=== PATIENT | female | born 1990 | race Caucasian/White ===

== ENCOUNTER 2019-05-21 15:52 | Emergency (ER) | payer OTHER, SELFPAY ==
--- NOTE | ~2019-05-21 | CT_ITS ---
EXAMINATION: CT abdomen pelvis w con DATE: 05/21/2019 17:57 INDICATION: Right upper quadrant abdominal pain. Nausea. TECHNIQUE: Computed tomography (CT) of the abdomen and pelvis was performed with 100 mL Omnipaque-350 intravenous contrast. Automated exposure control and iterative reconstruction technique were employe d. The dose-length product was 847.20 mGy-cm. COMPARISON: None FINDINGS: Minimal dependent atelectasis in the right lower lobe. Heart size is normal. No pericardial or pleura l effusion. Liver, gallbladder, spleen, pancreas, bilateral adrenal glands and kidneys are normal. No abnormal bowel wall thickening or obstruction. Appendix is normal. Bladder is normal. Tampon within the vaginal vault. Anteverted uterus and bilateral adnexa are unremarkable. No free intraperitoneal g as or fluid. No pathologically enlarged abdominal or pelvic lymphadenopathy. IMPRESSION: 1. No acute intra-abdominal/pelvic process. Specifically the gallbladder and appendix are normal. Reviewed, dictated and finalized at location A. NCT PSYCHOLOGY INSTRUCTOR IMPRESSION: 1. No acute intra-abdominal/pelvic process. Specifically the gallbladder and ap pendix are normal.
[2019-05-21 15:57] VITALS: BP 151/102; PULSE 82; RESP 18; TEMP 36.2; O2SAT 98
--- NOTE | 2019-05-21 16:05 | ED.ABDPAIN ---
HPI - Abdominal Pain General Chief Complaint: Abdominal Pain Stated Complaint: abd pain Time Seen by Provider: 05/21/19 15:55 Source: patient Mode of arrival: ambulatory Limitations: no limitations History of Present Illness HPI narrative: A 28 y/o female pt presents to the ED, with c/o constant burning accompanied with intermittent sharp RUQ ABD pain. Pt states that she had an episode similar to this x 1 year ago and was seen at an urgent care who suspected that it may be her gallbladder, and suggested that she follow up with a PCP. She adds that she saw a PCP and had an US, but there were no findings. She notes feeling nauseous and denies any aggravating or alleviating factors. Pt states she feels discomfort with food and liquid intake, but notes this is chronic. She denies any vomiting, diarrhea, constipation, fevers, chills, sweats, dysuria, or frequent/infrequent urination. Pt denies having any significant PMHx and notes being a former smoker, but states that she has quit. She rates her pain as a 7/10 and denies taking any medications prior to arrival to the ED. MD elicited complaint: abdominal pain Onset (ago): hour(s) Pain Consistency: constant and intermittent Location: RUQ Pain scale (0-10): 7 Quality: sharp (intermittent) and burning (constant) Exacerbating factors: nothing Relieving factors: nothing Context: confirms history of similar episodes (x 1 year ago) Associated symptoms: nausea Related Data Home Medications Medication Instructions Recorded Confirmed escitalopram oxalate 20 mg PO HS 05/21/19 Allergies Allergy/AdvReac Type Severity Reaction Status Date / Time No Known Allergies Allergy Verified 05/21/19 16:01 Review of Systems Review of Systems: All systems reviewed & are unremarkable except as noted in HPI and below Constitutional: Constitutional: Denies chills, Denies excessive sweating and Denies fever(s) Gastrointestinal: Gastrointestinal: Reports abdominal pain (burning, sharp RUQ), Denies constipation, Denies diarrhea, Reports nausea, Denies vomiting and Reports other (discomfort with food intake, chronic) Genitourinary: Genitourinary: Denies nocturia, Denies dysuria and Denies other (infrequent urination) [facility] Past Medical History Medical History (Updated 05/21/19 @ 19:27 by Paolo Webb MD) No significant past medical history Surgical History Surgical History (Updated 05/21/19 @ 17:50 by Jessica Daley [employer]) No significant past surgical history Social History Social History (Updated 05/21/19 @ 17:50 by Jessica Daley [employer]) Smoking status: Former smoker Gender identity (if verbalized by the patient): Female Exam Narrative: Exam Narrative: GENERAL: Well-appearing, well-nourished, and in no acute distress. HEAD: Normocephalic, atraumatic. ENT: Mucous membranes moist. CHEST: Clear to auscultation. No respiratory distress. HEART: Regular rate and rhythm. Normal peripheral pulses. ABDOMEN: Soft, mild RUQ tenderness, nondistended. EXTREMITIES: Normal range of motion. No edema. SKIN: Warm, dry, no rash. NEURO: Alert and oriented x3. Course Course Emergency Course: Informed of results. Unremarkable evaluation. Follow-up with PCP. Vital Signs Vital signs: Vital Signs Temperature 97.2 F L 05/21/19 15:57 Pulse Rate 82 05/21/19 15:57 Respiratory Rate 18 05/21/19 15:57 Blood Pressure 151/102 H 05/21/19 15:57 Pulse Oximetry 98 05/21/19 15:57 Temperature 97.2 F L 05/21/19 15:57 Pulse Rate 81 05/21/19 18:41 Respiratory Rate 20 05/21/19 18:41 Blood Pressure 146/104 H 05/21/19 18:41 Pulse Oximetry 99 05/21/19 18:41 MDM - Abdominal Pain Lab Data Result diagrams: 05/21/19 16:04 05/21/19 16:04 Labs: Lab Results 05/21/19 05/21/19 05/21/19 Range/Units 16:04 16:04 16:45 WBC 9.3 (4.5-10.0) K/mm3 RBC 4.49 (4.2-5.4) M/mm3 Hgb 13.5 (12.0-15.0) g/dL Hct 40.6 (37.0-47.0) % M
[2019-05-21 16:19] LABS: Basophils Percent Auto 0.4 % (0.2-1.2); Eosinophils Percent Auto 0.2 % (0-4.4); Hematocrit 40.6 % (37.0-47.0); Hemoglobin 13.5 g/dL (12.0-15.0); Immature Granulocyte Absolute 0.02 K/mm3 (0.00-0.031); Immature Granulocyte Percent A 0.2 % (0-0.5); Lymphocytes Percent Auto 24.8 % (18.3-44.2); Mean Corpuscular HGB Conc 33.3 g/dl (32-36); Mean Corpuscular Hemoglobin 30.1 pg (26-34); Mean Corpuscular Volume 90.4 fl (80-100); Mean Platelet Volume 10.6 fl (7.4-10.4); Monocytes Absolute Auto 0.6 K/mm3 (0.1-0.6); Neutrophils Absolute Auto 6.3 K/mm3 (1.3-6.7); Neutrophils Percent Auto 68.4 % (45.5-73.1); Platelet Count Result 287 k/mm3 (150-375); Red Blood Count 4.49 M/mm3 (4.2-5.4); Red Cell Distribution Width 12.5 % (11.5-14.5); White Blood Count 9.3 K/mm3 (4.5-10.0)
[2019-05-21 16:27] LABS: Alanine Aminotransferase 16 U/L (4-35); Albumin Level 4.6 g/dL (3.5-5.1); Alkaline Phosphatase 68 U/L (38-126); Aspartate Amino Transferase 26 U/L (14-36); Bilirubin,Total 0.4 mg/dL (0.2-1.3); Blood Urea Nitrogen 12 mg/dL (7-17); Calcium 9.1 mg/dL (8.4-10.2); Carbon Dioxide 25 mmol/L (22-30); Chloride 105 mmol/L (98-107); Estimated CRCL calculation 113 ml/min; Estimated Glomerular Filt Rate > 60; Glucose 93 mg/dL (65-105); Lipase 117 U/L (23-300); Potassium 3.7 mmol/L (3.4-5.0); Sodium 139 mmol/L (137-145)
[2019-05-21] MEDS: ONDANSETRON INJ 4 MG/2 ML VIAL IV PUSH (16:38)
[2019-05-21] MEDS: MORPHINE SULFATE 4 MG/ML INJ IV PUSH (16:38)
[2019-05-21] MEDS: SODIUM CHLORIDE 0.9% IV 1,000 ML 999 ML IV CONT (16:43)
[2019-05-21 17:00] LABS: Add Urine Microscopic? YES; Appearance Urine Clear (Clear); Bacteria Urine Trace /hpf; Bilirubin Urine Negative (Negative); Blood Urine 3+ (Negative); Color Urine Yellow (Yellow); Glucose Urine UA Negative (Negative); Ketones Urine Trace mg/dL (Negative); Leukocyte Esterase Ur Negative LEU/UL (Negative); Mucus Urine Rare /lpf; Nitrate Urine Negative (Negative); Protein Urine 1+ mg/dL (Negative); RBC Urine 21-50 /hpf (0-2); Squamous Epithelial Cell Urine Moderate /hpf (Few); WBC Urine 0-3 /hpf
[2019-05-21 17:02] LABS: Specific Grav Ur 1.031 (1.001-1.035)
[2019-05-21] MEDS: BELLADONNA ALK/PHENOB ELIX 10 ML, MAG HYDROX/ALUMINUM HYD/SIMETH 30 ML, LIDOCAINE HCL 2... PO (18:37)
[2019-05-21 18:41] VITALS: BP 146/104; PULSE 81; RESP 20; O2SAT 99
[2019-05-21 19:36] VITALS: BP 138/91; PULSE 72; RESP 20; O2SAT 100
== END 2019-05-21 19:39 | disposition home or self-care (01) ==
PROVIDERS: Emergency Provider Emergency Medicine; PCP Student in an Organized Health Care Education/Training Program
DX: R10.11 Right upper quadrant pain (principal); Z87.891 Personal history of nicotine dependence
CPT/HCPCS: 36415; 74177; 80053; 81001; 81025; 83690; 85025; 96361; 96374; 96375; 99284; A9270; J2270; J2405; J7030; Q9967

== ENCOUNTER 2020-01-23 05:24 | Emergency (ER) | payer OTHER, SELFPAY ==
--- NOTE | ~2020-01-23 | CT_ITS ---
EXAMINATION: CT abdomen pelvis w con INDICATION: Epigastric pain TECHNIQUE: Computed tomographic images of the abdomen and pelvis were obtained after the administrati on of 100 cc of Omnipaque 350 intravenous contrast. The dose-length product (DLP) was 1037.78 mGy-cm. Automated exposure control and iterative reconstruction technique were employed. COMPARISON: 05/21/2019 FINDINGS: Minimal dependent atelectasis is present in the lung bases. The heart size is normal. The l iver, spleen, pancreas, gallbladder, and adrenal glands are normal. The kidneys are unremarkable. No pathologically enlarged abdominal or pelvic lymph nodes are identified. There is no free intraperiton eal gas or evidence of bowel obstruction. There is a greater than expected amount of liquid stool in the colon. The appendix is normal. IMPRESSION: 1. Greater than expected amount of liquid stool in the colon which could reflect enteritis. Reviewed, dictated and finalized at location A. R INSPECTOR IMPRESSION: 1. Greater than expected amount of liquid stool in the colon which could reflec t enteritis.
--- NOTE | 2020-01-23 05:29 | ED.ABDPAIN ---
HPI - Abdominal Pain General Chief Complaint: Abdominal Pain <Abad Bingham MD - Last Filed: 01/23/20 05:43> Stated Complaint: stomach pain <Abad Bingham MD - Last Filed: 01/23/20 05:43> Time Seen by Provider: 01/23/20 05:29 <Abad Bingham MD - Last Filed: 01/23/20 05:43> History of Present Illness HPI narrative: Severe sharp epigastric pain since last night. Radiates to the back. Associated with nausea, no vomiting. She tried tylenol without improvement. SHe has a h/o chronic abdominal pain, but says that this is worse and different. She had a negative CT and gall bladder US in May. <Abad Bingham MD - Last Filed: 01/23/20 05:43> Related Data Home Medications: Home Medications Medication Instructions Recorded Confirmed escitalopram oxalate 20 mg PO HS 05/21/19 escitalopram oxalate 20 mg tablet 20 mg PO DAILY 06/05/19 <Abad Bingham MD - Last Filed: 01/23/20 05:43> Allergies/Adverse Reactions: Allergies Allergy/AdvReac Type Severity Reaction Status Date / Time No Known Allergies Allergy Verified 06/05/19 10:04 <Abad Bingham MD - Last Filed: 01/23/20 05:43> Review of Systems Review of Systems: All systems reviewed & are unremarkable except as noted in HPI and below <Abad Bingham MD - Last Filed: 01/23/20 05:43> Cardiovascular: Cardiovascular: Denies chest pain <Abad Bingham MD - Last Filed: 01/23/20 05:43> Respiratory: Respiratory: Denies dyspnea <Abad Bingham MD - Last Filed: 01/23/20 05:43> Gastrointestinal: Gastrointestinal: Reports abdominal pain, Denies constipation, Denies diarrhea, Reports nausea and Denies vomiting <Abad Bingham MD - Last Filed: 01/23/20 05:43> Genitourinary: Genitourinary: Denies hematuria, Denies nocturia and Denies dysuria <Abad Bingham MD - Last Filed: 01/23/20 05:43> Neurologic: Denies numbness and Denies weakness <Abad Bingham MD - Last Filed: 01/23/20 05:43> [facility] Past Medical History Medical History: Medical History (Updated 01/23/20 @ 07:45 by Patrizia Cardenas MD) No significant past medical history RUQ pain <Abad Bingham MD - Last Filed: 01/23/20 05:43> Surgical History Surgical History: Surgical History No significant past surgical history <Abad Bingham MD - Last Filed: 01/23/20 05:43> Social History Social History: Social History Smoking status: Former smoker Gender identity (if verbalized by the patient): Female <Abad Bingham MD - Last Filed: 01/23/20 05:43> Exam Const: General: no acute distress and alert <Patrizia Cardenas MD - Last Filed: 01/23/20 16:20> Orientation/consciousness: patient oriented x3 <Patrizia Cardenas MD - Last Filed: 01/23/20 16:20> Resp: Effort & Inspection: normal respiratory effort and no retractions <Patrizia Cardenas MD - Last Filed: 01/23/20 16:20> Auscultation: clear to auscultation bilaterally <Patrizia Cardenas MD - Last Filed: 01/23/20 16:20> Cardio: Rate: regular rate <Patrizia Cardenas MD - Last Filed: 01/23/20 16:20> Rhythm: regular rhythm <Patrizia Cardneas MD - Last Filed: 01/23/20 16:20> Heart sounds: no murmurs <Patrizia Cardenas MD - Last Filed: 01/23/20 16:20> GI: GI Palp: Yes Soft to palpation, Yes Tenderness to palpation present (GI) (epigastric, RUQ, LUQ), No Guarding due to palpation present (GI), No Rigid due to palpation and No Hernia present <Patrizia Cardenas MD - Last Filed: 01/23/20 16:20> Skin: General skin exam: normal color <Patrizia Cardenas MD - Last Filed: 01/23/20 16:20> Rashes: no rashes <Patrizia Cardenas MD - Last Filed: 01/23/20 16:20> Neuro: General: patient oriented x3 <Patrizia Cardenas MD - Last Filed: 01/23/20 16:20> Psych: Mental Status: mental status grossly normal <Patrizia Cardenas MD - Last Filed:
[2020-01-23 05:38] VITALS: BP 140/98; PULSE 103; RESP 22; TEMP 36.4; O2SAT 94
[2020-01-23] MEDS: ONDANSETRON INJ 4 MG/2 ML VIAL IV PUSH (05:49)
[2020-01-23] MEDS: SODIUM CHLORIDE 0.9% IV 1,000 ML 999 ML IV CONT (05:49)
[2020-01-23] MEDS: PANTOPRAZOLE SODIUM IV 40 MG VIAL IV PUSH (05:49)
[2020-01-23] MEDS: fentaNYL CITRATE INJ (*CRX) 100 MCG/2 ML VIAL 50 MCG IV PUSH (05:49)
[2020-01-23 06:02] LABS: Basophils Percent Auto 0.3 % (0.2-1.2); Hematocrit 42.2 % (37.0-47.0); Hemoglobin 14.5 g/dL (12.0-15.0); Immature Granulocyte Absolute 0.04 K/mm3 (0.00-0.031); Immature Granulocyte Percent A 0.4 % (0-0.5); Lymphocytes Absolute Auto 0.64 K/mm3 (0.9-3.2); Lymphocytes Percent Auto 6.3 % (18.3-44.2); Mean Corpuscular HGB Conc 34.4 g/dl (32-36); Mean Corpuscular Hemoglobin 30.7 pg (26-34); Mean Corpuscular Volume 89.4 fl (80-100); Mean Platelet Volume 10.5 fl (7.4-10.4); Monocytes Absolute Auto 0.8 K/mm3 (0.1-0.6); Monocytes Percent Auto 7.5 % (2.6-8.5); Neutrophils Absolute Auto 8.7 K/mm3 (1.3-6.7); Neutrophils Percent Auto 85.5 % (45.5-73.1); Platelet Count Result 265 k/mm3 (150-375); Red Blood Count 4.72 M/mm3 (4.2-5.4); White Blood Count 10.2 K/mm3 (4.5-10.0)
[2020-01-23 06:23] LABS: Alanine Aminotransferase 19 U/L (4-35); Albumin Level 4.5 g/dL (3.5-5.1); Alkaline Phosphatase 66 U/L (38-126); Anion Gap 13 mmol/L (8-16); Aspartate Amino Transferase 33 U/L (14-36); Bilirubin,Total 0.9 mg/dL (0.2-1.3); Blood Urea Nitrogen 11 mg/dL (7-17); Calcium 9.2 mg/dL (8.4-10.2); Carbon Dioxide 21 mmol/L (22-30); Chloride 105 mmol/L (98-107); Estimated CRCL calculation 110 ml/min; Estimated Glomerular Filt Rate > 60; Glucose 129 mg/dL (65-105); Lipase 164 U/L (23-300); Potassium 3.8 mmol/L (3.4-5.0); Sodium 139 mmol/L (137-145)
[2020-01-23 06:58] LABS: Add Urine Microscopic? YES; Appearance Urine Clear (Clear); Bacteria Urine Trace /hpf; Bilirubin Urine Negative (Negative); Blood Urine 2+ (Negative); Color Urine Yellow (Yellow); Glucose Urine UA Negative (Negative); Ketones Urine Trace mg/dL (Negative); Leukocyte Esterase Ur Negative LEU/UL (Negative); Mucus Urine Rare /lpf; Nitrate Urine Negative (Negative); Protein Urine 1+ mg/dL (Negative); Squamous Epithelial Cell Urine Few /hpf (Few); Urobilinogen Urine Negative mg/dL (<2.0); WBC Urine 0-3 /hpf
== END 2020-01-23 08:20 | disposition home or self-care (01) ==
PROVIDERS: Emergency Provider Emergency Medicine; PCP Student in an Organized Health Care Education/Training Program
DX: K52.9 Noninfective gastroenteritis and colitis, unspecified (principal)
CPT/HCPCS: 36415; 74177; 80053; 81001; 81025; 83690; 85025; 96361; 96374; 96375; 99284; C9113; J2405; J3010; J7030; Q9967

== ENCOUNTER 2024-04-07 07:15 | Observation (INO) | payer OTHER, SELFPAY ==
--- NOTE | ~2024-04-07 | CT_ITS ---
EXAMINATION: CT abdomen pelvis w con DATE: 04/07/2024 08:58 INDICATION: Abdominal pain TECHNIQUE: Computed tomography (CT) of the abdomen and pelvis was performed with 100 mL Omnipaque-350 intravenous contrast. Automated exposure control and iterative reconstruction technique were employe d. The dose-length product was 704.51 mGy-cm. COMPARISON: 09/22/2019 FINDINGS: Dependent atelectasis in bilateral lower lobes. Heart size is normal. No pericardial or pleural effus ion. Subcentimeter low-attenuation cyst versus hemangioma in the left hepatic lobe. Mild focal hepati c steatosis along the ligamentum teres and the gallbladder fossa spleen, pancreas, bilateral adrenal glands and kidneys are normal. Bladder and anteverted uterus are normal. 2.6 m cystic lesion at the r ight adnexa. Normal appendix. No bowel obstruction. Complex ascites with surrounding stranding in the cul-de-sac and along the bilateral adnexa with mild stranding along the adjacent distal sigmoid colo n. No organized abscess or free intraperitoneal gas. No pathologically enlarged abdominal or pelvic l ymphadenopathy. Bones are unremarkable. IMPRESSION: 1. Complex ascites and surrounding stranding in the deep pelvis. Differential would include hemoperit oneum potentially related to ovarian cyst rupture 2.5 cm cystic lesion at the right adnexa or periton itis which could relate either diverticulitis or pelvic inflammatory disease. Reviewed, dictated and finalized at location [facility] IMPRESSION: 1. Complex ascites and surrounding stranding in the deep pelvis. Differential w ould include hemoperitoneum potentially related to ovarian cyst rupture 2.5 cm cystic lesion at the right adnexa or peritonitis which could relate either dive rticulitis or pelvic inflammatory disease.
[2024-04-07 07:17] VITALS: BP 153/98; PULSE 122; RESP 17; TEMP 37.1; O2SAT 98
[2024-04-07 07:35] LABS: BEDSIDEPREGUCG Negative (Negative)
[2024-04-07 07:41] LABS: Basophils Absolute Auto 0.1 K/mm3 (0.0-0.1); Basophils Percent Auto 0.4 % (0.2-1.2); Eosinophils Absolute Auto 0.1 K/mm3 (0-0.3); Eosinophils Percent Auto 0.4 % (0-4.4); Hematocrit 37.6 % (37.0-47.0); Hemoglobin 12.8 g/dL (12.0-15.0); Immature Granulocyte Absolute 0.06 K/mm3 (0.00-0.031); Immature Granulocyte Percent A 0.4 % (0-0.5); Lymphocytes Absolute Auto 1.98 K/mm3 (0.9-3.2); Lymphocytes Percent Auto 14.1 % (18.3-44.2); Mean Corpuscular Hemoglobin 31.2 pg (26-34); Mean Corpuscular Volume 91.7 fl (80-100); Mean Platelet Volume 9.9 fl (7.4-10.4); Monocytes Absolute Auto 1.2 K/mm3 (0.1-0.6); Monocytes Percent Auto 8.4 % (2.6-8.5); Neutrophils Absolute Auto 10.7 K/mm3 (1.3-6.7); Neutrophils Percent Auto 76.3 % (45.5-73.1); Platelet Count Result 345 k/mm3 (150-375)
[2024-04-07 08:02] LABS: Add Urine Microscopic? YES; Appearance Urine Cloudy (Clear); Bilirubin Urine 1+ (Negative); Blood Urine 1+ (Negative); Color Urine Dark Yellow (Yellow); Glucose Urine UA Negative (Negative); Ketones Urine 2+ mg/dL (Negative); Leukocyte Esterase Ur 2+ LEU/UL (Negative); Nitrate Urine Negative (Negative); Protein Urine 1+ mg/dL (Negative); Specific Grav Ur 1.036 (1.001-1.035); pH Urine 5.5 (5.0-9.0)
[2024-04-07] MEDS: SODIUM CHLORIDE 0.9% IV 1,000 ML 999 ML IV CONT (08:05)
[2024-04-07] MEDS: MORPHINE SULFATE (*CRX) 4 MG/ML INJ IV PUSH (08:05)
[2024-04-07] MEDS: ONDANSETRON INJ 4 MG/2 ML VIAL IV PUSH ×2 (08:06→15:04)
[2024-04-07 08:12] LABS: Bacteria Urine 3+ /hpf; Squamous Epithelial Cell Urine Moderate /hpf (Few); WBC Urine 21-50 /hpf (0-3)
[2024-04-07 08:26] LABS: Need Manual Microscopic Reviewed
[2024-04-07 08:57] LABS: Estimated CRCL calculation 93 ml/min; Estimated Glomerular Filt Rate > 60
[2024-04-07 09:07] LABS: Alanine Aminotransferase 16 U/L (6-35); Anion Gap 12 mmol/L (4-12); Aspartate Amino Transferase 22 U/L (14-36); Bilirubin,Total 1.2 mg/dL (0.2-1.3); Blood Urea Nitrogen 12 mg/dL (7-17); Calcium 9.3 mg/dL (8.4-10.2); Carbon Dioxide 19 mmol/L (22-30); Chloride 107 mmol/L (98-107); Estimated CRCL calculation 92 ml/min; Estimated Glomerular Filt Rate > 60; Glucose 117 mg/dL (65-110); Potassium 3.8 mmol/L (3.4-5.0); Sodium 138 mmol/L (137-145); Total Protein 7.9 g/dL (6.3-8.2)
[2024-04-07 09:08] LABS: Albumin Level 4.6 g/dL (3.5-5.1); Alkaline Phosphatase 69 U/L (38-126); Lipase 190 U/L (23-300)
--- NOTE | 2024-04-07 09:58 | ED_ITS ---
HPI - General Adult General Chief complaint: Abdominal Pain Stated complaint: abd pain Time Seen by Provider: 04/07/24 07:39 History of Present Illness HPI narrative: Year old female who presents emergency department with chief complaint of abdominal pain. Patient reports he has been having some diarrhea and nausea the patient states the pain started on the 15th reports that started in the lower portions of her abdomen and has moved up to her abdomen the patient reports she has had sweats and has had chills the patient reports no vaginal discharge reports no blood in her diarrhea denies actual vomiting. Related Data Home Medications ?Medication ?Instructions ?Recorded ?Confirmed ?Last Taken ?Type escitalopram oxalate 20 mg tablet 20 mg PO HS 05/21/19 Unknown History escitalopram oxalate 20 mg tablet 20 mg PO DAILY 06/05/19 Unknown History (Lexapro) Allergies Allergy/AdvReac Type Severity Reaction Status Date / Time No Known Allergies Allergy Verified 04/07/24 07:19 Review of Systems 2 Review of Systems: A 10 system review of systems was completed on the patient and is negative except for what is stated in the HPI. Nursing and ancillary documentation was reviewed. [facility] Past Medical History Medical History RUQ pain No significant past medical history Surgical History Surgical History No significant past surgical history Social History Social History Smoking status: Former smoker Gender identity (if verbalized by the patient): Female Exam 2 Narrative: GENERAL: Well-appearing, well-nourished, and in no acute distress. HEAD: Normocephalic, atraumatic. EYES: PERRLA and EOMI. ENT: Nares clear, no rhinorrhea or epistaxis. Mucous membranes moist. NECK: Supple. CHEST: Clear to auscultation. No respiratory distress. HEART: Regular rate and rhythm. No murmur heard. Normal peripheral pulses. ABDOMEN: Soft, diffuse tenderness to palpation throughout the abdomen no guarding or rebound noted, nondistended, normal active bowel sounds. : Pelvic exam showed whitish discharge EXTREMITIES: Normal range of motion. No edema. SKIN: Warm, dry, no rash. NEURO: No focal deficits. Alert and oriented x3. PSYCH: Normal mood and affect. Course Vital Signs Vital signs: Vital Signs Temperature 37.1 C 04/07/24 07:17 Pulse Rate 122 H 04/07/24 07:17 Respiratory Rate 17 04/07/24 07:17 Blood Pressure 153/98 H 04/07/24 07:17 Pulse Oximetry 98 04/07/24 07:17 Oxygen Delivery Room Air 04/07/24 07:17 Temperature 36.4 C L 04/07/24 11:11 Pulse Rate 85 04/07/24 12:25 Respiratory Rate 16 04/07/24 12:25 Blood Pressure 118/89 04/07/24 12:25 Pulse Oximetry 98 04/07/24 12:25 Oxygen Delivery Room Air 04/07/24 07:17 Medical Decision Making MDM Narrative Medical decision making narrative: Differential diagnosis includes PID, TOA, diverticulitis, colitis, appendicitis, Laboratory studies were obtained on the patient showed a white count 14 electrolytes were within normal limits urinalysis showed 21-50 white blood cells in the urine 2+ leukocyte esterase and 3+ bacteria CT scan of the abdomen pelvis showed Dependent atelectasis in bilateral lower lobes. Heart size is normal. No pericardial or pleural effusion. Subcentimeter low-attenuation cyst versus hemangioma in the left hepatic lobe. Mild focal hepatic steatosis along the ligamentum teres and the gallbladder fossa spleen, pancreas, bilateral adrenal glands and kidneys are normal. Bladder and anteverted uterus are normal. 2.6 m cystic lesion at the right adnexa. Normal appendix. No bowel obstruction. Complex ascites with surrounding stranding in the cul-de-sac and along the bilateral adnexa with mild stranding along the adjacent distal sigmoid colon. No organized abscess or free intraperitoneal gas. No pathologically enlarged abdominal or pelvic lymphadenopathy. Bones are unremarkable. IMPRESSION: 1. Complex ascites and surrounding stranding in the deep pelvis. Differential would include hemoperitoneum potentially related to ovarian cyst rupture 2.5 cm cystic lesion at the right adnexa or peritonitis which could relate either diverticulitis or pelvic inflammatory disease. Given the patient's pain and the findings on the CT scan and the pelvic exam case was discussed with Dr. Fulton of the OBGYN service. The patient was started on Rocephin Flagyl and doxycycline the case will also be discussed with hospitalist and the general surgeon on-call Vital Signs Vital Signs: Vital Signs Temperature 37.1 C 04/07/24 07:17 Pulse Rate 122 H 04/07/24 07:17 Respiratory Rate 17 04/07/24 07:17 Blood Pressure 153/98 H 04/07/24 07:17 Pulse Oximetry 98 04/07/24 07:17 Oxygen Delivery Room Air 04/07/24 07:17 Temperature 36.4 C L 04/07/24 11:11 Pulse Rate 85 04/07/24 12:25 Respiratory Rate 16 04/07/24 12:25 Blood Pressure 118/89 04/07/24 12:25 Pulse Oximetry 98 04/07/24 12:25 Oxygen Delivery Room Air 04/07/24 07:17 Lab Data 04/07/24 07:31 04/07/24 08:52 Labs: Lab Results 04/07/24 04/07/24 04/07/24 Range/Units 07:31 07:33 08:52 WBC 14.0 H (4.5-10.0) K/mm3 RBC 4.10 L (4.2-5.4) M/mm3 Hgb 12.8 (12.0-15.0) g/dL Hct 37.6 (37.0-47.0) % MCV 91.7 (80-100) fl MCH 31.2 (26-34) pg MCHC 34.0 (32-36) g/dl RDW 12.0 (11.5-14.5) % Plt Count 345 (150-375) k/mm3 MPV 9.9 (7.4-10.4) fl Immature Gran % (Auto) 0.4 (0-0.5) % Neut % (Auto) 76.3 H (45.5-73.1) % Lymph % (Auto) 14.1 L (18.3-44.2) % [place] % (Auto) 8.4 (2.6-8.5) % Eos % (Auto) 0.4 (0-4.4) % Baso % (Auto) 0.4 (0.2-1.2) % Lymph # (Auto) 1.98 (0.9-3.2) K/mm3 [place] # (Auto) 1.2 H (0.1-0.6) K/mm3 Eos # (Auto) 0.1 (0-0.3) K/mm3 Baso # (Auto) 0.1 (0.0-0.1) K/mm3 Abs Immat Gran (auto) 0.06 H (0.00-0.031) K/mm3 Absolute Neuts (auto) 10.7 H (1.3-6.7) K/mm3 Absolute Nucleated RBC 0.000 (0.0-0.012) K/mm3 Nucleated RBC % 0.0 (0.0-0.2) % Sodium 138 (137-145) mmol/L Potassium 3.8 (3.4-5.0) mmol/L Chloride 107 (98-107) mmol/L Carbon Dioxide 19 L (22-30) mmol/L Anion Gap 12 (4-12) mmol/L BUN 12 (7-17) mg/dL Creatinine 0.81 0.80 (0.7-1.0) mg/dL Estim Creat Clear Calc 92 93 ml/min Estimated GFR > 60 > 60 (59 - ) Glucose 117 H (65-110) mg/dL Calcium 9.3 (8.4-10.2) mg/dL Total Bilirubin 1.2 (0.2-1.3) mg/dL AST 22 (14-36) U/L ALT 16 (6-35) U/L Alkaline Phosphatase 69 (38-126) U/L Total Protein 7.9 (6.3-8.2) g/dL Albumin 4.6 (3.5-5.1) g/dL Lipase 190 (23-300) U/L Urine Color Dark yellow (Yellow) Urine Appearance Cloudy H (Clear) Urine pH 5.5 (5.0-9.0) Ur Specific [place] 1.036 H (1.001-1.035) Urine Protein 1+ H (Negative) mg/dL Urine Glucose (UA) Negative (Negative) mg/dL Urine Ketones 2+ H (Negative) mg/dL Ur Blood (Man) 1+ H (Negative) Urine Nitrate Negative (Negative) Urine Bilirubin 1+ H (Negative) Urine Urobilinogen 1.0 (<2.0) mg/dL Add Ur Microanalysis Reviewed Leukocyte Esterase Rfl 2+ H (Negative) PAOLA/UL Urine RBC 6-10 H (0-2) /hpf Urine WBC 21-50 H (0-3) /hpf Ur Squamous Epith Cells Moderate (Few) /hpf Urine Bacteria 3+ H /hpf Urine Casts ---- POC Urine HCG, Qual Negative (Negative) C. trachomatis (PCR) (NOT DETECTE) N. gonorrhoeae (PCR) (NOT DETECTE) T. vaginalis (PCR) (NOT DETECTE) 04/07/24 Range/Units 10:21 WBC (4.5-10.0) K/mm3 RBC (4.2-5.4) M/mm3 Hgb (12.0-15.0) g/dL Hct (37.0-47.0) % MCV (80-100) fl MCH (26-34) pg MCHC (32-36) g/dl RDW (11.5-14.5) % Plt Count (150-375) k/mm3 MPV (7.4-10.4) fl Immature Gran % (Auto) (0-0.5) % Neut % (Auto) (45.5-73.1) % Lymph % (Auto) (18.3-44.2) % [place] % (Auto) (2.6-8.5) % Eos % (Auto) (0-4.4) % Baso % (Auto) (0.2-1.2) % Lymph # (Auto) (0.9-3.2) K/mm3 [place] # (Auto) (0.1-0.6) K/mm3 Eos # (Auto) (0-0.3) K/mm3 Baso # (Auto) (0.0-0.1) K/mm3 Abs Immat Gran (auto) (0.00-0.031) K/mm3 Absolute Neuts (auto) (1.3-6.7) K/mm3 Absolute Nucleated RBC (0.0-0.012) K/mm3 Nucleated RBC % (0.0-0.2) % Sodium (137-145) mmol/L Potassium (3.4-5.0) mmol/L Chloride (98-107) mmol/L Carbon Dioxide (22-30) mmol/L Anion Gap (4-12) mmol/L BUN (7-17) mg/dL Creatinine (0.7-1.0) mg/dL Estim Creat Clear Calc ml/min Estimated GFR (59 - ) Glucose (65-110) mg/dL Calcium (8.4-10.2) mg/dL Total Bilirubin (0.2-1.3) mg/dL AST (14-36) U/L ALT (6-35) U/L Alkaline Phosphatase (38-126) U/L Total Protein (6.3-8.2) g/dL Albumin (3.5-5.1) g/dL Lipase (23-300) U/L Urine Color (Yellow) Urine Appearance (Clear) Urine pH (5.0-9.0) Ur Specific [place] (1.001-1.035) Urine Protein (Negative) mg/dL Urine Glucose (UA) (Negative) mg/dL Urine Ketones (Negative) mg/dL Ur Blood (Man) (Negative) Urine Nitrate (Negative) Urine Bilirubin (Negative) Urine Urobilinogen (<2.0) mg/dL Add Ur Microanalysis Leukocyte Esterase Rfl (Negative) PAOLA/UL Urine RBC (0-2) /hpf Urine WBC (0-3) /hpf Ur Squamous Epith Cells (Few) /hpf Urine Bacteria /hpf Urine Casts POC Urine HCG, Qual (Negative) C. trachomatis (PCR) Not detected (NOT DETECTE) N. gonorrhoeae (PCR) Not detected (NOT DETECTE) T. vaginalis (PCR) Not detected (NOT DETECTE) Discharge Plan Discharge Clinical Impression: Abdominal pain, UTI (urinary tract infection) Patient Disposition: Still a Patient Condition: Stable Instructions: Antibiotic Form Patient Language: Romanian Prescriptions: No Action escitalopram oxalate [Lexapro] 20 mg tablet 20 mg PO DAILY hyoscyamine sulfate [Levsin] 0.125 mg tablet 0.125 mg PO QID Qty: 20 0RF promethazine 12.5 mg tablet 12.5 mg PO TID PRN (Reason: nausea and vomiting) Qty: 14 0RF Rx Instructions: 3 doses during day; last dose no later than 4 hr before bedtime pantoprazole [Protonix] 40 mg tablet,delayed release (DR/EC) 40 mg PO QAM 28 Days Qty: 28 0RF escitalopram oxalate 20 mg tablet 20 mg PO HS simethicone 125 mg capsule 125 mg PO QID Qty: 20 0RF Rx Instructions: administer after meals and at bedtime dicyclomine 20 mg tablet 20 mg PO QID Qty: 20 0RF Follow-up/Referrals: Luchteld,DO Onur [Primary Care Provider] - Time of Disposition: 10:02
[2024-04-07] MEDS: DOXYCYCLINE 100 MG/NS 100 ML 100 MG/100 ML BAG IVPB ×2 (10:50→21:07)
[2024-04-07 11:11] VITALS: BP 137/96; PULSE 98; RESP 18; TEMP 36.4; O2SAT 97
[2024-04-07 11:43] LABS: Trichomonas Vag PCR NOT DETECTED (NOT DETECTE)
[2024-04-07 12:08] LABS: Chlamydia trachomatis NOT DETECTED (NOT DETECTE); Neisseria gonorrhoeae PCR NOT DETECTED (NOT DETECTE)
[2024-04-07] MEDS: metroNIDAZOLE 500 MG/ISO 100ML 500 MG/100 ML BAG 100 MG IVPB ×2 (12:23→17:05)
[2024-04-07 12:25] VITALS: BP 118/89; PULSE 85; RESP 16; O2SAT 98
--- NOTE | 2024-04-07 13:12 | PM.IMHP ---
H&P: HPI History of Present Illness Date/Time: 04/07/24 13:12 Chief Complaint: Abdominal Pain Narrative: 33 y/o F presents here with abdominal pain with no significant past medical history. The patient presents here from home with abdominal pain. She reports the abdominal pain initially began 2 days ago on 04/05. She describes the abdominal pain as lower abdominal but is now diffuse, radiating into her right shoulder, intermittent, episode lengths very, aggravated by bending/coughing/laughing, and no alleviating factors. Patient was taking 1G of Tylenol 3 times per day without relief. Pain is accompanied by diarrhea, nausea without vomiting, chills, and cold sweats. Denies accompanying fever or shortness of breath. Patient denies any recent blunt abdominal trauma, or recent . LBM was yesterday. Patient reports she has had 2 episodes of diarrhea in the last 24 hours. Patient also attempted bowel rest without relief. Initial VS at presentation: 98.7? F, HR 122, RR 17, 153/98, and 98% on RA. ED workup showed: WBC 14.0, no anemia, creatinine 0.8 and GFR >60, glucose 117, and UA equivocal for infection (may be contaminant), test negative, chlamydia/gonorrhea/Trichomonas negative. CT of the abdomen/pelvis showed complex ascites and surrounding stranding in the deep pelvis. Review of Systems Review of Systems: All systems reviewed & are unremarkable except as noted in HPI and below PMFSH Past Medical History Medical History No significant past medical history Surgical History Surgical History No significant past surgical history Social History Social History Smoking status: Former smoker Tobacco type: cigarettes Alcohol intake: never Substance use: never Substance use type: does not use Do You Feel Safe in your Home?: Yes Lack of Transportation: No Lack of Food: Never True Current Housing: I Have Housing Concerned About Future Housing: No Difficulty Paying Gas/Electric Bills: No Difficulty Paying for Meds: No Currently Unemployed: No Education: Bachelor's Degree Difficulty w/ Childcare or Family Care: No Gender identity (if verbalized by the patient): Female Spiritual care concerns: No Meds Home Medications and Allergies Home Medications ?Medication ?Instructions ?Recorded ?Confirmed ?Type cariprazine 3 mg capsule (Vraylar) 3 mg PO HS 04/07/24 04/07/24 History lamotrigine 100 mg tablet 100 mg PO Q12H 04/07/24 04/07/24 History sertraline 100 mg tablet 100 mg PO HS 04/07/24 04/07/24 History Allergies Allergy/AdvReac Type Severity Reaction Status Date / Time No Known Allergies Allergy Verified 04/07/24 07:19 Vital Signs Vital Signs - 24 hr 04/07/24 07:17 04/07/24 11:11 04/07/24 12:25 Temperature 98.7 F 97.5 F L Pulse Rate 122 H 98 85 Respiratory Rate 17 18 16 Blood Pressure 153/98 H 137/96 H 118/89 Pulse Oximetry 98 97 98 Oxygen Delivery Room Air Exam Const: General: comfortable and no acute distress Other: , female common nontoxic appearance HENMT: Face/Nose/Sinus: Normal nares present Mouth: Yes moist mucous membranes Eyes: General: appearance normal, both eyes and all related structures Sclera: sclerae normal Pupils: Equal, round and reactive pupils present EOM: EOMs intact bilaterally Resp: Effort & Inspection: normal respiratory effort Auscultation: clear to auscultation bilaterally Cardio: Rate: regular rate Rhythm: regular rhythm Other: S1-S2 present without murmur, rub, ectopy GI: Other: Abdomen soft, nondistended. Generalized tenderness, more severe in the umbilical region and suprapubic/lower abdomen. Skin: General skin exam: normal color and no rashes or lesions noted Wounds: no wounds Neuro: General: gait normal Speech: normal speech Motor exam (neuro): 5/5 motor strength present throughout Sensory Exam: normal sensation Other: A&O x4 Extrem: General: normal to inspection Psych: Mental Status: mental status grossly normal Affect: normal affect Other: Good insight judgment, pleasant H&P: Results Labs Labs: Short CBC 04/07/24 Range/Units 07:31 WBC 14.0 H (4.5-10.0) K/mm3 Hgb 12.8 (12.0-15.0) g/dL Hct 37.6 (37.0-47.0) % Plt Count 345 (150-375) k/mm3 BMP 04/07/24 04/07/24 07:31 08:52 Sodium 138 Potassium 3.8 Chloride 107 Carbon Dioxide 19 L BUN 12 Creatinine 0.81 0.80 Glucose 117 H Calcium 9.3 Liver Function 04/07/24 Range/Units 07:31 Total Bilirubin 1.2 (0.2-1.3) mg/dL AST 22 (14-36) U/L ALT 16 (6-35) U/L Alkaline Phosphatase 69 (38-126) U/L Albumin 4.6 (3.5-5.1) g/dL Urine 04/07/24 Range/Units 07:31 Urine Color Dark yellow (Yellow) Urine Appearance Cloudy H (Clear) Urine pH 5.5 (5.0-9.0) Ur Specific [place] 1.036 H (1.001-1.035) Urine Protein 1+ H (Negative) mg/dL Urine Glucose (UA) Negative (Negative) mg/dL Assessment and Plan Assessment and plan (1) Sepsis: Qualifiers: Sepsis acute organ dysfunction status: without acute organ dysfunction Sepsis type: sepsis due to unspecified organism Qualified Code(s): A41.9 - Sepsis, unspecified organism Code(s): A41.9 - Sepsis, unspecified organism Status: Acute Assessment and Plan: - meets SIRS criteria: HR, WBC - lactic acid and procalcitonin ordered - 30 mL/kg bolus ordered - suspected source: pelvic process, possible UTI - started on ceftriaxone, doxycycline, metronidazole - blood cultures drawn on 04/07 (2) Abdominal pain: Qualifiers: Abdominal location: generalized Qualified Code(s): R10.84 - Generalized abdominal pain Code(s): R10.9 - Unspecified abdominal pain Status: Acute Assessment and Plan: - CT abd/pelvis: Complex ascites and surrounding stranding in the deep pelvis. Differential would include hemoperitoneum potentially related to ovarian cyst rupture 2.5 cm cystic lesion at the right adnexa or peritonitis which could relate either diverticulitis or pelvic inflammatory disease. - started on ceftriaxone, doxycycline, and Flagyl on 04/07 - analgesics and antipyretics p.r.n. - general surgery consulted, awaiting formal recs - Civil Service Worker consulted, awaiting formal recs - add PT/PTT/INR Differential includes ruptured ovarian cyst, diverticulitis, and PID. Patient's UA suspicious for UTI, see below. STD testing including chlamydia, gonorrhea, and Trichomonas negative. test negative. (3) UTI (urinary tract infection): Qualifiers: Hematuria presence: without hematuria Urinary tract infection type: acute cystitis Qualified Code(s): N30.00 - Acute cystitis without hematuria Code(s): N39.0 - Urinary tract infection, site not specified Status: Suspected Assessment and Plan: - UA: cloudy, sp gravity 1.036, 4+ protein, 2+ ketones, 1+ blood, 1+ bilirubin, 2+ leuks, 6-10 RBC, 21-50 WBC, moderate epithelial cells, 3+ bacteria - UC pending, update on 04/07 - no previous micro available for review - started on Ceftriaxone on 04/07 Plan Diet: NPO GI Prophylaxis: Not currently indicated DVT Prophylaxis: Not currently indicated Lines: Peripheral Code Status: Full code Quality If No VTE Prophylaxis Answer both mechanical and pharmacologic: Reason no mechanical VTE proph: low risk/not indicated Reason no pharmacologic proph: low risk/not indicated Hospitalist MIPS Advance Care Plan I have confirmed that the patient's Advanced Care Plan is present, code status is documented, or surrogate decision maker is listed in patient medical record.: Yes Medication Reconciliation I have utilized all available resources to obtain, update and review the patients current medications (includes all prescriptions, OTC, herbals, cannabis, and nutritional supplements).: Yes
[2024-04-07 14:14] VITALS: BP 118/75; PULSE 97; RESP 16; O2SAT 98
[2024-04-07] MEDS: LACTATED RINGERS 1,000 ML 999 ML IV CONT (14:21)
--- NOTE | 2024-04-07 14:23 | PC.NURSE ---
Dr Joe at bedside
[2024-04-07 14:53] VITALS: BMI 32.5
--- NOTE | 2024-04-07 14:56 | WPDCN ---
Assessment and Plan Assessment and plan (1) Abdominal pain: Code(s): R10.9 - Unspecified abdominal pain Status: Acute Assessment and Plan: Patient admitted to the hospital with lower abdominal pain and CT findings of complex fluid collection in the pelvis surrounding a 2.5cm right ovarian cyst. This could certainly represent hemoperitoneum ruptured ovarian cyst. She has not had any prior history of diverticulitis. Sigmoid colon is not appear to be very inflamed on CT scan. I would expect her to be much more ill if she had a perforation were sigmoid colon from diverticulitis causing this amount of fluid [place] [address] which can certainly be due to irritation the pelvis from hemoperitoneum. At this point I have a very low suspicion that she has a acute surgical issue which would need emergent surgical management. I think she can go ahead and have a diet. If she has hemoperitoneum irritation causing her to have abdominal pain then the use of nonsteroidal anti-inflammatory medications would probably be best treatment at the present time. Will follow. HPI Data of Consult Date/Time: 04/07/24 14:56 Requesting Physician: Mervin Serna MD Primary Care Provider: Onur Ingram, DO Consult Narrative Reason for consult: Lower abdominal pain, abnormal CT abdomen pelvis Narrative: Georgette Reina is a 33 year old female who presents to the emergency room today complaining of I almost 2 day history of worsening lower abdominal pain which seems to be moving towards the upper portions of the abdomen. Had some diarrhea which was nonbloody. Low bit of nausea [place] [address]. She has not had a prior history of any diverticulitis or ovarian cysts in the past. There is a family history of inflammatory bowel disease but patient has not had any chronic abdominal issues. CT scan abdomen pelvis was performed showing some of complex fluid in the pelvis and a 2.5cm right ovarian cyst. There is no obvious evidence of inflammation of the sigmoid colon itself. Fluid on CT scan could be hemoperitoneum for ruptured ovarian cyst but diverticulitis could not be ruled out. Presently the patient's pain is very mild. She has a able to get up and get out of bed and get to wheelchair very easily without any significant pain. Her from ambulating. Review of Systems Review of Systems: The remainder of the review of systems to include constitutional, HEENT, cardiovascular, respiratory, GI, , integumentary, musculoskeletal, endocrine, immunologic, hematologic, psychiatric, and neurologic are all negative except for which is mentioned above in the HPI. [facility] Past Medical History Medical History No significant past medical history Surgical History Surgical History No significant past surgical history Social History Social History Smoking status: Former smoker Gender identity (if verbalized by the patient): Female Meds Home Medications and Allergies Home Medications ?Medication ?Instructions ?Recorded ?Confirmed ?Type dicyclomine 20 mg tablet 20 mg PO QID #20 tabs 05/21/19 Rx escitalopram oxalate 20 mg tablet 20 mg PO HS 05/21/19 History simethicone 125 mg capsule 125 mg PO QID abdominal distention 05/21/19 Rx #20 caps escitalopram oxalate 20 mg tablet 20 mg PO DAILY 06/05/19 History (Lexapro) hyoscyamine sulfate 0.125 mg 0.125 mg PO QID #20 tabs 01/23/20 Rx tablet (Levsin) pantoprazole 40 mg tablet,delayed 40 mg PO QAM 4 weeks #28 tabs 01/23/20 Rx release (Protonix) promethazine 12.5 mg tablet 12.5 mg PO TID PRN nausea and 01/23/20 Rx vomiting #14 tabs cariprazine 3 mg capsule (Vraylar) 3 mg PO HS 04/07/24 04/07/24 History lamotrigine 100 mg tablet 100 mg PO Q12H 04/07/24 04/07/24 History sertraline 100 mg tablet 100 mg PO HS 04/07/24 04/07/24 History Allergies Allergy/AdvReac Type Severity Reaction Status Date / Time No Known Allergies Allergy Verified 04/07/24 07:19 Vital Signs Vital Signs - 24 hr 04/07/24 07:17 04/07/24 11:11 04/07/24 12:25 Temperature 37.1 C 36.4 C L Pulse Rate 122 H 98 85 Respiratory Rate 17 18 16 Blood Pressure 153/98 H 137/96 H 118/89 Pulse Oximetry 98 97 98 Oxygen Delivery Room Air 04/07/24 14:14 Temperature Pulse Rate 97 Respiratory Rate 16 Blood Pressure 118/75 Pulse Oximetry 98 Oxygen Delivery Exam Const: General: comfortable and no acute distress HENMT: Ears: TM's normal bilaterally Face/Nose/Sinus: Normal nares present Mouth: Yes moist mucous membranes Eyes: General: appearance normal, both eyes and all related structures Sclera: sclerae normal Pupils: Equal, round and reactive pupils present EOM: EOMs intact bilaterally Neck: Neck: supple and no JVD Resp: Effort & Inspection: normal respiratory effort Auscultation: clear to auscultation bilaterally Cardio: Rate: regular rate Rhythm: regular rhythm GI: Other: Abdomen is soft and nondistended. Mildly obese. She has mild tenderness palpation in suprapubic region and right lower quadrant of the abdomen. No masses appreciated no ventral hernias are noted. No guarding or generalized peritoneal signs. No acute surgical abdomen. Skin: General skin exam: normal color and no rashes or lesions noted Neuro: General: gait normal Speech: normal speech Motor exam (neuro): 5/5 motor strength present throughout Sensory Exam: normal sensation Extrem: General: normal to inspection Psych: Mental Status: mental status grossly normal Affect: normal affect Results Labs 04/07/24 07:31 04/07/24 08:52 Labs: Short CBC 04/07/24 Range/Units 07:31 WBC 14.0 H (4.5-10.0) K/mm3 Hgb 12.8 (12.0-15.0) g/dL Hct 37.6 (37.0-47.0) % Plt Count 345 (150-375) k/mm3 [facility] 04/07/24 04/07/24 07:31 08:52 Sodium 138 Potassium 3.8 Chloride 107 Carbon Dioxide 19 L BUN 12 Creatinine 0.81 0.80 Glucose 117 H Calcium 9.3 Liver Function 04/07/24 Range/Units 07:31 Total Bilirubin 1.2 (0.2-1.3) mg/dL AST 22 (14-36) U/L ALT 16 (6-35) U/L Alkaline Phosphatase 69 (38-126) U/L Albumin 4.6 (3.5-5.1) g/dL Urine 04/07/24 Range/Units 07:31 Urine Color Dark yellow (Yellow) Urine Appearance Cloudy H (Clear) Urine pH 5.5 (5.0-9.0) Ur Specific [place] 1.036 H (1.001-1.035) Urine Protein 1+ H (Negative) mg/dL Urine Glucose (UA) Negative (Negative) mg/dL Imaging Radiologist's impression: CT Scan Report Signed Patient: Georgette Reina : 1990 MR#: [id number] Age: 33 Acct:[id number] Loc: [facility] ADM Date: 04/07/24Attending Dr: Ordering Physician: Kimani Serra MD Date of Service: 04/07/24 Procedure(s): CT abdomen pelvis w con Accession Number(s): [id number] cc: Kimani Serra MD; Juan Jose, Onur DO~ EXAMINATION: CT abdomen pelvis w con DATE: 04/07/2024 08:58 INDICATION: Abdominal pain TECHNIQUE: Computed tomography (CT) of the abdomen and pelvis was performed with 100 mL Omnipaque-350 intravenous contrast. Automated exposure control and iterative reconstruction technique were employed. The dose-length product was 704.51 mGy-cm. COMPARISON: 09/22/2019 FINDINGS: Dependent atelectasis in bilateral lower lobes. Heart size is normal. No pericardial or pleural effusion. Subcentimeter low-attenuation cyst versus hemangioma in the left hepatic lobe. Mild focal hepatic steatosis along the ligamentum teres and the gallbladder fossa spleen, pancreas, bilateral adrenal glands and kidneys are normal. Bladder and anteverted uterus are normal. 2.6 m cystic lesion at the right adnexa. Normal appendix. No bowel obstruction. Complex ascites with surrounding stranding in the cul-de-sac and along the bilateral adnexa with mild stranding along the adjacent distal sigmoid colon. No organized abscess or free intraperitoneal gas. No pathologically enlarged abdominal or pelvic lymphadenopathy. Bones are unremarkable. IMPRESSION: 1. Complex ascites and surrounding stranding in the deep pelvis. Differential would include hemoperitoneum potentially related to ovarian cyst rupture 2.5 cm cystic lesion at the right adnexa or peritonitis which could relate either diverticulitis or pelvic inflammatory disease. Reviewed, dictated and finalized at location B. [place] [employer] TECHNICIAN Please be advised this is a medical document. It is intended for [id number] communication. It is written in medical language and may contain unfamiliar abbreviations or verbiage. Medical documents are intended to carry relevant information, facts as evident, and the clinical opinion of the practitioner at the time of the encounter. This report may have been done utilizing a voice recognition system. Attempts have been made to correct errors. However, there may be uncorrected grammatical, spelling, and recognition errors present. The file time of this note does not necessarily represent the time the patient was seen. Dictated By: Bernabe Glover MD 04/07/24 0900 Signed By: <Electronically signed by Bernabe Glover MD in [place]>
--- NOTE | 2024-04-07 14:56 | PC.NURSE ---
This patient, Georgette Reina, was admitted to [facility] Surg Room 303-01. Patient/family oriented to hospital policies and general routines including ID bracelet, bed and alarms, visiting hours, pain management, procedures, bathroom and other care routines, personal items, smoking policy, room service/diet, and visiting hours. Information on how to activate the Rapid Response Team has been discussed. Patient/Family are encouraged to report perceived risks to care and to ask questions if they do not understand what they are told or what they should do.
[2024-04-07] MEDS: MORPHINE SULFATE (*CRX) 2 MG/ML INJ IV PUSH (15:05)
[2024-04-07 15:14] LABS: INR 1.1; Prothrombin Time 15.1 Seconds (11.1-14.7)
[2024-04-07 15:16] LABS: Partial Thromboplastin Time 37.4 Seconds (22.3-36.8)
[2024-04-07 15:21] VITALS: BP 146/99; PULSE 106; RESP 16; TEMP 36.7; O2SAT 97
--- NOTE | 2024-04-07 15:23 | P.HP_ITS ---
H&P: HPI History of Present Illness Date/Time: 04/07/24 15:23 Chief Complaint: Pelvic pain Narrative: this patient is a 33-year-old female who presented to the emergency department with severe abdominal and pelvic pain. She was evaluated there. CT of the abdomen pelvis revealed a moderate-size Complex fluid collection in pelvis. patient is stable, afebrile. She does have some leukocytosis. A 2.5 cm ovarian cysts present on the CT scan. She has diffuse tenderness throughout the abdomen and pelvis exam. There is possibility a hemoperitoneum, ruptured ovarian cyst pelvic inflammatory disease, or appendicitis. Hemoperitoneum was favored with ruptured cyst. She is stable. We will continue other 12 hours of observation consider discharge in the morning. Repeat CBC in the a.m.. Review of Systems Review of Systems: All systems reviewed & are unremarkable except as noted in HPI and below Constitutional: Constitutional: Denies chills, Denies fatigue, Denies fever(s) and Denies weakness Eyes: Eyes: Denies blurry vision, Denies change in vision, Denies loss of peripheral vision, Denies loss of vision, Denies other visual disturbances and Denies eye pain ENT: Denies vertigo, Denies dizziness, Denies hearing loss, Denies mouth pain, Denies nasal obstruction, Denies neck mass and Denies neck pain Cardiovascular: Cardiovascular: Denies chest pain, Denies diaphoresis, Denies syncope, Denies leg edema and Denies dyspnea Respiratory: Respiratory: Denies chest congestion, Denies cough, Denies hemoptysis, Denies dyspnea and Denies wheezing Gastrointestinal: Gastrointestinal: Denies abdominal pain, Denies constipati on, Denies diarrhea, Denies nausea and Denies vomiting Genitourinary: Genitourinary: Denies hematuria, Denies change in libido, Denies nocturia, Denies genital lesions, Denies flank pain and Denies urinary urgency Musculoskeletal: Musculoskeletal: Denies abnormal gait, Denies back pain, Brendon es myalgias, Denies arthralgias, Denies joint swelling, Denies muscle weakness and Denies neck pain Integumentary/Breasts: Skin/Breast: Denies swelling, Denies breast pain, Denies breast mass, Denies dry skin, Denies nipple discharge, Denies unusual bruising and Denies jaundice Neurologic: Denies Neuro-related abnormal movements, Denies Abnormal speech present, Denies abnormal gait, Denies behavioral changes, Denies confusion, Denies vertigo, Denies dizziness, Denies syncope, Denies loss of vision, Denies memory loss, Denies convulsions and Denies weakness Psychiatric: Psychiatric: Denies abnormal sleep pattern, Denies behavioral changes, Denies change in libido, Denies confusion, Denies depression, Denies anhedonia and Denies memory loss Endocrine: Endocrine: Reports no additional endocrine complaints, Denies change in libido and Denies fatigue Hematologic/Lymphatic: Hematologic/Lymphatic: Reports no additional hematologic/lymphatic complaints Allergic/Immunologic: Allergic/Immunologic: Reports no additional allergic/immunologic complaints and Denies wheezing PMFSH Past Medical History Medical History No significant past medical history Surgical History Surgical History No significant past surgical history Social History Social History Smoking status: Former smoker Tobacco type: cigarettes Alcohol intake: never Substance use: never Substance use type: does not use Do You Feel Safe in your Home?: Yes Lack of Transportation: No Lack of Food: Never True Current Housing: I Have Housing Concerned About Future Housing: No Difficulty Paying Gas/Electric Bills: No Difficulty Paying for Meds: No Currently Unemployed: No Education: Bachelor's Degree Difficulty w/ Childcare or Family Care: No Gender identity (if verbalized by the patient): Female Spiritual care concerns: No Meds Home Medications and Allergies Home Medications ?Medication ?Instructions ?Recorded ?Confirmed ?Type cariprazine 3 mg capsule (Vraylar) 3 mg PO HS 04/07/24 04/07/24 History lamotrigine 100 mg tablet 100 mg PO Q12H 04/07/24 04/07/24 History sertraline 100 mg tablet 100 mg PO HS 04/07/24 04/07/24 History Allergies Allergy/AdvReac Type Severity Reaction Status Date / Time No Known Allergies Allergy Verified 04/07/24 07:19 Vital Signs Vital Signs - 24 hr 04/07/24 07:17 04/07/24 11:11 04/07/24 12:25 Temperature 98.7 F 97.5 F L Pulse Rate 122 H 98 85 Respiratory Rate 17 18 16 Blood Pressure 153/98 H 137/96 H 118/89 Pulse Oximetry 98 97 98 Oxygen Delivery Room Air 04/07/24 14:14 04/07/24 15:21 Temperature 98.1 F Pulse Rate 97 106 H Respiratory Rate 16 16 Blood Pressure 118/75 146/99 H Pulse Oximetry 98 97 Oxygen Delivery Exam Const: General: cooperative, healthy appearing, comfortable and no acute distress Orientation/consciousness: oriented to person, oriented to place and oriented to time HENMT: Head: normal to inspection Ears: external ears normal Face/Nose/Sinus: Normal external nose present and normal facial exam Face and sinus: normal facial exam Eyes: General: appearance normal, both eyes and all related structures Neck: Neck: normal visual inspection, trachea midline and supple Resp: Auscultation: clear to auscultation bilaterally, no crackles, no rales, no rhonchi and no wheezes Cardio: Rate: regular rate Rhythm: regular rhythm Heart sounds: no click, no murmurs and no rubs GI: GI Palp: Yes abdominal tenderness, No Soft to palpation, Yes Tenderness to palpation present (GI) and No Palpable mass present Auscultation: normal bowel sounds Skin: General skin exam: normal color and no rashes or lesions noted Neuro: General: oriented to person, oriented to place and oriented to time Extrem: General: normal to inspection, no joint enlargement, no clubbing, cyanosis or edema, no pedal edema and no calf tenderness Psych: Appearance: grossly normal Mental Status: mental status grossly normal Speech and movement: Normal speech and movement present H&P: Results Labs Labs: Short CBC 04/07/24 Range/Units 07:31 WBC 14.0 H (4.5-10.0) K/mm3 Hgb 12.8 (12.0-15.0) g/dL Hct 37.6 (37.0-47.0) % Plt Count 345 (150-375) k/mm3 BMP 04/07/24 04/07/24 07:31 08:52 Sodium 138 Potassium 3.8 Chloride 107 Carbon Dioxide 19 L BUN 12 Creatinine 0.81 0.80 Glucose 117 H Calcium 9.3 Liver Function 04/07/24 Range/Units 07:31 Total Bilirubin 1.2 (0.2-1.3) mg/dL AST 22 (14-36) U/L ALT 16 (6-35) U/L Alkaline Phosphatase 69 (38-126) U/L Albumin 4.6 (3.5-5.1) g/dL Urine 04/07/24 Range/Units 07:31 Urine Color Dark yellow (Yellow) Urine Appearance Cloudy H (Clear) Urine pH 5.5 (5.0-9.0) Ur Specific [place] 1.036 H (1.001-1.035) Urine Protein 1+ H (Negative) mg/dL Urine Glucose (UA) Negative (Negative) mg/dL Assessment and Plan Assessment and plan (1) Pelvic pain: Code(s): R10.2 - Pelvic and perineal pain Status: Acute (2) Hemoperitoneum: Code(s): K66.1 - Hemoperitoneum Status: Acute Assessment and Plan: this patient is a 33-year-old female who presented to the emergency department with severe abdominal and pelvic pain. She was evaluated there. CT of the abd omen pelvis revealed a moderate-size Complex fluid collection in pelvis. patient is stable, afebrile. She does have some leukocytosis. A 2.5 cm ovarian cysts present on the CT scan. She has diffuse tenderness throughout the abdomen and pelvis exam. There is possibility a hemoperitoneum, ruptured ovarian cyst pelvic inflammatory disease, or appendicitis. Hemoperitoneum was favored with ruptured cyst. She is stable. We will continue other 12 hours of observation consider discharge in the morning. Repeat CBC in the a.m.. (3) Ovarian cyst: Code(s): N83.209 - Unspecified ovarian cyst, unspecified side Status: Acute
[2024-04-07 15:24] LABS: Lactic Acid Reflex 0.8 mmol/L (0.7-2.0)
[2024-04-07 15:39] LABS: Procalcitonin 0.1 ng/mL
[2024-04-07] MEDS: IBUPROFEN IV 800 MG/200 ML 800 MG/200 ML BAG 400 MG IVPB (17:03)
[2024-04-07] MEDS: LACTATED RINGERS 1,000 ML 100 ML IV CONT (17:07)
[2024-04-07 21:13] VITALS: BP 128/86; PULSE 84; RESP 16; TEMP 36.6; O2SAT 100
[2024-04-07] MEDS: SERTRALINE HCL 50 MG TABLET 100 MG PO (22:55)
[2024-04-07] MEDS: ALPRAZolam (*CRX) 0.5 MG TABLET PO (22:55)
[2024-04-07] MEDS: lamoTRIgine 100 MG TABLET PO (22:55)
--- NOTE | 2024-04-07 23:25 | PHAR ---
HOME MED VERIFIED VRAYLAR 3MG ONE DAILY
[2024-04-07] MEDS: CARIPRAZINE 3 MG 3 EACH PO (23:44)
[2024-04-07] MEDS: CARIPRAZINE 3 MG 1 EACH XX (23:48)
[2024-04-08] MEDS: IBUPROFEN IV 800 MG/200 ML 800 MG/200 ML BAG 200 MG IVPB ×2 (00:18→08:31)
[2024-04-08] MEDS: metroNIDAZOLE 500 MG/ISO 100ML 500 MG/100 ML BAG 100 MG IVPB ×2 (02:45→11:23)
[2024-04-08] MEDS: ONDANSETRON INJ 4 MG/2 ML VIAL IV PUSH ×2 (05:20→10:10)
[2024-04-08] MEDS: HYDROcodone/acetaminophen (*CRX) 5-325 MG TABLET 1 TAB PO (05:21)
[2024-04-08 05:45] VITALS: BP 137/91; PULSE 92; RESP 16; TEMP 36.1; O2SAT 100
[2024-04-08 07:46] LABS: Basophils Percent Auto 0.3 % (0.2-1.2); Eosinophils Absolute Auto 0.1 K/mm3 (0-0.3); Eosinophils Percent Auto 1.1 % (0-4.4); Hematocrit 32.3 % (37.0-47.0); Hemoglobin 10.7 g/dL (12.0-15.0); Immature Granulocyte Absolute 0.01 K/mm3 (0.00-0.031); Immature Granulocyte Percent A 0.1 % (0-0.5); Lymphocytes Absolute Auto 1.57 K/mm3 (0.9-3.2); Lymphocytes Percent Auto 19.7 % (18.3-44.2); Mean Corpuscular HGB Conc 33.1 g/dl (32-36); Mean Corpuscular Hemoglobin 31.2 pg (26-34); Mean Corpuscular Volume 94.2 fl (80-100); Mean Platelet Volume 10.5 fl (7.4-10.4); Monocytes Absolute Auto 0.8 K/mm3 (0.1-0.6); Monocytes Percent Auto 10.3 % (2.6-8.5); Neutrophils Absolute Auto 5.5 K/mm3 (1.3-6.7); Neutrophils Percent Auto 68.5 % (45.5-73.1); Platelet Count Result 232 k/mm3 (150-375); Red Blood Count 3.43 M/mm3 (4.2-5.4)
[2024-04-08 08:02] LABS: Anion Gap 5 mmol/L (4-12); Blood Urea Nitrogen 8 mg/dL (7-17); Calcium 8.3 mg/dL (8.4-10.2); Carbon Dioxide 26 mmol/L (22-30); Chloride 106 mmol/L (98-107); Estimated CRCL calculation 114 ml/min; Estimated Glomerular Filt Rate > 60; Glucose 76 mg/dL (65-110); Potassium 3.6 mmol/L (3.4-5.0); Sodium 137 mmol/L (137-145)
[2024-04-08] MEDS: ACETAMINOPHEN 325 MG TABLET 650 MG PO (08:28)
[2024-04-08] MEDS: lamoTRIgine 100 MG TABLET PO (08:36)
--- NOTE | 2024-04-08 09:31 | WPDPN ---
Progress Note: A&P Assessment and Plan (1) Abdominal pain: Qualifiers: Abdominal location: generalized Qualified Code(s): R10.84 - Generalized abdominal pain Code(s): R10.9 - Unspecified abdominal pain Status: Acute Assessment and Plan: Patient's abdominal pain is improved today. No fever. White blood count is normal. Abdominal exam is pretty benign. I think her complex fluid collection or pelvis is most likely due to hemoperitoneum from ruptured ovarian cyst. I do not think she has sigmoid diverticulitis or other inflammatory process in the pelvis that requires further general surgery evaluation. She has tolerated regular diet and is doing okay from that standpoint. I think she be discharged home with follow-up with OBGYN as per their instructions. No need to follow general surgery after discharge. Subjective Date/time seen: 04/08/24 09:31 Interval history: Patient seems to be doing pretty well this morning. States her lower abdominal pain seems to wax and wane but is well controlled. She has been getting some IV ibuprofen overnight. She is tolerating regular diet. No fever tachycardia. White blood cell count this morning is 8000 and normal. Exam GI: Other: Abdomen is soft and nondistended. Minimal tenderness to palpation in lower quadrants. No guarding or rebound tenderness. Objective Data Vital Signs Vital Signs: Vital Signs - 24 hr 04/07/24 11:11 04/07/24 12:25 04/07/24 14:14 Temperature 36.4 C L Pulse Rate 98 85 97 Respiratory Rate 18 16 16 Blood Pressure 137/96 H 118/89 118/75 Pulse Oximetry 97 98 98 04/07/24 15:21 04/07/24 21:13 04/08/24 05:45 Temperature 36.7 C 36.6 C 36.1 C L Pulse Rate 106 H 84 92 Respiratory Rate 16 16 16 Blood Pressure 146/99 H 128/86 137/91 H Pulse Oximetry 97 100 100 Intake/Output Intake/Output: Intake & Output 04/05/24 04/06/24 04/07/24 04/08/24 23:59 23:59 23:59 23:59 Intake Total 2790 750 Balance 2790 750 Meds/Results Medications: Active Medications Generic Name Dose Route Start Last Admin Trade Name Freq PRN Reason Stop Dose Admin Acetaminophen 650 mg 04/07/24 12:49 04/08/24 08:28 Acetaminophen 325 Mg Tablet PO 650 mg Q4H PRN Administration Mild Pain (1-3) or Fever Hydrocodone Bitart/Acetaminophen 1 tab 04/07/24 13:52 04/08/24 05:21 Hydrocodone/Acetaminophen (*Crx) 5-325 Mg Tablet PO 1 tab Q6H PRN Administration Pain Rated 4-6 Ceftriaxone Sodium 1 gm in 50 mls @ 100 mls/hr 04/08/24 09:00 Rocephin 1 Gm/Ns 50 Ml IVPB Q24H NICOLA Doxycycline Hyclate 100 mg in 100 mls @ 100 mls/hr 04/07/24 21:00 04/07/24 21:07 Vibramycin 100 Mg/Ns 100 Ml IVPB 100 mls/hr Q12H NICOLA Administration Metronidazole 500 mg in 100 mls @ 100 mls/hr 04/07/24 18:00 04/08/24 02:45 Flagyl 500 Mg/Iso Soln 100 Ml IVPB 100 mls/hr Q8H NICOLA Administration Ibuprofen 800 mg in 200 mls @ 400 mls/hr 04/07/24 16:00 04/08/24 08:31 Caldolor 800 Mg/200 Ml IVPB 200 mls/hr Q8H NICOLA Administration Lamotrigine 100 mg 04/07/24 22:00 04/08/24 08:36 Lamotrigine 100 Mg Tablet PO 100 mg Q12HR NICOLA Administration Miscellaneous Information 1 each 04/07/24 00:01 04/07/24 23:48 Nonformulary Drug (Cariprazine [Vraylar] 3 Mg Capsule) Can Patient Use From Home? XX 05/07/24 00:00 1 each CLARIFY NICOLA Administration Morphine Sulfate 2 mg 04/07/24 13:52 04/07/24 15:05 Morphine Sulfate (*Crx) 2 Mg/Ml Inj IV PUSH 2 mg Q4H PRN Administration Pain Rated 7-10 Home Med ( 3 mg 04/07/24 23:30 04/07/24 23:44 Cariprazine [Vraylar PO 05/07/24 23:29 3 mg ] 3 Mg Capsule) HS NICOLA Administration Ondansetron HCl 4 mg 04/07/24 12:49 04/08/24 05:20 Ondansetron Inj 4 Mg/2 Ml Vial IV PUSH 4 mg Q4H PRN Administration Nausea Sertraline HCl 100 mg 04/07/24 22:00 04/07/24 22:55 Sertraline Hcl 50 Mg Tablet PO 100 mg HS NICOLA Administration Radiology Results: ITS Impressions Abdomen/Pelvis CT 04/07/24 09:00 IMPRESSION: 1. Complex ascites and surrounding stranding in the deep pelvis. Differential would include hemoperitoneum potentially related to ovarian cyst rupture 2.5 cm cystic lesion at the right adnexa or peritonitis which could relate either diverticulitis or pelvic inflammatory disease. Labs Labs: Laboratory Results - last 24 hr 04/07/24 04/07/24 04/08/24 10:21 14:53 06:34 WBC 8.0 RBC 3.43 L Hgb 10.7 L Hct 32.3 L MCV 94.2 MCH 31.2 MCHC 33.1 RDW 12.0 Plt Count 232 MPV 10.5 H Immature Gran % (Auto) 0.1 Neut % (Auto) 68.5 Lymph % (Auto) 19.7 [place] % (Auto) 10.3 H Eos % (Auto) 1.1 Baso % (Auto) 0.3 Lymph # (Auto) 1.57 [place] # (Auto) 0.8 H Eos # (Auto) 0.1 Baso # (Auto) 0.0 Abs Immat Gran (auto) 0.01 Absolute Neuts (auto) 5.5 Absolute Nucleated RBC 0.000 Nucleated RBC % 0.0 PT 15.1 H INR 1.1 APTT 37.4 H Sodium 137 Potassium 3.6 Chloride 106 Carbon Dioxide 26 Anion Gap 5 BUN 8 Creatinine 0.64 L Estim Creat Clear Calc 114 Estimated GFR > 60 Glucose 76 Lactic Acid 0.8 Calcium 8.3 L Procalcitonin 0.1 C. trachomatis (PCR) Not detected N. gonorrhoeae (PCR) Not detected T. vaginalis (PCR) Not detected
--- NOTE | 2024-04-08 09:40 | PM.DS ---
DS: Admitting Diagnosis Discharge Date 04/08 Admitting Diagnosis pelvic pain DS: Discharge Diagnosis Discharge Diagnosis (1) Sepsis: Qualifiers: Sepsis acute organ dysfunction status: without acute organ dysfunction Sepsis type: sepsis due to unspecified organism Qualified Code(s): A41.9 - Sepsis, unspecified organism Code(s): A41.9 - Sepsis, unspecified organism Status: Acute Assessment and Plan: - meets SIRS criteria: HR, WBC - lactic acid and procalcitonin ordered - 30 mL/kg bolus ordered - suspected source: pelvic process, possible UTI - started on ceftriaxone, doxycycline, metronidazole - blood cultures drawn on 04/07 (2) Abdominal pain: Qualifiers: Abdominal location: generalized Qualified Code(s): R10.84 - Generalized abdominal pain Code(s): R10.9 - Unspecified abdominal pain Status: Acute Assessment and Plan: - CT abd/pelvis: Complex ascites and surrounding stranding in the deep pelvis. Differential would include hemoperitoneum potentially related to ovarian cyst rupture 2.5 cm cystic lesion at the right adnexa or peritonitis which could relate either diverticulitis or pelvic inflammatory disease. - started on ceftriaxone, doxycycline, and Flagyl on 04/07 - analgesics and antipyretics p.r.n. - general surgery consulted, awaiting formal recs - Senior Electrical Controls Engineer consulted, awaiting formal recs - add PT/PTT/INR Differential includes ruptured ovarian cyst, diverticulitis, and PID. Patient's UA suspicious for UTI, see below. STD testing including chlamydia, gonorrhea, and Trichomonas negative. test negative. (3) UTI (urinary tract infection): Qualifiers: Hematuria presence: without hematuria Urinary tract infection type: acute cystitis Qualified Code(s): N30.00 - Acute cystitis without hematuria Code(s): N39.0 - Urinary tract infection, site not specified Status: Suspected Assessment and Plan: - UA: cloudy, sp gravity 1.036, 4+ protein, 2+ ketones, 1+ blood, 1+ bilirubin, 2+ leuks, 6-10 RBC, 21-50 WBC, moderate epithelial cells, 3+ bacteria - UC pending, update on 04/07 - no previous micro available for review - started on Ceftriaxone on 04/07 Plan Diet: NPO GI Prophylaxis: Not currently indicated DVT Prophylaxis: Not currently indicated Lines: Peripheral Code Status: Full code DS: Summary Hospital Course Hospital Course: 33 y/o F presents here with abdominal pain with no significant past medical history. The patient presents here from home with abdominal pain. She reports the abdominal pain initially began 2 days ago on 04/05. She describes the abdominal pain as lower abdominal but is now diffuse, radiating into her right shoulder, intermittent, episode lengths very, aggravated by bending/coughing/laughing, and no alleviating factors. Patient was taking 1G of Tylenol 3 times per day without relief. Pain is accompanied by diarrhea, nausea without vomiting, chills, and cold sweats. Denies accompanying fever or shortness of breath. Patient denies any recent blunt abdominal trauma, or recent . LBM was yesterday. Patient reports she has had 2 episodes of diarrhea in the last 24 hours. Patient also attempted bowel rest without relief. Initial VS at presentation: 98.7? F, HR 122, RR 17, 153/98, and 98% on RA. ED workup showed: WBC 14.0, no anemia, creatinine 0.8 and GFR >60, glucose 117, and UA equivocal for infection (may be contaminant), test negative, chlamydia/gonorrhea/Trichomonas negative. CT of the abdomen/pelvis showed complex ascites and surrounding stranding in the deep pelvis. # pelvic pain was seen per OBGYN CT of the abdomen pelvis revealed a moderate-size Complex fluid collection in pelvis. patient is stable, afebrile. She does have some leukocytosis. A 2.5 cm ovarian cysts present on the CT scan. She has diffuse tenderness throughout the abdomen and pelvis exam. There is possibility a hemoperitoneum, ruptured ovarian cyst pelvic inflammatory disease, or appendicitis. Hemoperitoneum was favored with ruptured cyst. She is stable. We will continue other 12 hours of observation consider discharge in the morning. Repeat CBC in the a.m.. WBC improved this am- 14->8 pain is improved F/u: image cyst in the office in about 6 weeks. Given instructions to call with any worsening pain or other gynecologic problems, denies nausea, vomiting, fever, chills. # abd pain general surgery was consulted NOtes reviewed: Patient's abdominal pain is improved today. No fever. White blood count is normal. Abdominal exam is pretty benign. I think her complex fluid collection or pelvis is most likely due to hemoperitoneum from ruptured ovarian cyst. I do not think she has sigmoid diverticulitis or other inflammatory process in the pelvis that requires further general surgery evaluation. She has tolerated regular diet and is doing okay from that standpoint. I think she be discharged home with follow-up with OBGYN as per their instructions. No need to follow general surgery after discharge OBGYN and surgery cleared pt for discharge with no specific RX. NO f/u is needed with surgery and OBGYN- image cyst in the office in about 6 weeks. Status at Discharge Functional status at discharge: independent ambulation Overall status at discharge: patient is back to baseline Time Spent with Patient Time attestation: Total time spent providing and/or coordinating discharge services: Time spent: Greater than 30 minutes Exam Narrative: diffuse abdominal tenderness- better today Const: General: comfortable and no acute distress Other: , female common nontoxic appearance HENMT: Face/Nose/Sinus: Normal nares present Mouth: Yes moist mucous membranes Eyes: General: appearance normal, both eyes and all related structures Sclera: sclerae normal Pupils: Equal, round and reactive pupils present EOM: EOMs intact bilaterally Resp: Effort & Inspection: normal respiratory effort Auscultation: clear to auscultation bilaterally Cardio: Rate: regular rate Rhythm: regular rhythm Other: S1-S2 present without murmur, rub, ectopy GI: Other: Abdomen soft, nondistended. Generalized tenderness, more severe in the umbilical region and suprapubic/lower abdomen. Skin: General skin exam: normal color and no rashes or lesions noted Wounds: no wounds Neuro: General: gait normal Cranial nerves: Yes Equal, round and reactive pupils present Speech: normal speech Motor exam (neuro): 5/5 motor strength present throughout Sensory Exam: normal sensation Other: A&O x4 Extrem: General: normal to inspection Psych: Mental Status: mental status grossly normal Affect: normal affect Other: Good insight judgment, pleasant DS: Data Data Completed and Pending Labs on day of discharge: Labs from last 24 hours 04/08/24 04/07/24 04/07/24 06:34 14:53 10:21 WBC 8.0 RBC 3.43 L Hgb 10.7 L Hct 32.3 L MCV 94.2 MCH 31.2 MCHC 33.1 RDW 12.0 Plt Count 232 MPV 10.5 H Immature Gran % (Auto) 0.1 Neut % (Auto) 68.5 Lymph % (Auto) 19.7 [place] % (Auto) 10.3 H Eos % (Auto) 1.1 Baso % (Auto) 0.3 Lymph # (Auto) 1.57 [place] # (Auto) 0.8 H Eos # (Auto) 0.1 Baso # (Auto) 0.0 Abs Immat Gran (auto) 0.01 Absolute Neuts (auto) 5.5 Absolute Nucleated RBC 0.000 Nucleated RBC % 0.0 PT 15.1 H INR 1.1 APTT 37.4 H Sodium 137 Potassium 3.6 Chloride 106 Carbon Dioxide 26 Anion Gap 5 BUN 8 Creatinine 0.64 L Estim Creat Clear Calc 114 Estimated GFR > 60 Glucose 76 Hemoglobin A1c Pending Lactic Acid 0.8 Calcium 8.3 L Procalcitonin 0.1 C. trachomatis (PCR) Not detected N. gonorrhoeae (PCR) Not detected T. vaginalis (PCR) Not detected Discharge Plan Discharge Attending physician on discharge: Enedelia Pimentel Consulting providers: Derik Fulton; Chente Joe Discharging Clinician: Nicole Blackman Patient Disposition: Home, Self-Care Activity: may shower Diet: as tolerated and regular Discharge Instructions: Patient may be discharged from a general surgery standpoint at discretion of Dr. Fulton. No need to follow-up with General surgery after discharge. Regular diet home is fine from general surgery standpoint. Discharge medications as per Dr. Fulton. Dr Fulton: follow-up with image cyst in the office in about 6 weeks. Call with any worsening pain or other gynecologic problems, denies nausea, vomiting, fever, chills. Patient Instructions: Antibiotic Form Patient Language: Mauritian Stand Alone Forms: General Discharge Information Follow-up/Referrals: Derik Fulton MD [Physician] - 6 Weeks Juan Jose,DO Onur [Primary Care Provider] - 2 Weeks Discharge Medications: New ondansetron HCl 4 mg tablet 4 mg PO DAILY PRN (Reason: nausea and vomiting) 5 Days Qty: 10 0RF Continued lamotrigine 100 mg tablet 100 mg PO Q12H sertraline 100 mg tablet 100 mg PO HS Vraylar 3 mg capsule 3 mg PO HS Date of admission: 04/07/24 12:49 Primary Care Provider: Juan Jose,Onur Admitting Provider: Mervin Serna Attending physician on admission: Mervin Serna Condition: Stable Hospitalist MIPS Heart Failure (Exclusion) Patient has history of Heart Transplant or Left Ventricular Assistive Device?: No IF YES, STOP HERE Heart Failure (Qualifier) Patient has current or prior documentation of LVEF less than or equal to 40%, or mod/servere depressed LVSF?: No IF NO, STOP HERE
[2024-04-08 10:02] LABS: Hemoglobin A1C 4.8 % (<5.7)
[2024-04-08] MEDS: DOXYCYCLINE 100 MG/NS 100 ML 100 MG/100 ML BAG IVPB (10:27)
--- NOTE | 2024-04-08 11:18 | P.PNOB_ITS ---
PRODUCTION CONTROL EXPERT - A/P Assessment and plan (1) Hemoperitoneum: Code(s): K66.1 - Hemoperitoneum Status: Acute Plan 04/08/24 11:18 pain is improving, discussed follow-up, to image cyst in the office in about 6 weeks. Given instructions to call with any worsening pain or other gynecologic problems, denies nausea, vomiting, fever, chills. Denies any abnormal vaginal bleeding or vaginal discharge. Time Spent With Patient Time: Total time spent is greater than 50% in coordination of care (as documented) at patient's floor/unit and/or counseling patient: Time with patient: less than 15 minutes PRODUCTION CONTROL EXPERT- PN:Subj Post-Op Subjective Date/time seen: 04/08/24 11:18 pain is improving, discussed follow-up, to image cyst in the office in about 6 weeks. Given instructions to call with any worsening pain or other gynecologic problems, denies nausea, vomiting, fever, chills. Denies any abnormal vaginal bleeding or vaginal discharge. Interval history: Patient seems to be doing pretty well this morning. States her lower abdominal pain seems to wax and wane but is well controlled. She has been getting some IV ibuprofen overnight. She is tolerating regular diet. No fever tachycardia. White blood cell count this morning is 8000 and normal. PRODUCTION CONTROL EXPERT - PN: Obj Data Vital Signs Vital Signs: Vital Signs - 24 hr 04/07/24 12:25 04/07/24 14:14 04/07/24 15:21 Temperature 98.1 F Pulse Rate 85 97 106 H Respiratory Rate 16 16 16 Blood Pressure 118/89 118/75 146/99 H Pulse Oximetry 98 98 97 04/07/24 21:13 04/08/24 05:45 Temperature 97.8 F 97.0 F L Pulse Rate 84 92 Respiratory Rate 16 16 Blood Pressure 128/86 137/91 H Pulse Oximetry 100 100 Intake/Output Intake/Output: Intake & Output 04/05/24 04/06/24 04/07/24 04/08/24 23:59 23:59 23:59 23:59 Intake Total 2890 1000 Balance 2890 1000 Meds/Results Medications: Active Medications Generic Name Dose Route Start Last Admin Trade Name Freq PRN Reason Stop Dose Admin Acetaminophen 650 mg 04/07/24 12:49 04/08/24 08:28 Acetaminophen 325 Mg Tablet PO 650 mg Q4H PRN Administration Mild Pain (1-3) or Fever Hydrocodone Bitart/Acetaminophen 1 tab 04/07/24 13:52 04/08/24 05:21 Hydrocodone/Acetaminophen (*Crx) 5-325 Mg Tablet PO 1 tab Q6H PRN Administration Pain Rated 4-6 Ceftriaxone Sodium 1 gm in 50 mls @ 100 mls/hr 04/08/24 09:00 04/08/24 09:48 Rocephin 1 Gm/Ns 50 Ml IVPB 100 mls/hr Q24H NICOLA Administration Doxycycline Hyclate 100 mg in 100 mls @ 100 mls/hr 04/07/24 21:00 04/08/24 10:27 Vibramycin 100 Mg/Ns 100 Ml IVPB 100 mls/hr Q12H NICOLA Administration Metronidazole 500 mg in 100 mls @ 100 mls/hr 04/07/24 18:00 04/08/24 02:45 Flagyl 500 Mg/Iso Soln 100 Ml IVPB 100 mls/hr Q8H NICOLA Administration Ibuprofen 800 mg in 200 mls @ 400 mls/hr 04/07/24 16:00 04/08/24 08:31 Caldolor 800 Mg/200 Ml IVPB 200 mls/hr Q8H NICOLA Administration Lamotrigine 100 mg 04/07/24 22:00 04/08/24 08:36 Lamotrigine 100 Mg Tablet PO 100 mg Q12HR NICOLA Administration Miscellaneous Information 1 each 04/07/24 00:01 04/07/24 23:48 Nonformulary Drug (Cariprazine [Vraylar] 3 Mg Capsule) Can Patient Use From Home? XX 05/07/24 00:00 1 each CLARIFY NICOLA Administration Morphine Sulfate 2 mg 04/07/24 13:52 04/07/24 15:05 Morphine Sulfate (*Crx) 2 Mg/Ml Inj IV PUSH 2 mg Q4H PRN Administration Pain Rated 7-10 Home Med ( 3 mg 04/07/24 23:30 04/07/24 23:44 Cariprazine [Vraylar PO 05/07/24 23:29 3 mg ] 3 Mg Capsule) HS NICOLA Administration Ondansetron HCl 4 mg 04/07/24 12:49 04/08/24 10:10 Ondansetron Inj 4 Mg/2 Ml Vial IV PUSH 4 mg Q4H PRN Administration Nausea Sertraline HCl 100 mg 04/07/24 22:00 04/07/24 22:55 Sertraline Hcl 50 Mg Tablet PO 100 mg HS NICOLA Administration Radiology Results: ITS Impressions Abdomen/Pelvis CT 04/07/24 09:00 IMPRESSION: 1. Complex ascites and surrounding stranding in the deep pelvis. Differential would include hemoperitoneum potentially related to ovarian cyst rupture 2.5 cm cystic lesion at the right adnexa or peritonitis which could relate either diverticulitis or pelvic inflammatory disease. Labs 04/08/24 06:34 04/08/24 06:34 Labs: Laboratory Results - last 24 hr 04/07/24 04/07/24 04/08/24 10:21 14:53 06:34 WBC 8.0 RBC 3.43 L Hgb 10.7 L Hct 32.3 L MCV 94.2 MCH 31.2 MCHC 33.1 RDW 12.0 Plt Count 232 MPV 10.5 H Immature Gran % (Auto) 0.1 Neut % (Auto) 68.5 Lymph % (Auto) 19.7 Tompkins % (Auto) 10.3 H Eos % (Auto) 1.1 Baso % (Auto) 0.3 Lymph # (Auto) 1.57 Tompkins # (Auto) 0.8 H Eos # (Auto) 0.1 Baso # (Auto) 0.0 Abs Immat Gran (auto) 0.01 Absolute Neuts (auto) 5.5 Absolute Nucleated RBC 0.000 Nucleated RBC % 0.0 PT 15.1 H INR 1.1 APTT 37.4 H Sodium 137 Potassium 3.6 Chloride 106 Carbon Dioxide 26 Anion Gap 5 BUN 8 Creatinine 0.64 L Estim Creat Clear Calc 114 Estimated GFR > 60 Glucose 76 Hemoglobin A1c 4.8 Lactic Acid 0.8 Calcium 8.3 L Procalcitonin 0.1 C. trachomatis (PCR) Not detected N. gonorrhoeae (PCR) Not detected T. vaginalis (PCR) Not detected
--- OUTSIDE RECORDS SUMMARY | 2024-04-13 05:39 | XMS_ITS ---
Author Organization [facility] Address [address] [facility] [[email or web address] [address] [place] [address] Care Team Providers Care Sealer Dry Cell Name Role Phone Onur Ingram DO Primary Care Provider Arely Renny Comer Unavailable [phone] REASON FOR VISIT Nausea Medications Medication SIG (Take, Route, Fr equency, Duration) Notes Start Date End Date Status Ondansetron HCl 8 MG 1 tablet as needed Orally twice a day for 14 days 02/29/2024 Active Social History Sex Assigned At : Social History Observation Description Sex Assigned At Female Encounters Encounter Location Date Provider Diagnosis [facility] [address] [facility] [[email or web address]] [address] [place] [address] 02/28/2024 Renny Verdin Nausea R11.0 Assessments Encounter Date Diagnosis (ICD Code) Assessment Notes Treatment Notes Treatment Clinical Notes Section Notes 02/28/2024 Nausea (ICD-10 - R11.0) Plan Of Treatment Medication Medication Name Sig Start Date Stop Date Notes Ondansetron HCl 8 MG 1 tablet as needed Orally twice a day for 14 days 02/29/2024 Next Appt Details Provider Name:Renny patricia, 04/17/2024 10:15:00 AM, [address], [place], [address], Progress Notes * JOSSE ATKINS ANNDOB:[birth year] (33 yo F)Acc No.[id number]:02/28/2024 Patient:?JOSSE ATKINS :1990???Age:33 Y???Sex:Female Address:[facility] [address] [place], [address] * Refills? Start Ondansetron HCl Tablet, 8 MG, Orally, 28 Tablet, 1 tablet as needed, twice a day, 14 days, Refills=0 Subjective: * Chief Complaints: * ???Nausea * Medical History:? * Surgical History:? * Hospitalization/Major Diagno stic Procedure:? * Medications:? Objective: * Vitals:? * Physical Examination:? Assessment: * Assessment: 1.?Nausea - R11.0 (Primary)? ?? Plan: * Treatment: * Procedure Codes:? * true * Date:? 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
--- OUTSIDE RECORDS SUMMARY | 2024-04-13 05:40 | XMS_ITS ---
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 Name Role Phone Onur Ingram DO Primary Care Provider Arely vailaAneesh Angulo Unavailable [phone] Allergies No Known Allergies Results Component Value Reference Range Notes Test Reviewed date:02/28/2024 10:20:18 AM Interpretation: Performing Lab: Notes/Report: Test urine n 0 - 0 UDT Reviewed date:02/28/2024 10:20:18 AM Interpretation: Performing Lab: Notes/Report: THC p 0 - 50 ng/ml Cocaine n 0 - 300 ng/ml Amphetamine n 0 - 1000 ng/ml Buprenorphine (BUP) n 0 - 10 ng/ml Secobarbital (Bar) n 0 - 300 ng/ml Oxazepam (BZO) n 0 - 300 ng/ml 8-grlyrhiupf-2,7-oizbyxfh-7,3-diphenylpyrrolidine (VANDANA P) n 0 - 300 ng/ml Methamphetamine (MET) n 0 - 1000 ng/ml Methylenedioxymethamphetamine (MDMA) n 0 - 500 ng/ml Morphine (MOP 300/MSQ9711) n 0 - 300 ng/ml Methadone (MTD) n 0 - 300 ng/ml Phencyclidine (PCP) n 0 - 25 ng/ml Propoxyphene (PPX) n 0 - 300 ng/ml Nortriptyline (TCA) n 0 - 1000 ng/ml Oxycodone n 0 - 300 ng/ml REASON FOR VISIT returning pt Medications Medication SIG (Take, Route, Fr equency, Duration) Notes Start Date End Date Status Vraylar 3 MG 1 capsule Oral Once a day for 90 days 01/11/2024 Active Sertraline HCl 100 MG 1 tablet Oral Once a day for 30 days 02/21/2024 Active lamoTRIgine 100 MG 1 tablet Orally twic e a day for 90 days 01/11/2024 Active Sertraline HCl 25 MG 1 tablet daily x 7 days then 2 tablets daily x 7 days Orally Once a day for 14 days 02/21/2024 Active Social History Tobacco Use: Social History Observation Description Date Details (start date - stop date) Current some da y smoker NA - NA Sex Assigned At : Social History Observation Description Sex Assigned At Female Tobacco Control (Standard) Question Answer Notes Tobacco use: Current some day smoker AUDIT-C (Standard) Question Answer Notes Interpretation Positive Did you have a drink contain ing alcohol in the past year? Yes How often did you have six o r more drinks on one occasion in the past year? Less than monthly (1 point) How many drinks did you have on a typical day when you were drinking in the past year? 3 or 4 drinks (1 point) How often did you have a dri nk containing alcohol in the past year? Monthly or less (1 point) Problems Problem Type SNOMED Code ICD Code Onset Dates Problem Status W/U Status Risk Notes Problem Generalized anxiety disorder (03479940) Generalized anxiety disorder (F41.1) Active confirmed Problem [id number] Mixed obsessional thoughts and acts (F42.2) Active confirmed Problem [id number] Depressed bipolar disorder (F31.9) Active confirmed Vital Signs Blood pressure systolic 125 mm Hg 02/21/20 24 Blood pressure diastolic 87 mm Hg 024 Heart Rate 87 /min 02/21/2024 Height 64.00 in 02/21/2024 Weight 200 lbs 02/21/2024 BMI 34.33 kg/m2 02/21/2024 Height-cm 162.56 cm 02/21/2024 Weight-kg 90.72 kg 02/21/2024 Encounters Encounter Location Date Provider Diagnosis [facility] [address] [address] 02/21/2024 Aneesh Verdin Generalized anxiety disorder F41.1 ; Mixed obsessional thoughts and acts F42.2 and Depressed bipolar disorder F31.9 Assessments Encounter Date Diagnosis (ICD Code) Assessment Notes Treatment Notes Treatment Clinical Notes Section Notes 02/21/2024 Generalized anxiety disorder (ICD-10 - F41.1) alprazolam 0.5mg daily prn 1. Bipolar Disorder: - Continue lamotrigine 100 mg twice a day - Continue Vraylar 3 mg daily Plan: - Monitor for any manic or depressive episodes 2. Depression: - Start sertraline 25 mg daily for one week, then increase to 50 mg daily for one week, and finally to 100 mg daily Plan: - Follow up in one month to assess response to sertraline - Encourage patient to discuss depressive symptoms with counselor 3. Obsessive-Compu lsive Disorder (OCD) and Intrusive Thoughts: - Sertraline titration as mentioned above for depression, as it may also help with OCD symptoms Plan: - Encourage patient to discuss OCD and intrusive thoughts with counselor 4. Anxiety: - Continue as needed use of alprazolam 0.5 mg for anxiety episodes Plan: - Encourage patient to discuss anxiety management strategies with counselor 5. Insomnia: Plan: - Encourage patient to maintain a regular sleep schedule - Monitor sleep patterns and discuss any concerns with the counselor 6. Work Stress: Plan: - Encourage patient to consider reducing work hours or finding a less stressful job if financially feasible - Encourage self-care, including taking lunch breaks and finishing work on time - Discuss work stress management strategies with counselor 7. Medication adherence: Plan: - Reinforce the importance of taking medications as prescribed - Monitor patient's adherence to the medication regimen during follow-up visits Follow-up in one month to assess the patient's response to sertraline and overall mental health status. If the patient experiences any issues with sertraline or worsening of symptoms, they should contact the clinic immediately. 02/21/2024 Mixed obsessional thoughts and acts (ICD-10 - F42.2) 1. Bipolar Disorder: - Continue lamotrigine 100 mg twice a day - Continue Vraylar 3 mg daily Plan: - Monitor for any manic or depressive episodes 2. Depression: - Start sertraline 25 mg daily for one week, then increase to 50 mg daily for one week, and finally to 100 mg daily Plan: - Follow up in one month to assess response to sertraline - Encourage patient to discuss depressive symptoms with counselor 3. Obsessive-Compu lsive Disorder (OCD) and Intrusive Thoughts: - Sertraline titration as mentioned above for depression, as it may also help with OCD symptoms Plan: - Encourage patient to discuss OCD and intrusive thoughts with counselor 4. Anxiety: - Continue as needed use of alprazolam 0.5 mg for anxiety episodes Plan: - Encourage patient to discuss anxiety management strategies with counselor 5. Insomnia: Plan: - Encourage patient to maintain a regular sleep schedule - Monitor sleep patterns and discuss any concerns with the counselor 6. Work Stress: Plan: - Encourage patient to consider reducing work hours or finding a less stressful job if financially feasible - Encourage self-care, including taking lunch breaks and finishing work on time - Discuss work stress management strategies with counselor 7. Medication adherence: Plan: - Reinforce the importance of taking medications as prescribed - Monitor patient's adherence to the medication regimen during follow-up visits Follow-up in one month to assess the patient's response to sertraline and overall mental health status. If the patient experiences any issues with sertraline or worsening of symptoms, they should contact the clinic immediately. 02/21/2024 Depressed bipolar disorder (ICD-10 - F31.9) 1. Bipolar Disorder: - Continue lamotrigine 100 mg twice a day - Continue Vraylar 3 mg daily Plan: - Monitor for any manic or depressive episodes 2. Depression: - Start sertraline 25 mg daily for one week, then increase to 50 mg daily for one week, and finally to 100 mg daily Plan: - Follow up in one month to assess response to sertraline - Encourage patient to discuss depressive symptoms with counselor 3. Obsessive-Compu lsive Disorder (OCD) and Intrusive Thoughts: - Sertraline titration as mentioned above for depression, as it may also help with OCD symptoms Plan: - Encourage patient to discuss OCD and intrusive thoughts with counselor 4. Anxiety: - Continue as needed use of alprazolam 0.5 mg for anxiety episodes Plan: - Encourage patient to discuss anxiety management strategies with counselor 5. Insomnia: Plan: - Encourage patient to maintain a regular sleep schedule - Monitor sleep patterns and discuss any concerns with the counselor 6. Work Stress: Plan: - Encourage patient to consider reducing work hours or finding a less stressful job if financially feasible - Encourage self-care, including taking lunch breaks and finishing work on time - Discuss work stress management strategies with counselor 7. Medication adherence: Plan: - Reinforce the importance of taking medications as prescribed - Monitor patient's adherence to the medication regimen during follow-up visits Follow-up in one month to assess the patient's response to sertraline and overall mental health status. If the patient experiences any issues with sertraline or worsening of symptoms, they should contact the clinic immediately. Plan Of Treatment Medication Medication Name Sig Start Date Stop Date Notes Vraylar 3 MG 1 capsule Oral Once a day for 90 days 01/11/2024 Sertraline HCl 100 MG 1 tablet Oral Once a day for 30 days 02/21/2024 lamoTRIgine 100 MG 1 tablet Orally twic e a day for 90 days 01/11/2024 Sertraline HCl 25 MG 1 tablet daily x 7 days then 2 tablets daily x 7 days Orally Once a day for 14 days 02/21/2024 Treatment Notes Assessment Notes Generalized anxiety disorder alprazolam 0.5mg daily prn Next Appt Details Follow Up: 4 Weeks, Reason: f/u ocd Provider Name:Aneesh patricia, 04/17/2024 10:15:00 AM, [address] [place] [address] [address], [facility] [address], [place], [address], Progress Notes * MILLY JOSSE ANNDOB:[birth year] (33 yo F)Acc No.[id number]:02/21/2024 Patient:?JOSSE ATKINS FRANCO Provider:?ANEESH VERDIN PMHNP :1990???Age:33 Y???Sex:Female D ate:02/21/2024 [address] [facility] Pcp:Onur Ingram DO Subjective: * Chief Complaints: * ???Returning pt * HPI: ???Depression Screening:? Chief complaint- Depressive episode, intrusive thoughts. the note is transcribed using speech recognition software. It is a reflection of a visit with the patient. It might have some inaccuracy, including medication names and transcribing errors, though efforts have been made to correct them. The patient reports adherence to her prescribed medications, lamotrigine 100 mg twice daily and Vraylar 3 mg daily. She is experiencing a significant depressive episode characterized by lack of motivation and persistent intrusive thoughts, including suicidal ideation. These thoughts occur even when she feels fine and tend to intensify during stressful periods. She also mentions inappropriate intrusive thoughts, such as sexual thoughts and thoughts of driving into oncoming traffic. While denying recent manic symptoms, she recalls feeling restless over the summer without sleep disturbances. Her sleep pattern has been irregular, and she is attempting to establish a more consistent sleep schedule. The patient confirms she has not missed any medication doses prior to the onset of the current depressive episode. The patient describes her work environment as highly stressful, with long hours and multiple managers assigning tasks. She is considering reducing her work hours or seeking alternative employment to alleviate stress. Her medication history includes Prozac at age 14, which led to suicidal thoughts, and Lexapro, which negatively impacted her sex drive. She has not previously tried Zoloft. The patient is not on control and reports improved menstrual cycles recently. ?ANNAMARIA-7 (2018 Edition)?Feeling nervous, anxious, or on edge?Several days,?Not being able to stop or control worrying?Nearly every day,?Worrying too much about different things?Nearly every day,?Trouble relaxing?Nearly every day,?Being so restless that it is hard to sit still?Not at all,?Becoming easily annoyed or irritable?Nearly every day,?Feeling afraid as if something awful might happen?Nearly every day,?Total ANNAMARIA-7 Score?16,?If you checked any problems, how difficult have they made it for you to do your work, take care of things at home, or get along with other people? Extremely difficult,?Interpretation of Total?(15 and over) Severe.?Murdock-Suicide Severity Rating Scale:?Suicide Risk (CSRS-screener)?in the past one month Have you wished you were or wished you could go to sleep and not wake up??Yes,?in the past one month Have you actually had any thoughts of killing yourself??Yes.?Depression screening:?PHQ-9?Little interest or pleasure in doing things?Several days,?Feeling down, depressed, or hopeless?Several days,?Trouble falling or staying asleep, or sleeping too much?Several days,?Feeling tired or having little energy?Several days,?Poor appetite or overeating?Several days,?Feeling bad about yourself or that you are a failure, or have let yourself or your family down?Several days,?Trouble concentrating on things, such as reading the newspaper or watching television?Several days,?Moving or speaking so slowly that other people could have noticed; or the opposite, being so fidgety or restless that you have been moving around a lot more than usual?Not at all,?Thoughts that you would be better off or of hurting yourself in some way?Several days (Consider Suicide Assessment Risk),?Total Score?8,?Interpretation?Mild Depression.?Intervention?Depression Screening Findings?Positve,?Follow-Up for Depression?Mental health treatment assessment, Patient follow-up to return when and if necessary,?Suicide Risk Assessment Performed? ,?Additional Evaluation for Depression?Psychiatric interview and evaluation,?Name of the standardized tool used for adult depression screening:?Patient Health Questionnaire (PHQ-9).?Past Psychiatric Hospitalizations:?Previous psychiatric hospitalizations?Previous Psychiatric Hospitalization?No.?Past History of Suicidal attempt?Have you ever attempted suicide in the past?No.?History of Presenting Problem:?Anxiety?intrusive thoughts of even when not depressed, intrusive? inappropriate sexual thoughts, intrusive thoughts like don't drive care into traffic. Feels upset by these., Aggravated by: work stress.?Depression?Depression episode started a few weeks ago, feels it is improving- poor appetite, sleeping too much, crying a lot, suicidal thoughts. No plan or intent on suicide but feels it would be easier than keep trying to get better.?.?Obsessive thoughts?intrusive thoughts.?Past Medication history:? prozac- age 14 suicidal ideation, lexapro- killed sex drive, abilify- side effects. * Medical History:? * Surgical History:?Denies Pas t Surgical History * Hospitalization/Major Diagno stic Procedure:?Denies Past Hospitalization * Family History:?Father: Anxi ety Disorder.?Maternal Aunt: None.?Paternal Aunt: None.?Paternal Uncle: None.?Mother: Anxiety Disorder.?Paternal Grandfather: None.?Paternal Grandmother: Anxiety Disorder.?Maternal Grandfather: None.?Maternal Grandmother: None.?Brother: None.?Sister: None.?Son: None.?Daughter: None.? * Social History:?Tobacco Use:?Tobacco Control (Standard)?Tobacco use:?Current some day smoker.?Migrated Social History:?Migrated Social History: Alcohol Intake: Occasional 06/17/2020,Tobacco Years: Former smoker 06/17/2020,Smoking Status: 6 12/08/2022. ???Drug/Alcohol:?Drugs?Have you used drugs other than those for medical reasons in the past 12 months??No.?AUDIT-C (Standard)?Did you have a drink containing alcohol in the past year??Yes,?How often did you have six or more drinks on one occasion in the past year??Less than monthly (1 point),?How many drinks did you have on a typical day when you were drinking in the past year??3 or 4 drinks (1 point),?How often did you have a drink containing alcohol in the past year??Monthly or less (1 point),?Interpretation?Positive.?Miscellaneous:?Advance Care Planning?Are you your own decision-maker?Yes,?Do you have Power of Tipple Engineer for Health or Medical??No.?Social History:?Household?Marital Status:?,?Number of Adults in household:?2.? * Medications:?TakinglamoTRIgi ne 100 MG Tablet 1 tablet Orally twice a day Vraylar 3 MG Capsule 1 capsule Oral Once a day Taking lamoTRIgine 100 MG Tablet 1 tablet Orally twice a day Taking Vraylar 3 MG Capsule 1 capsule Oral Once a day DiscontinuedlamoTRIgine 100 MG Tablet 1 tablet Oral twice a day ARIPiprazole 2 MG Tablet Oral Vraylar 3 mg Capsule Oral Medication List reviewed and reconciled with the patientDiscontinued lamoTRIgine 100 MG Tablet 1 tablet Oral twice a day Discontinued ARIPiprazole 2 MG Tablet Oral Discontinued Vraylar 3 mg Capsule Oral Medication List reviewed and reconciled with the patient * Allergies:?N.K.D.A.no[Allerg ies Verified] Objective: * Vitals:?BP:125/87mm Hg, HR:8 7/min, Wt:200lbs, Wt-k.72 kg, Ht: 64.00 in, Ht- cm: 162.56 cm, BMI:34.33Index, Body Surface Area: 2.02. * Examination: ???General Examination: ???- Mental Status Examination: - Patient reports significant depressive episodes characterized by a lack of motivation. - Experiences intrusive thoughts, including suicidal ideation and inappropriate sexual thoughts. - Reports feeling overwhelmed and stressed, particularly in relation to work. - Sleep pattern is described as irregular. - No recent manic episodes reported; however, patient described a past episode of feeling restless. Assessment: * Assessment: 1.?Generalized anxiety disor vangie - F41.1???2.?Mixed obsessional thoughts and acts - F42.2???3.?Depressed bipolar disorder - F31.9??? 1. Bipolar Disorder:- Contin ue lamotrigine 100 mg twice a day- Continue Vraylar 3 mg dailyPlan:- Monitor for any manic or depressive episodes2. Depression:- Start sertraline 25 mg daily for one week, then increase to 50 mg daily for one week, and finally to 100 mg dailyPlan:- Follow up in one month to assess response to sertraline- Encourage patient to discuss depressive symptoms with counselor3. Obsessive-Compulsive Disorder (OCD) and Intrusive Thoughts:- Sertraline titration as mentioned above for depression, as it may also help with OCD symptomsPlan:- Encourage patient to discuss OCD and intrusive thoughts with counselor4. Anxiety:- Continue as needed use of alprazolam 0.5 mg for anxiety episodesPlan:- Encourage patient to discuss anxiety management strategies with counselor5. Insomnia:Plan:- Encourage patient to maintain a regular sleep schedule- Monitor sleep patterns and discuss any concerns with the counselor6. Work Stress:Plan:- Encourage patient to consider reducing work hours or finding a less stressful job if financially feasible- Encourage self-care, including taking lunch breaks and finishing work on time- Discuss work stress management strategies with counselor7. Medication adherence:Plan:- Reinforce the importance of taking medications as prescribed- Monitor patient's adherence to the medication regimen during follow-up visitsFollow-up in one month to assess the patient's response to sertraline and overall mental health status. If the patient experiences any issues with sertraline or worsening of symptoms, they should contact the clinic immediately. Plan: * Treatment: 2.?Mixed obsessional thought s and acts? Start Sertraline HCl Tablet, 25 MG, 1 tablet daily x 7 days then 2 tablets daily x 7 days, Orally, Once a day, 14 days, 21, Refills 0;?Start Sertraline HCl Tablet, 100 MG, 1 tablet, Oral, Once a day, 30 days, 30 Tablet, Refills 1.?? 3.?Depressed bipolar disorde r? Refill lamoTRIgine Tablet, 100 MG, 1 tablet, Orally, twice a day, 90 days, 180 Tablet;?Refill Vraylar Capsule, 3 MG, 1 capsule, Oral, Once a day, 90 days, 90 Capsule, Refills 0.?? * Labs:? * ?Lab: UDT (Collection Da te & Time - 02/21/2024) ? Value Reference Range ?THC p 0 - 50 ng/ml * ?Cocaine n 0 - 300 ng/ml * ?Amphetamine n 0 - 1000 ng /ml * ?Buprenorphine (BUP) n 0 - 10 ng/ml * ?Secobarbital (Bar) n 0 - 300 ng/ml * ?Oxazepam (BZO) n 0 - 300 ng/ml * ?3-rqsdhojkll-8,9-rbtqgyvr-1,3-diphenylpyrrolidine (EDDP) n 0 - 300 ng/ml * ?Methamphetamine (MET) n 0 - 1000 ng/ml * ?Methylenedioxymethamphetamine (MDMA) n 0 - 500 ng/ml * ?Morphine (MOP 300/[id number]) n 0 - 300 ng/ml * ?Methadone (MTD) n 0 - 300 ng/ml * ?Phencyclidine (PCP) n 0 - 25 ng/ml * ?Propoxyphene (PPX) n 0 - 300 ng/ml * ?Nortriptyline (TCA) n 0 - 1000 ng/ml * ?Oxycodone n 0 - 300 ng/ml ?Lab: Test (Collection Date & Time - 02/21/2024)* ? Value Reference Range ? Test urine n 0 - 0 * Procedure Codes:?80506 DRUG TST PRSMV READ INSTRMNT ASSTD DIR OPT [id number] BEHAV ASSMT W/SCORE & DOCD/STAND [id number] VISIT COMPLEXITY INHERENT TO ONGOING CARE RELATED TO A PATIENT'S SINGLE, SERIOUS CONDITION OR A COMPLEX [id number] URINE TEST VISUAL COLOR CMPRSN METHS * Follow Up:?4 Weeks (Reason: f/u ocd) * Billing Information: * Visit Code:? 38380 OFFICE OUTPATIENT VISIT 25 MINUTES DETAILED HISTORY AND EXAM/MODERATE MEDICAL DECISION MAKING. * Procedure Codes:? 94110 DRUG TST PRSMV READ INSTRMNT ASSTD DIR OPT OBS. 23382 BEHAV ASSMT W/SCORE & DOCD/STAND INSTRUMENT. G2211 VISIT COMPLEXITY INHERENT TO ONGOING CARE RELATED TO A PATIENT'S SINGLE, SERIOUS CONDITION OR A COMPLEX CONDITION. 20972 URINE TEST VISUAL COLOR CMPRSN METHS. * S PROPERTY MANAGER Sign off status: Completed true * Provider:?STEPH TAM Date:?04/2023 Generated for Rene michelle/Mariajose/eTchanismdaron on:?04/13/2024 05:39 AM SALES PROPERTY MANAGER History and Physical Notes * HPI (History of Present Illness) Category Sub-Category Detail Notes Category Not es History of Presenting Problem Anxiety intrusive thoughts of even when not depressed, intrusive inappropriate sexual thoughts, intrusive thoughts like don't drive care into traffic. Feels upset by these., Aggravated by: work stress Depression Depression episode s tarted a few weeks ago, feels it is improving- poor appetite, sleeping too much, crying a lot, suicidal thoughts. No plan or intent on suicide but feels it would be easier than keep trying to get better. Obsessive thoughts intrusive thoughts Past Psychiatric Hospitalizations Previous psychiatric hospitalizations Previous Psychiatric Hospitalization: No Past History of Suicidal attempt Have yo u ever attempted suicide in the past: No Depression screening PHQ-9 Little inte rest or pleasure in doing things: Several days Feeling down, depressed, or hopeless: Se veral days Trouble falling or staying asleep, or sl eeping too much: Several days Feeling tired or having little energy: S everal days Poor appetite or overeating: Several day s Feeling bad about yourself o r that you are a failure, or have let yourself or your family down: Several days Trouble concentrating on thi ngs, such as reading the newspaper or watching television: Several days Moving or speaking so slowly that other people could have noticed; or the opposite, being so fidgety or restless that you have been moving around a lot more than usual: Not at all Thoughts that you would be b ehsan off or of hurting yourself in some way: Several days (Consider Suicide Assessment Risk) Total Score: 8 Interpretation: Mild Depression Intervention Depression Screening Findings: P ositve Follow-Up for Depression: [facility] treatment assessment, Patient follow-up to return when and if necessary Suicide Risk Assessment Performed: Additional Evaluation for De pression: Psychiatric interview and evaluation Name of the standardized too l used for adult depression screening:: Patient Health Questionnaire (PHQ-9) Depression Screening ANNAMARIA-7 (2018 Edition) Feelin g nervous, anxious, or on edge: Several days Not being able to stop or control worryi ng: Nearly every day Worrying too much about different things : Nearly every day Trouble relaxing: Nearly every day Being so restless that it is hard to sit still: Not at all Becoming easily annoyed or irritable: Ne garcía every day Feeling afraid as if something awful nirav ht happen: Nearly every day Total ANNAMARIA-7 Score: 16 If you checked any problems, how difficult have they made it for you to do your work, take care of things at home, or get along with other people?: Extremely difficult Interpretation of Total: (15 and over) S shayla Murdock-Suicide Severity Rating Scale Suicide Risk (CSRS-screener) in the past one month Have you wished you were or wished you could go to sleep and not wake up?: Yes in the past one month Have y ou actually had any thoughts of killing yourself?: Yes Examination Category Sub-Category Detail Notes Category Not es General Examination - Mental Status Examination: - Patient reports significant depressive episodes characterized by a lack of motivation. - Experiences intrusive thoughts, including suicidal ideation and inappropriate sexual thoughts. - Reports feeling overwhelmed and stressed, particularly in relation to work. - Sleep pattern is described as irregular. - No recent manic episodes reported; however, patient described a past episode of feeling restless.
--- OUTSIDE RECORDS SUMMARY | 2024-04-13 05:40 | XMS_ITS | Patient Health Record ---
Author Organization [facility] [facility] Address [address] [place] [address] Care Team Providers Care Basket Turner Name Role Phone Onur Ingram DO Primary Care Provider Arely tiffanycucaRenny Angulo Unavailable [phone] Migration, Provider Unavailable Unavailable Allergies No Known Allergies Results Component Value Reference Range Notes UDT Reviewed date:02/28/2024 10:20:18 AM Interpretation: Performing Lab: Notes/Report: THC p 0 - 50 ng/ml Cocaine n 0 - 300 ng/ml Amphetamine n 0 - 1000 ng/ml Buprenorphine (BUP) n 0 - 10 ng/ml Secobarbital (Bar) n 0 - 300 ng/ml Oxazepam (BZO) n 0 - 300 ng/ml 6-geiaiiyeiu-7,0-plrlflid-2,3-diphenylpyrrolidine (VANDANA P) n 0 - 300 ng/ml Methamphetamine (MET) n 0 - 1000 ng/ml Methylenedioxymethamphetamine (MDMA) n 0 - 500 ng/ml Morphine (MOP 300/TBF5645) n 0 - 300 ng/ml Methadone (MTD) n 0 - 300 ng/ml Phencyclidine (PCP) n 0 - 25 ng/ml Propoxyphene (PPX) n 0 - 300 ng/ml Nortriptyline (TCA) n 0 - 1000 ng/ml Oxycodone n 0 - 300 ng/ml Test Reviewed date:02/28/2024 10:20:18 AM Interpretation: Performing Lab: Notes/Report: Test urine n 0 - 0 Reason For Referral No Information Medications Medication SIG (Take, Route, Fr equency, Duration) Notes Start Date End Date Status Vraylar 3 MG 1 capsule Oral Once a day for 90 days 01/11/2024 Active lamoTRIgine 100 MG 1 tablet Orally twic e a day for 90 days 01/11/2024 Active Sertraline HCl 25 MG 1 tablet daily x 7 days then 2 tablets daily x 7 days Orally Once a day for 14 days 02/21/2024 Active Ondansetron HCl 8 MG 1 tablet as needed Orally twice a day for 14 days 02/29/2024 Active Sertraline HCl 100 MG 1 tablet Oral Once a day for 30 days 02/21/2024 Active Immunizations Vaccine Route Administration Date Status Comme nts DTP Unknown 1991 Administered DTP Unknown 01/09/1992 Administered DTP Unknown 04/09/1992 Administered DTP Unknown 03/25/1993 Administered Hib (HbOC), 4 dose schedule Unknown 1991 Administ ered Hib (HbOC), 4 dose schedule Unknown 01/09/1992 Administ ered Hib (HbOC), 4 dose schedule Unknown 04/09/1992 Administ ered Hib (HbOC), 4 dose schedule Unknown 02/18/1993 Administ ered Hib, unspecified formulation Unknown 1991 Adminis tered Hib, unspecified formulation Unknown 01/09/1992 Adminis tered Hib, unspecified formulation Unknown 04/09/1992 Adminis tered Hib, unspecified formulation Unknown 02/18/1993 Adminis tered Influenza virus vaccine, quadrivalent (IIV4), split virus, 0.25 mL dosage Unknown 11/03/2015 Administered Influenza, unspecified formulation Unknown 11/03/2015 A dministered Influenza, unspecified formulation Unknown 12/06/2016 A dministered Influenza, unspecified formulation Unknown 12/19/2018 A dministered MMR Unknown 02/18/1993 Administered Novel [id number]-[id number], preservative free Unknown 12/06/2016 Administered OPV Unknown 1991 Administered OPV Unknown 01/09/1992 Administered OPV Unknown 03/25/1993 Administered Pfizer Biontech Covid-19 Vac cine 2nd dose Unknown 03/08/2020 Administered Pfizer [employer] Covid-19 Vac cine 2nd dose Unknown 03/29/2020 Administered Pfizer Biontech Covid-19 Vac cine 2nd dose Unknown 05/25/2021 Administered Tdap Unknown 11/03/2015 Administered Social History Tobacco Use: Social History Observation [...] Problem Status W/U Status Risk Notes Problem Mixed bipolar I disorder (24288163) Bipolar disorder, current episode mixed, unspecified (F31.60) 4 Active confirmed Problem Generalized anxiety disorder (37053149) Generalized anxiety disorder (F41.1) 4 Active confirmed Problem 85774382 Mixed obsessional thoughts and acts (F42.2) Active confirmed Problem 327176358 Depressed bipolar disorder (F31.9) Active confirmed Vital Signs Heart Rate 87 /min 02/21/2024 Blood pressure diastolic 87 mm Hg 02/21/2024 Height-cm 162.56 cm 02/21/2024 Weight-kg 90.72 kg 02/21/2024 Height 64.00 in 02/21/2024 Blood pressure systolic 125 mm Hg 02/21/2024 Weight 200 lbs 02/21/2024 BMI 34.33 kg/m2 02/21/2024 Encounters Encounter Location Date Provider Diagnosis [facility] [employer] [address] [facility] [address] [place] [address] 05/24/2023 Provider Migration Bipolar disorder, current episode mixed, unspecified F31.60 [facility] [employer] [facility] [facility] [address] [place] [address] 06/14/2023 Provider Migration Bipolar disorder, current episode mixed, unspecified F31.60 [facility] [employer] [facility] [facility] [address] [place] [address] 07/12/2023 Renny Verdin Generalized anxiety disorder F41.1 and Bipolar disorder, current episode mixed, unspecified F31.60 [facility] [address] [facility] [address] [place] [address] 02/21/2024 Renny Verdin Generalized anxiety disorder F41.1 ; Mixed obsessional thoughts and acts F42.2 and Depressed bipolar disorder F31.9 [facility] [address] [facility] [address] [place] [address] 05/24/2023 Provider Migration [facility] [address] [facility] [address] [place] [address] 08/07/2023 Provider Migration [facility] [address] [address] 08/08/2023 Provider [facility] [address] [address] 01/10/2024 Renny Verdin [facility] [address] [address] 01/11/2024 Renny Verdin Bipolar disorder, current episode mixed, unspecified F31.60 [place] [address] [address] 02/28/2024 Renny Verdin Nausea R11.0 Assessments Encounter Date Diagnosis (ICD Code) Assessment Notes Treatment Notes Treatment Clinical Notes Section Notes 01/11/2024 Bipolar disorder, current episode mixed, unspecified (ICD-10 - F31.60) 02/21/2024 Generalized anxiety disorder (ICD-10 - F41.1) [...] symptoms, they should contact the clinic immediately. 02/28/2024 Nausea (ICD-10 - R11.0) 05/24/2023 Bipolar disorder, current episode mixed, unspecified (ICD-10 - F31.60) 06/14/2023 Bipolar disorder, current episode mixed, unspecified (ICD-10 - F31.60) 07/12/2023 Bipolar disorder, current episode mixed, unspecified (ICD-10 - F31.60) 07/12/2023 Generalized anxiety disorder (ICD-10 - F41.1) 02/21/2024 Mixed obsessional thoughts and acts (ICD-10 [...] contact the clinic immediately. Plan Of Treatment Next Appt Details Provider Name:Renny patricia, 04/17/2024 10:15:00 AM, [address], [address], [place], [address], Insurance Providers Payer Name Payer Address Payer Phone Subscriber Number Group Number Insured Name Patient Relationship to Insured Coverage Start Date Coverage End Date [facility] [address] [place] [address] [id number] MAIRA ATKINS Spouse - patient is the spouse of the insured Medical (General) History Medical History History ICD Code Problems: Bipolar affective disorder, cu rrent episode mixed Generalized anxiety disorder Mixed anxiety and depressive disorder Right upper quadrant pain , Past Psychiatric History: Anxiety Disord er,Panic Disorder,Phobias abdominal aortic aneurysm: No atrial fibrillation: No chronic fatigue syndrome: No essential tremor: No hypertension: No Parkinson's disease: No restless leg syndrome: No stroke: No subdural hematoma: No type 1 diabetes mellitus: No type 2 diabetes mellitus: No vitamin B12 deficiency: No vitamin D deficiency: No
--- OUTSIDE RECORDS SUMMARY | 2024-04-13 05:40 | XMS_ITS ---
Author Organization [facility] Address [address] [facility] [address] [place] [address] Care Team Providers Care Rotary Drum Dyer Name Role Phone Onur Ingram DO Primary Care Provider Arely Renny Comer Unavailable [phone] REASON FOR VISIT Refill Lamotrigine Vraylar Medications Medication SIG (Take, Route, Fr equency, Duration) Notes Start Date End Date Status lamoTRIgine 100 MG 1 tablet Orally twic e a day for 90 days 01/11/2024 Active Vraylar 3 MG 1 capsule Oral Once a day for 90 days 01/11/2024 Active Social History Sex Assigned At : Social History Observation Description Sex Assigned At Female Problems Problem Type SNOMED Code ICD Code Onset Dates Problem Status W/U Status Risk Notes Problem Mixed bipolar I disorder (70687194) Bipolar disorder, current episode mixed, unspecified (F31.60) 07/12/2023 Active confirmed Encounters Encounter Location Date Provider Diagnosis [facility] [employer] [facility] [address] [facility] [address] [facility] [address] [place] [address] 01/11/2024 Renny Verdin Bipolar disorder, current episode mixed, unspecified F31.60 Assessments Encounter Date Diagnosis (ICD Code) Assessment Notes Treatment Notes Treatment Clinical Notes Section Notes 01/11/2024 Bipolar disorder, current episode mixed, unspecified (ICD-10 - F31.60) Plan Of Treatment Medication Medication Name Sig Start Date Stop Date Notes lamoTRIgine 100 MG 1 tablet Orally twice a day for 90 days 01/11/2024 Vraylar 3 MG 1 capsule Oral Once a day for 90 days 10/22/2 024 Next Appt Details Provider Name:Renny Chacon Briandelta patricia, 04/17/2024 10:15:00 AM, [address], [facility] [address], [place], [address], Progress Notes * JOSSE ATKINS ANNDOB:[birth year] (33 yo F)Acc No.[id number]:01/11/2024 Patient:?JOSSE ATKINS FRANCO :1990???Age:33 Y???Sex:Female Address:[address], [place], [address] * Refills? Start lamoTRIgine Tablet, 100 MG, Orally, 180 Tablet, 1 tablet, twice a day, 90 days Start Vraylar Capsule, 3 MG, Oral, 90 Capsule, 1 capsule, Once a day, 90 days, Refills=0 Subjective: * Chief Complaints: * ???Refill Lamotrigine Vrayla r * Medical History:? * Surgical History:? * Hospitalization/Major Diagno stic Procedure:? * Medications:? Objective: * Vitals:? * Physical Examination:? Assessment: * Assessment: 1.?Bipolar disorder, current episode mixed, unspecified - F31.60 (Primary)??? Plan: * Treatment: * Procedure Codes:? * true * Date:? Generated for Rene michelle/Mariajose/Larissasmitting on:?04/13/2024 05:39 AM RENDERING EQUIPMENT TENDER
== END 2024-04-08 14:20 | disposition home or self-care (01) ==
LOC: ANHED 12:19 → ANH3MEDSUR 15:58
PROVIDERS: Student in an Organized Health Care Education/Training Program; Admitting Provider General Practice; Emergency Provider Emergency Medicine; PCP Student in an Organized Health Care Education/Training Program; Visit Provider Hospitalist
DX: K66.1 Hemoperitoneum (principal); R10.84 Generalized abdominal pain; R10.2 Pelvic and perineal pain; N83.209 Unspecified ovarian cyst, unspecified side; R65.10 Systemic inflammatory response syndrome (SIRS) of non-infectious origin without acute organ dysfunction; Z87.891 Personal history of nicotine dependence; Z79.899 Other long term (current) drug therapy
CPT/HCPCS: 36415; 74177; 80048; 80053; 81001; 81025; 83036; 83605; 83690; 84145; 85025; 85610; 85730; 87040; 87086; 87491; 87591; 87661; 96361; 96365; 96367; 96375; 96376; 99285; A9270; G0378; J0696; J1741; J1836; J2270; J2405; J7030; J7120; Q9967

== ENCOUNTER 2024-06-22 14:07 | Outpatient (CLI) | payer OTHER, SELFPAY ==
--- NOTE | ~2024-06-22 | US_ITS ---
EXAMINATION: US pelvic complete w TV INDICATION: Pelvic and perineal pain Comparison:No prior studies for comparison. TECHNIQUE: Multiple transabdominal and endovaginal sonographic images of the pelvis performed. FINDINGS: The uterus measures 10.3 x 3.4 x 5.9 cm. The endometrial complex measures 6 mm. The right ovary measures 2.7 x 2.4 x 1.7 cm and the left ovary measures 4.6 x 2.3 x 2.8 cm. There ar e small follicles in each ovary. Normal doppler signal in both ovaries. There is no free fluid in the pelvis. There are no abnormal masses seen on either side. IMPRESSION: 1. Unremarkable pelvic ultrasound. Reviewed, dictated and finalized at location A.
--- OUTSIDE RECORDS SUMMARY | 2024-06-22 14:34 | XMS_ITS | Clinical Summary ---
Author Organization [facility] Address [address] [place] [address] Care Team Providers Care Segment Producer Name Role Phone Candace Jacome MD Primary Care Provider + Allergies Active Allergy Reactions Criticality Noted Date Comments Topiramate Other (see comment) 03/27/2014 Depression Medications VRAYLAR 3 MG capsule Take 1 capsule (3 mg total) by mouth daily. 01/11/2024 Active lamoTRIgine (LAMICTAL) 100 MG tablet Take 1 tablet (100 mg total) by mouth 2 (two) times daily. 01/11/2024 Active ondansetron (ZOFRAN) 8 MG tablet every 8 (eight) hours as needed. 02/29/2024 Active sertraline (ZOLOFT) 100 MG tablet Take 1 tablet (100 mg total) by mouth daily. 03/29/2024 Active Active Problems Problem Noted Date Diagnosed Date OCD (obsessive compulsive disorder) 04/14/2024 Overview (04/14/2024): Intrusive thoughts. Ascites 04/12/2024 Overview (04/14/2024): Complex ascites. Admitted for sepsis 03/2024. Hemoperitoneum vs ovarian cyst or peritonitis, PID or diverticulitis. Ovarian cyst was the conclusion. WBC normalized so she was sent home without antibiotics. Admitted 04/07 and discharged 04/08. Bipolar affective disorder, currently depressed, mild (CMS/HCC HHS/HCC) 09/26/2018 Overview (04/14/2024): Sees psychiatry, Dr. Verdin locally. Takes lamotrigine, sertraline, vraylar. Encounters Date Type Department Care Team Description 04/17/2024 Telephone [place] [phone] [facility] [address] [place] [address] Candace Jacome MD Record Request 04/14/2024 12:50 PM STUDIO PRODUCER Office Visit [facility] [address] [facility] [address] [place] [address] Candace Jacome MD New Patient (Here to establishe care. ); ER F/U (Follow up. She states that she was in for 24hr observation. Ovarian cyst-right side. The cyst finally did rupture. Last wednesday) 04/14/2024 Travel 04/07/2024 Scan [employer] INFO SRVCS Scanned, [facility] Lab (SCAN); CT (SCAN) from Last 3 Months Immunizations Name Administration Dates Next Due Dtp 03/25/1993, 3,01/09/1992, 992 Hib 02/18/1993, 3,01/09/1992, 992 Hib (Generic) 02/18/1993, 3,01/09/1992, 992 Influenza Adult (Generic) 12/19/2018,12/06/2016, 11/03/2015 MMR 02/18/1993 Opv 03/25/1993,01/09/1992,1991 PFIZER COVID-19 (ORIGINAL FORMULATION, PURPLE CAP) mRNA, LNP-S, PF, 30 MCG/0.3 ML DOSE 03/29/2020,03/08/2020 Tdap (Boostrix) 11/03/2015 Family History Medical History Relation Comments No Known Problems Brother Hypertension Father Cancer Maternal Grandmother breast Crohns Disease Mother Hypertension Mother Mental Health Mother Alzheimers Paternal Grandfather Dementia Paternal Grandmother Relation Status Comments Brother Alive Father Alive Maternal Grandmother (Age 90) Mother Alive Paternal Grandfather Paternal Grandmother Social History Tobacco Use Types Packs/Day Years Used Date Smoking Tobacco: Former Cigarettes 0.1 5 1 - 03/21/2019 Passive Smoke Exposure: Past Smokeless Tobacco: Never Tobacco Cessation:Counseling Given: No Alcohol Use Standard Drinks/Week Comments Yes 0 (1 standard drink = 0.6 oz pur e alcohol) Social events PHQ-2 Answer Date Recorded Patient Health Questionnaire-2 Score 2 04/14/2024 Comments No Sex and Gender Information Value Date Recorded Sex Assigned at Not on file Legal Sex Female 7:53 PM CDT Gender Identity Not on file Sexual Orientation Straight 03/23/2018 2: 37 PM STUDIO PRODUCER Last Filed Vital Signs Vital Sign Reading Time Taken Comments Blood Pressure 145/92 04/14/2024 1:13 PM STUDIO PRODUCER Pulse 80 04/14/2024 12:43 PM STUDIO PRODUCER Temperature 37.2 C (99 F) 04/14/2024 12:43 PM STUDIO PRODUCER Respiratory Rate 16 05/28/2020 8:15 AM STUDIO PRODUCER Oxygen Saturation 99% 04/14/2024 12:43 PM STUDIO PRODUCER Inhaled Oxygen Concentration - - Weight 88.2 kg (194 lb 6.4 oz) 04/14/2024 12:43 PM STUDIO PRODUCER Height 162.6 cm (5' 4 ) 04/14/2024 12:43 PM STUDIO PRODUCER Body Mass Index 33.37 04/14/2024 12:43 PM STUDIO PRODUCER Plan of Treatment Upcoming Encounters Date Type Department Care Team (Late st Contact Info) Description 04/19/2025 8:30 AM STUDIO PRODUCER Office Visit [facility] - [place] [address] [facility] [address] [place] [address] Candace Jacome MD [address] [place] [id number] Health Maintenance Due Date Last Done Comments Cervical Cancer Screening Pap Smear (Age 30 to 64) Every 3 Years 1991 Hepatitis C 08/23/2009 Hepatitis B Vaccines (1 of 3 - 19+ 3-dose series) 08/23/2010 Cervical Cancer Screening Pap with HPV Testing (Age 30 to 64) Every 5 Years 08/23/2021 Cervical Cancer Screening with HPV 08/23/2021 COVID-19 Vaccine ( season) 2023 03/29/2020, 03/08/2020 Annual Physical 04/14/2025 04/14/2024, 04/26/2019 DTaP, Tdap and Td Vaccines (2 - Td or Tdap) 11/02/2025 11/03/2015, 03/25/1993, 04/09/1992, Additional history exists PHQ-2 (Physician [place]) Completed 04/14/2024 HPV Vaccines Aged Out No longer eligi ble based on patient's age to complete this topic Meningococcal B Vaccine Aged Out No l onger eligible based on patient's age to complete this topic Meningococcal Vaccine Aged Out No rafia ludy eligible based on patient's age to complete this topic Pneumococcal Vaccine: Pediatrics (0 to 5 Years) and At-Risk Patients (6 to 64 Years) Aged Out No longer eligible based on patient's age to complete this topic RSV Immunizations Under 20 Months Aged Out No longer eligible based on patient's age to complete this topic Procedures Procedure Name Priority Date/Time Associated Diagnosis Comments COLLECTION VENOUS BLOOD VENIPUNCTURE Routine 04/14/2024 1:24 PM STUDIO PRODUCER Routine general medical examination at a health care facility LIPID PANEL Routine 04/14/2024 1:23 PM STUDIO PRODUCER Routine general medical examination at a [facility] care facility CT GENERIC 04/07/2024 OUTSIDE LAB (SCAN ORDER) 04/07/2024 OUTSIDE LAB (SCAN ORDER) 04/07/2024 OUTSIDE LAB (SCAN ORDER) 04/07/2024 OUTSIDE LAB (SCAN ORDER) 04/07/2024 OUTSIDE LAB (SCAN ORDER) 04/07/2024 from Last 3 Months Results * LIPID PANEL (04/14/2024 1:23 PM STUDIO PRODUCER) CHOLESTEROL 181 <200 MG/DL 04/14/2024 8:06 PM STUDIO PRODUCER [facility] TRIGLYCERIDES 105 <150 MG/DL 04/14/2024 8:06 PM STUDIO PRODUCER [facility] HDL 63 >40 MG/DL 04/14/2024 8:06 PM STUDIO PRODUCER [facility] LDL-C 97 <100 MG/DL 04/14/2024 8:06 PM STUDIO PRODUCER [facility] VLDL CALCULATION 21 5 - 28 MG/DL 04/14/2024 8:06 PM STUDIO PRODUCER [facility] CHOL/HDL RATIO 2.9 0.0 - 4.0 04/14/2024 8:06 PM STUDIO PRODUCER [facility] [place] LDL/HDL 1.5 0.41 - 2.13 04/14/2024 8:06 PM STUDIO PRODUCER [facility] [place], [place] NON HDL CHOLESTEROL 118 <140 MG/DL 04/14/2024 8:06 PM STUDIO PRODUCER [facility] [place] 04/14/2024 1:23 PM STUDIO PRODUCER Candace Jacome MD LABORATORY Final Re sult ELANA UREÑA [place] [address] [facility] [place] [address], [place] [phone] * CT GENERIC (04/07/2024) Anatomical Region Laterality Modality Other 04/07/2024 [employer] [facility] Scanned SCANNING Final Resu lt * OUTSIDE LAB (SCAN ORDER) (04/07/2024) Only the most recent of5 resultswithin the time period is included. 04/07/2024 [employer] [facility] Scanned SCANNING Final Resu lt from Last 3 Months Insurance [facility] [address] Care Teams Segment Producer Relationship Specialty Start Date End Date Candace Jacome MD [address] [facility] [address] [place] [id number] PCP - General FAMILY PRACTICE 04/14/24
--- OUTSIDE RECORDS SUMMARY | 2024-06-22 14:34 | XMS_ITS ---
Author Organization [facility] Address [address] [place] [address] Care Team Providers Care Manuscripts Curator Name Role Phone Ayaz GILLESPIE, Candace Primary Care Provider Arely Renny Comer Unavailable [phone] Allergies No Known Allergies REASON FOR VISIT follow up medication eval Medications Medication SIG (Take, Route, Fr equency, Duration) Notes Start Date End Date Status Ondansetron HCl 8 MG 1 tablet as needed Orally twice a day for 14 days 02/29/2024 Active Vraylar 3 MG 1 capsule Oral Once a day for 90 days Active lamoTRIgine 100 MG 1 tablet Orally twic e a day for 90 days Active Sertraline HCl 100 MG 1 tablet Oral Once a day for 30 days Active Social History Sex Assigned At : Social History Observation Description Sex Assigned At Female Vital Signs Blood pressure systolic 121 mm Hg 04/17/19 25 Blood pressure diastolic 85 mm Hg 025 Heart Rate 75 /min 04/17/2024 Height 64.00 in 04/17/2024 Weight 199 lbs 04/17/2024 BMI 34.15 kg/m2 04/17/2024 Height-cm 162.56 cm 04/17/2024 Weight-kg 90.27 kg 04/17/2024 Encounters Encounter Location Date Provider Diagnosis [facility] [address] [place] [address] 04/17/2024 Renny Verdin Generalized anxiety disorder F41.1 ; Mixed obsessional thoughts and acts F42.2 and Depressed bipolar disorder F31.9 Assessments Encounter Date Diagnosis (ICD Code) Assessment Notes Treatment Notes Treatment Clinical Notes Section Notes 04/17/2024 Generalized anxiety disorder (ICD-10 - F41.1) alprazolam 0.5mg daily prn 04/17/2024 Mixed obsessional thoughts and acts (ICD-10 - F42.2) 04/17/2024 Depressed bipolar disorder (ICD-10 - F31.9) 04/17/2024 Other 1. Ruptured ovarian cyst: - Patient was hospitalized last weekend due to a ruptured ovarian cyst. - Patient has found a new primary care physician and OBGYN for follow-up care. Plan: - Encourage the patient to attend follow-up appointments with the new primary care physician and OBGYN. 2. Anxiety and intrusive thoughts: - Patient reports ongoing anxiety and intrusive thoughts, although they have decreased in frequency. - Sertraline 100 mg daily will be continued for another month. Plan: - Reassess the need for a dosage increase at the next appointment. - Encourage the patient to resume counseling sessions when possible. 3. Hypomanic episode: - Patient reports a recent hypomanic episode with impulsive decision-making. Plan: - Continue lamotrigine and Vraylar as prescribed. - Monitor for any changes in mood or behavior and report any concerns. 4. Nausea: - Patient reports improvement in nausea since starting sertraline, with the help of Zonia. Plan: - Continue to monitor for any changes in nausea and adjust treatment as needed. 5. Preventive care: Plan: - Encourage the patient to establish care with a primary care physician and OBGYN for routine blood work and yearly maintenance. - Reinforce the importance of preventive care for overall health and well-being. 6. Follow-up: - Schedule a follow-up appointment in one month to reassess the patient's progress and adjust treatment as needed. Plan Of Treatment Medication Medication Name Sig Start Date Stop Date Notes Vraylar 3 MG 1 capsule Oral Once a day for 90 days lamoTRIgine 100 MG 1 tablet Orally twic e a day for 90 days Sertraline HCl 100 MG 1 tablet Oral Once a day for 30 days Treatment Notes Assessment Notes Generalized anxiety disorder alprazolam 0.5mg daily prn Next Appt Details Follow Up: 4 Weeks, Reason: f/u anxiety, ocd Progress Notes * JOSSE ATKINS ANNDOB:[birth year] (33 yo F)Acc No.[id number]:04/17/2024 Patient: JOSSE SHAH Provider: STEPH GALLO :1990 A ge:33 Y S ex:Female Date:04/17/2024 Address:[facility] [place] [address] Pcp:aCndace Jacome MD Subjective: * Chief Complaints: * F ollow up medication eval * HPI: D epression screening: the note is transcribed using speech recognition software. It is a reflection of a visit with the patient. It might have some inaccuracy, including medication names and transcribing errors, though efforts have been made to correct them. Chief complaint- Anxiety, intrusive thoughts, recent hospitalization. The patient reports a recent hospitalization due to a ruptured ovarian cyst last weekend. Initially misdiagnosed as diverticulitis perforation, she was treated with antibiotics. The experience was painful and necessitated finding new primary care and [facility] providers. The patient describes ongoing anxiety with intrusive thoughts, particularly concerning family members getting hurt. These thoughts have decreased in frequency but are still present. She reports a recent hypomanic episode leading to poor decision-making, which she describes as a compulsion she couldn't control. The patient is currently taking sertraline 100 mg for anxiety and intrusive thoughts. She experienced initial nausea with the medication, which was managed with Zofran. Nausea has since improved, allowing her to resume normal eating habits. She is also on lamotrigine and Vraylar. The patient expresses difficulty returning to work post-hospitalization, citing complaints from others and a desire to stay home. She reports challenges in seeking medical care, noting a 3-hour delay in deciding to go to the ER due to severe pain, initially suspected to be appendicitis. The ER visit involved a pelvic exam, which she found somewhat traumatic. 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 She has been seeing a counselor, though she has been unable to attend recently. PHQ-9 L ittle interest or pleasure in doing things?Several days F eeling down, depressed, or hopeless N ot at all T rouble falling or staying asleep, or sleeping too much N ot at all F eeling tired or having little energy S P oor appetite or overeating N ot at all F eeling bad about yourself or that you are a failure, or have let yourself or your family down S T rouble concentrating on things, such as reading the newspaper or watching television S M oving or speaking so slowly that other people could have noticed; or the opposite, being so fidgety or restless that you have been moving around a lot more than usual N ot at all T houghts that you would be better off or of hurting yourself in some way S (Consider Suicide Assessment Risk) T otal Score 5 I nterpretation M ild Depression Intervention D epression Screening Findings P ositve F ollow-Up for Depression M [facility] treatment assessment, Patient follow-up to return when and if necessary S uicide Risk Assessment Performed _ A dditional Evaluation for Depression P sychiatric interview and evaluation N terrell of the standardized tool used for adult depression screening: P atient Health Questionnaire (PHQ-9) D epression Screening: ANNAMARIA-7 (2018 Edition) F eeling nervous, anxious, or on edge S N ot being able to stop or control worrying?Several days W orrying too much about different things S T rouble relaxing S B eing so restless that it is hard to sit still N ot at all B ecoming easily annoyed or irritable N ot at all F eeling afraid as if something awful might happen N ot at all T otal ANNAMARIA-7 Score 4 I nterpretation of Total ( 0 to 4) No Anxiety P ast Psychiatric Hospitalizations: Previous psychiatric hospitalizations P revious Psychiatric Hospitalization N o Past History of Suicidal attempt H ave you ever attempted suicide in the past?No H istory of Presenting Problem: Anxiety i ntrusive thoughts improving intrusive thoughts of even when not depressed, intrusive inappropriate sexual thoughts, intrusive thoughts like don't drive care into traffic. Feels upset by these., Aggravated by: work stress. Depression D epression episode started a few weeks ago, feels it is improving- poor appetite, sleeping too much, crying a lot, suicidal thoughts. No plan or intent on suicide but feels it would be easier than keep trying to get better. . Obsessive thoughts i ntrusive thoughts. P ast Medication history: prozac- age 14 suicidal ideation, lexapro- killed sex drive, abilify- side effects. * Medical History: * Surgical History: * Hospitalization/Major Diagno stic Procedure: * Medications: T akinglamoTRIgine 100 MG Tablet 1 tablet Orally twice a day Vraylar 3 MG Capsule 1 capsule Oral Once a day Sertraline HCl 100 MG Tablet 1 tablet Oral Once a day Ondansetron HCl 8 MG Tablet 1 tablet as needed Orally twice a day Taking lamoTRIgine 100 MG Tablet 1 tablet Orally twice a day Taking Vraylar 3 MG Capsule 1 capsule Oral Once a day Taking Sertraline HCl 100 MG Tablet 1 tablet Oral Once a day Taking Ondansetron HCl 8 MG Tablet 1 tablet as needed Orally twice a day DiscontinuedSertraline HCl 25 MG Tablet 1 tablet daily x 7 days then 2 tablets daily x 7 days Orally Once a day Medication List reviewed and reconciled with the patientDiscontinued Sertraline HCl 25 MG Tablet 1 tablet daily x 7 days then 2 tablets daily x 7 days Orally Once a day Medication List reviewed and reconciled with the patient * Allergies: N .K.D.A.no[Allergies Verified] Objective: * Vitals: B P:121/85mm Hg, HR:75/min, Wt:199lbs, Wt-k.27 kg, Ht: 64.00 in, Ht-cm: 162.56 cm, BMI:34.15Index, Body Surface Area: 2.02. * Examination: P sychiatry: Appearance: w ell-groomed, well-nourished, .... Affect / mood: a ppropriate, full range. Attention: g ood. Attitude: c ooperative. Suicidal ideation: n one. Memory status: n o impairment noted. Degree of awareness of surroundings: w ithin normal limits.? Delusions: n o. Hallucinations: n o. Insight: g ood. Intellectual functioning: n o impairment noted. Judgement: g ood. Orientation: a wake, alert and oriented x 3. Perceptual disorders: n o perceptual disorder noted. Psychomotor activity: w ithin normal range. Speech / language: a ppropriate pitch/modulation, clear and coherent, normal rate, volume, and articulation (RVR), proper grammar used. Thought content: a ppropriate. Thought process: i ntact. G eneral Examination: - Mental Status Examination: - Patient reports ongoing anxiety and intrusive thoughts, although less frequent than before. - Describes a recent hypomanic episode with poor decision-making described as compulsive behavior. - Exhibits awareness of her mental health needs and expresses a desire to manage symptoms without medication adjustments at this time. - Physical Examination: - Patient reports a recent hospitalization for a ruptured ovarian cyst, initially misdiagnosed as diverticulitis, treated with antibiotics. - Describes severe pain leading to an emergency room visit; pain management was initially ineffective with Tylenol. Assessment: * Assessment: 1. G eneralized anxiety disorder - F41.1 2 . M ixed obsessional thoughts and acts - F42.2 3 . D epressed bipolar disorder - F31.9 Plan: * Treatment: 2. M ixed obsessional thoughts and acts Refill Sertraline HCl Tablet, 100 MG, 1 tablet, Oral, Once a day, 30 days, 30 Tablet, Refills 1.? 3. D epressed bipolar disorder Continue lamoTRIgine Tablet, 100 MG, 1 tablet, Orally, twice a day, 90 days, 180 Tablet; C ontinue Vraylar Capsule, 3 MG, 1 capsule, Oral, Once a day, 90 days, 90 Capsule, Refills 0. 4. O thers Clinical Notes: 1. Ruptured ovarian cyst: - Patient was hospitalized last weekend due to a ruptured ovarian cyst. - Patient has found a new primary care physician and OBGYN for follow-up care. Plan: - Encourage the patient to attend follow-up appointments with the new primary care physician and OBGYN. 2. Anxiety and intrusive thoughts: - Patient reports ongoing anxiety and intrusive thoughts, although they have decreased in frequency. - Sertraline 100 mg daily will be continued for another month. Plan: - Reassess the need for a dosage increase at the next appointment. - Encourage the patient to resume counseling sessions when possible. 3. Hypomanic episode: - Patient reports a recent hypomanic episode with impulsive decision-making. Plan: - Continue lamotrigine and Vraylar as prescribed. - Monitor for any changes in mood or behavior and report any concerns. 4. Nausea: - Patient reports improvement in nausea since starting sertraline, with the help of Zofran. Plan: - Continue to monitor for any changes in nausea and adjust treatment as needed. 5. Preventive care: Plan: - Encourage the patient to establish care with a primary care physician and OBGYN for routine blood work and yearly maintenance. - Reinforce the importance of preventive care for overall health and well-being. 6. Follow-up: - Schedule a follow-up appointment in one month to reassess the patient's progress and adjust treatment as needed. * Procedure Codes: 9 6127 BEHAV ASSMT W/SCORE & DOCD/STAND INSTRUMENT * Preventive Medicine: Counseling: B P Management: PRE-HYPERTENSIVE FOLLOW-UP PLAN: F ollow-up 2 weeks ____ LIFESTYLE RECOMMENDATION: Sejal silva education Recommended Nonpharmacologic Interventions (Lifestyle Modifications) -Weight ReductionA heart-healthy diet , such as Dietary Approaches to Stop Hypertension (DASH) Eating PlanDietary Sodium RestrictionIncreased Physical ActivityModeration in alcohol consumption REFERRAL TO ALTERNATIVE / PRIMARY CARE PROVIDER: R eferral to general physician * Follow Up: 4 Weeks (Reason: f/u anxiety, ocd) * Billing Information: * Visit Code: 13942 OFFICE OUTPATIENT VISIT 25 MINUTES DETAILED HISTORY AND EXAM/MODERATE MEDICAL DECISION MAKING. * Procedure Codes: 60290 BEHAV ASSMT W/SCORE & DOCD/STAND INSTRUMENT. * COOK Sign off status: Completed true * Provider: STEPH GALLO Date: 0 04/17/2024 Generated for Rene michelle/Mariajose/Briceitting on: 0 06/22/2024 02:33 PM CDT History and Physical Notes * HPI (History of Present Illness) Category Sub-Category Detail Notes Category Not es History of Presenting Problem Anxiety intrusive thoughts improving intrusive thoughts of even when not depressed, [...] Several days Feeling down, depressed, or hopeless: No t at all Trouble falling or staying asleep, or sl eeping too much: Not at all Feeling tired or having little energy: S everal days Poor appetite or overeating: Not at all Feeling bad about yourself o r that [...] days (Consider Suicide Assessment Risk) Total Score: 5 Interpretation: Mild Depression Intervention Depression Screening Findings: P ositve Follow-Up for Depression: [facility] treatment assessment, Patient follow-up to return when and if necessary Suicide Risk Assessment Performed: Additional Evaluation for De pression: Psychiatric interview and evaluation Name of the standardized too l used for adult depression screening:: Patient Health Questionnaire (PHQ-9) Depression Screening ANNAMARIA-7 (2018 Edition) Feelin g nervous, anxious, or on edge: Several days Not being able to stop or control worryi ng: Several days Worrying too much about different things : Several days Trouble relaxing: Several days Being so restless that it is hard to sit still: Not at all Becoming easily annoyed or irritable: No t at all Feeling afraid as if something awful nirav ht happen: Not at all Total ANNAMARIA-7 Score: 4 Interpretation of Total: (0 to 4) No Anx iety Examination Category Sub-Category Detail Notes Category Not es Psychiatry Appearance: well-groomed, well-nourished , ... Attitude: cooperative Psychomotor activity: within normal rang e Attention: good Degree of awareness of surroundings: wit hin normal limits Orientation: awake, alert and ld ented x 3 Affect / mood: appropriate, full ra nge Speech / language: appropriate pitch/mo dulation, clear and coherent, normal rate, volume, and articulation (RVR), proper grammar used Insight: good Judgement: good Thought process: intact Thought content: appropriate Perceptual disorders: no perceptual diso rder noted Suicidal ideation: none Intellectual functioning: no impairment noted Memory status: no impairment noted Delusions: no Hallucinations: no General Examination - Mental Status Examination: - Patient reports ongoing anxiety and intrusive thoughts, although less frequent than before. - Describes a recent hypomanic episode with poor decision-making described as compulsive behavior. - Exhibits awareness of her mental health needs and expresses a desire to manage symptoms without medication adjustments at this time. - Physical Examination: - Patient reports a recent hospitalization for a ruptured ovarian cyst, initially misdiagnosed as diverticulitis, treated with antibiotics. - Describes severe pain leading to an emergency room visit; pain management was initially ineffective with Tylenol."
--- OUTSIDE RECORDS SUMMARY | 2024-06-22 14:34 | XMS_ITS ---
Author Organization [facility] [employer] [facility] Address [address] [facility] [address] [place] [address] Care Team Providers Care Client Reporting Associate Name Role Phone Ayaz GILLESPIE, Candace Primary Care Provider Arely Renny Comer Unavailable [phone] REASON FOR VISIT Nausea Medications Medication SIG (Take, Route, Fr equency, Duration) Notes Start Date End Date Status Ondansetron HCl 8 MG 1 tablet as needed Orally twice a day for 14 days 02/29/2024 Active Social History Sex Assigned At : Social History Observation Description Sex Assigned At Female Encounters Encounter Location Date Provider Diagnosis [facility] [employer] [place] [address] [facility] [address] [facility] [address] [place] [address] 02/28/2024 Renny Verdin Nausea R11.0 Assessments Encounter Date Diagnosis (ICD Code) Assessment Notes Treatment Notes Treatment Clinical Notes Section Notes 02/28/2024 Nausea (ICD-10 - R11.0) Plan Of Treatment Medication Medication Name Sig Start Date Stop Date Notes Ondansetron HCl 8 MG 1 tablet as needed Orally twice a day for 14 days 02/29/2024 Progress Notes * JOSSE ATKINS ANNDOB:[birth year] (33 yo F)Acc No.[id number]:02/28/2024 Patient: Scotty DANONATHANIELJOSSE :1990 A ge:33 Y S ex:Female Address:[address], [place], [address] * Refills Start Ondansetron HCl Tablet, 8 MG, Orally, 28 Tablet, 1 tablet as needed, twice a day, 14 days, Refills=0 Subjective: * Chief Complaints: * N ausea * Medical History: * Surgical History: * Hospitalization/Major Diagno stic Procedure: * Medications: Objective: * Vitals: * Physical Examination: Assessment: * Assessment: 1. N ausea - R11.0 (Primary) Plan: * Treatment: * Procedure Codes: * true * Date: Generated for Rene michelle/Mariajose/Mallory on: 0 06/22/2024 02:34 PM CDT
--- OUTSIDE RECORDS SUMMARY | 2024-06-22 14:34 | XMS_ITS | Patient Health Record ---
Author Organization [facility] [employer] Address [address] [place] [address] Care Team Providers Care Cylinder Press Operator Helper Name Role Phone Candace Jacome MD Primary Care Provider Renny Carrero Unavailable [phone] Migration, Provider Unavailable Unavailable Allergies No Known [...] Oxazepam (BZO) n 0 - 300 ng/ml 0-dyvuklssnq-1,5-qiiyspyu-7,3-diphenylpyrrolidine (VANDANA P) n 0 - 300 ng/ml Methamphetamine (MET) n 0 - 1000 ng/ml Methylenedioxymethamphetamine (MDMA) n 0 - 500 ng/ml Morphine (MOP 300/[id number]) n 0 - 300 ng/ml Methadone (MTD) n 0 - 300 ng/ml Phencyclidine (PCP) n 0 - 25 ng/ml Nortriptyline (TCA) n 0 - 1000 ng/ml Oxycodone n 0 - 300 ng/ml x n 0 - 300 ng/ml Reason For Referral No Information Medications Medication [...] Once a day for 30 days Active Immunizations Vaccine Route Administration Date Status [...] A dministered MMR Unknown 02/18/1993 Administered Novel Hdnabxdsv-[id number], preservative free Unknown 12/06/2016 Administered OPV Unknown [...] Risk Notes Problem Mixed bipolar I disorder (55771914) Bipolar disorder, current episode mixed, unspecified (F31.60) 4 Active confirmed Problem Generalized anxiety disorder (46776730) Generalized anxiety disorder (F41.1) 4 Active confirmed Problem 10619372 Mixed obsessional thoughts and acts (F42.2) Active confirmed Problem [id number] Depressed bipolar disorder (F31.9) Active confirmed Vital Signs Heart Rate 75 /min 04/17/2024 Blood pressure diastolic 85 mm Hg 04/17/2024 Height-cm 162.56 cm 04/17/2024 Weight-kg 90.27 kg 04/17/2024 Height 64.00 in 04/17/2024 Blood pressure systolic 121 mm Hg 04/17/2024 Weight 199 lbs 04/17/2024 BMI 34.15 kg/m2 04/17/2024 Encounters Encounter Location Date Provider Diagnosis [facility] [place] [id number] [facility] [address] [address] 07/12/2023 Renny Verdin Generalized anxiety disorder F41.1 and Bipolar disorder, current episode mixed, unspecified F31.60 [facility] [address] [facility] [address] [place] [address] 02/21/2024 Renny Verdin Generalized anxiety disorder F41.1 ; Mixed obsessional thoughts and acts F42.2 and Depressed bipolar disorder F31.9 [facility] [address] [facility] [address] [facility] [address] [place] [address] 04/17/2024 Renny Verdin Generalized anxiety disorder F41.1 ; Mixed obsessional thoughts and acts F42.2 and Depressed bipolar disorder F31.9 [facility] [place] [address] [facility] [address] [facility] [address] [place] [address] 08/07/2023 [facility] [address] [facility] [address] [place] [address] 08/08/2023 Provider Migration [facility] [address] [facility] [address] [place] [address] 01/10/2024 Rennycourtney Torresoza [facility] [address] [facility] [address] [facility] [address] [place] [address] 01/11/2024 Renny Nagela Bipolar disorder, current episode mixed, unspecified F31.60 [place] [address] [facility] [address] [place] [address] 02/28/2024 Renny Torresoza Nausea R11.[address] [address] 05/09/2024 Renny Nagela Mixed obsessional thoughts and acts F42.2 Assessments Encounter Date Diagnosis (ICD Code) Assessment [...] to discuss depressive symptoms with counselor 3. Obsessive-Comp ulsive Disorder (OCD) and Intrusive Thoughts: - Sertraline [...] clinic immediately. 02/28/2024 Nausea (ICD-10 - R11.0) 04/17/2024 Generalized anxiety disorder (ICD-10 - F41.1) alprazolam 0.5mg daily prn 05/09/2024 Mixed obsessional thoughts and acts (ICD-10 - F42.2) 07/12/2023 Bipolar disorder, current episode mixed, unspecified (ICD-10 - F31.60) 07/12/2023 Generalized anxiety disorder (ICD-10 - F41.1) 04/17/2024 Mixed obsessional thoughts and acts (ICD-10 - F42.2) 02/21/2024 Mixed obsessional thoughts and acts (ICD-10 [...] to discuss depressive symptoms with counselor 3. Obsessive-Comp ulsive Disorder (OCD) and Intrusive Thoughts: - Sertraline [...] to discuss depressive symptoms with counselor 3. Obsessive-Comp ulsive Disorder (OCD) and Intrusive Thoughts: - Sertraline [...] symptoms, they should contact the clinic immediately. 04/17/2024 Depressed bipolar disorder (ICD-10 - F31.9) [...] reports a recent hypomanic episode with impulsive decision-making . Plan: - Continue lamotrigine and Vraylar as [...] adjust treatment as needed. Plan Of Treatment No Information Insurance Providers Payer Name Payer Address Payer Phone Subscriber Number Group Number Insured Name Patient Relationship to Insured Coverage Start Date Coverage End Date [facility] [address] [place] [address] [id number] MAIRA ATKINS Spouse - patient is the [...]
--- OUTSIDE RECORDS SUMMARY | 2024-06-22 14:34 | XMS_ITS ---
Author Organization [facility] Address [facility] [facility] [address] [place] [address] Care Team Providers Care Lead Qa Analyst Name Role Phone Ayaz GILLESPIE, Candace Primary Care Provider Arely Renny Comer Unavailable [phone] REASON FOR VISIT New Refill Request Medications Medication SIG (Take, Route, Fr equency, Duration) Notes Start Date End Date Status Sertraline HCl 100 MG 1 tablet Oral Once a day for 30 days Active Social History Sex Assigned At : Social History Observation Description Sex Assigned At Female Encounters Encounter Location Date Provider Diagnosis [facility] [address] [facility] [address] [place] [address] 05/09/2024 Renny Verdin Mixed obsessional thoughts and acts F42.2 Assessments Encounter Date Diagnosis (ICD Code) Assessment Notes Treatment Notes Treatment Clinical Notes Section Notes 05/09/2024 Mixed obsessional thoughts and acts (ICD-10 - F42.2) Plan Of Treatment Medication Medication Name Sig Start Date Stop Date Notes Sertraline HCl 100 MG 1 tablet Oral Once a day for 30 days Progress Notes * JOSSE ATKINS ANNDOB:[birth year] (33 yo F)Acc No.[id number]:05/09/2024 Patient: Scotty BENÍTEZJOSSE :1990 A ge:33 Y S ex:Female Address:[address], [place], [address] * Refills Refill Sertraline HCl Tablet, 100 MG, Oral, 30 Tablet, 1 tablet, Once a day, 30 days, Refills=1 * true * Date: Generated for Rene michelle/Mariajose/Mallory on: 0 06/22/2024 02:34 PM CDT
== END 2024-06-22 14:08 | disposition home or self-care (01) ==
PROVIDERS: PCP Student in an Organized Health Care Education/Training Program; Visit Provider Nurse Practitioner Women's Health
DX: N83.202 Unspecified ovarian cyst, left side (principal); R10.2 Pelvic and perineal pain
CPT/HCPCS: 76830; 76856

== ENCOUNTER 2025-01-31 11:58 | Emergency (ER) | payer OTHER, SELFPAY ==
--- NOTE | ~2025-01-31 | CT_ITS ---
CT HEAD NON-CONTRAST Clinical History: headache Comparison: None Technique: Unenhanced axial images skull base to vertex Coronal, sagittal reformats CT images acquired with automatic exposure control for dose reduction DLP: 605 mGy-cm Findings: Sulci, ventricles: Unremarkable. No intracerebral hemorrhage. No evidence acute territorial infarct. No mass effect, midline shift. Bony calvarium intact. Visualized paranasal sinuses: Left maxillary unopacified, with posteriorly oriented probable nasal polyps. Mastoid air cells: Small fluid left side. IMPRESSION: 1. No acute intracranial findings. Reviewed, dictated and finalized at location R. TITATIVE ANALYST
[2025-01-31 12:01] VITALS: BP 150/90; PULSE 97; RESP 18; TEMP 36.8; O2SAT 99
--- NOTE | 2025-01-31 12:44 | ED.GENADULT ---
HPI - General Adult General Chief complaint: Recheck/Abnormal Lab/Rx Stated complaint: preg, htn, Time Seen by Provider: 01/31/25 12:36 History of Present Illness HPI narrative: Pt is around 6 weeks and and says she has dull MEEK and feels fuzzy. Pt denies abdominal pain or vaginal bleeding. Pt says her BP is elevated. Pt denies CP or SOB. Related Data Home Medications ?Medication ?Instructions ?Recorded ?Confirmed ?Last Taken ?Type cariprazine 3 mg capsule (Vraylar) 3 mg PO HS 04/07/24 06/05/24 04/06/24 History lamotrigine 100 mg tablet 100 mg PO Q12H 04/07/24 06/05/24 04/06/24 History sertraline 100 mg tablet 100 mg PO HS 04/07/24 06/05/24 04/06/24 History Allergies Allergy/AdvReac Type Severity Reaction Status Date / Time No Known Allergies Allergy Verified 01/31/25 12:35 Review of Systems Review of Systems: All systems reviewed & are unremarkable except as noted in HPI and below PMFSH Past Medical History Medical History No significant past medical history Surgical History Surgical History No significant past surgical history Social History Social History Years smoked: 10 Tobacco type: e-cigarettes/vaping Alcohol intake: never Substance use: never Substance use type: marijuana Do You Feel Safe in your Home?: Yes Lack of Transportation: No Lack of Food: Never True Current Housing: I Have Housing Concerned About Future Housing: No Difficulty Paying Gas/Electric Bills: No Difficulty Paying for Meds: No Currently Unemployed: No Education: Bachelor's Degree Difficulty w/ Childcare or Family Care: No Living arrangements: with family Gender identity (if verbalized by the patient): Female Spiritual care concerns: No Exam Const: General: healthy appearing and no acute distress Nutritional Appearance: well nourished Orientation/consciousness: patient oriented x3 Limitations: no limitations HENMT: Head: normal to inspection Mouth: Yes Normal oral and palatal mucosa present Eyes: Conjunctivae: conjunctivae normal EOM: EOMs intact bilaterally Resp: Effort & Inspection: normal respiratory effort Auscultation: clear to auscultation bilaterally Cardio: Rate: regular rate Rhythm: regular rhythm GI: GI Palp: Yes Soft to palpation and No Tenderness to palpation present (GI) Auscultation: normal bowel sounds Skin: General skin exam: normal color Wounds: no wounds Neuro: General: patient oriented x3, moves all extremities, no meningeal signs and CN's II-XI intact bilaterally Speech: normal speech Extrem: General: normal to inspection and no clubbing, cyanosis or edema Psych: Mental Status: mental status grossly normal Affect: normal affect Attitude: cooperative Course Vital Signs Vital signs: Vital Signs Temperature 98.3 F 01/31/25 12:01 Pulse Rate 97 01/31/25 12:01 Respiratory Rate 18 01/31/25 12:01 Blood Pressure 150/90 H 01/31/25 12:01 Pulse Oximetry 99 01/31/25 12:01 Temperature 98.3 F 01/31/25 12:01 Pulse Rate 97 01/31/25 15:32 Respiratory Rate 16 01/31/25 15:32 Blood Pressure 140/105 H 01/31/25 15:32 Pulse Oximetry 100 01/31/25 15:32 Medical Decision Making MDM Narrative Medical decision making narrative: Pt is very early and has MEEK and feels funny. Seems early for any preeclamptic or HELLP syndrome. will check labs and get bhcg and ct brain. CT and labs normal. SBP [address] Freeman and no treatment needed yet. She will see in follow up. Vital Signs Vital Signs: Vital Signs Temperature 98.3 F 01/31/25 12:01 Pulse Rate 97 01/31/25 12:01 Respiratory Rate 18 01/31/25 12:01 Blood Pressure 150/90 H 01/31/25 12:01 Pulse Oximetry 99 01/31/25 12:01 Temperature 98.3 F 01/31/25 12:01 Pulse Rate 97 01/31/25 15:32 Respiratory Rate 16 01/31/25 15:32 Blood Pressure 140/105 H 01/31/25 15:32 Pulse Oximetry 100 01/31/25 15:32 Lab Data 01/31/25 12:54 01/31/25 12:54 Labs: Lab Results 11/12/25 Range/Units 12:54 WBC 9.2 (4.5-10.0) K/mm3 RBC 4.35 (4.2-5.4) M/mm3 Hgb 13.2 (12.0-15.0) g/dL Hct 38.8 (37.0-47.0) % MCV 89.2 (80-100) fl MCH 30.3 (26-34) pg MCHC 34.0 (32-36) g/dl RDW 12.7 (11.5-14.5) % Plt Count 314 (150-375) k/mm3 MPV 9.4 (7.4-10.4) fl Immature Gran % (Auto) 0.2 (0-0.5) % Neut % (Auto) 71.9 (45.5-73.1) % Lymph % (Auto) 20.8 (18.3-44.2) % Dent % (Auto) 6.7 (2.6-8.5) % Eos % (Auto) 0.1 (0-4.4) % Baso % (Auto) 0.3 (0.2-1.2) % Lymph # (Auto) 1.91 (0.9-3.2) K/mm3 Dent # (Auto) 0.6 (0.1-0.6) K/mm3 Eos # (Auto) 0.0 (0-0.3) K/mm3 Baso # (Auto) 0.0 (0.0-0.1) K/mm3 Abs Immat Gran (auto) 0.02 (0.00-0.031) K/mm3 Absolute Neuts (auto) 6.6 (1.3-6.7) K/mm3 Absolute Nucleated RBC 0.000 (0.0-0.012) K/mm3 Nucleated RBC % 0.0 (0.0-0.2) % Sodium 134 L (137-145) mmol/L Potassium 3.6 (3.4-5.0) mmol/L Chloride 106 (98-107) mmol/L Carbon Dioxide 20 L (22-30) mmol/L Anion Gap 8 (4-12) mmol/L BUN 6 L (7-17) mg/dL Creatinine 0.81 (0.7-1.0) mg/dL Estim Creat Clear Calc 91 ml/min Estimated GFR > 60 (59 - ) Glucose 96 (65-110) mg/dL Calcium 8.9 (8.4-10.2) mg/dL Total Bilirubin 0.6 (0.2-1.3) mg/dL AST 26 (14-36) U/L ALT 17 (6-35) U/L Alkaline Phosphatase 58 (38-126) U/L Total Protein 7.8 (6.3-8.2) g/dL Albumin 4.5 (3.5-5.1) g/dL Beta HCG, Quant 4739.10 mIU/ML Urine Color Yellow (Yellow) Urine Appearance Clear (Clear) Urine pH 6.5 (5.0-9.0) Ur Specific [place] 1.010 (1.001-1.035) Urine Protein Negative (Negative) mg/dL Urine Glucose (UA) Negative (Negative) mg/dL Urine Ketones Negative (Negative) mg/dL Ur Blood (Man) Negative (Negative) Urine Nitrate Negative (Negative) Urine Bilirubin Negative (Negative) Urine Urobilinogen 0.2 (<2.0) mg/dL Leukocyte Esterase Rfl Trace H (Negative) PAOLA/UL Urine RBC 0-2 (0-2) /hpf Urine WBC 0-5 (0-3) /hpf Ur Squamous Epith Cells Occasional (Few) /hpf Urine Bacteria None seen /hpf Urine Casts 0-2 Imaging Data Radiologist's impression: [place] [address] [place] [address] CT Scan Report Signed Patient: Georgette Riena : 1990 MR#: [id number] Age: 34 Acct:[id number] Loc: [facility] ADM Date: 01/31/[address]: Ordering Physician: Ofe Medley III, DO Date of Service: 01/31/25 Procedure(s): CT brain wo con Accession Number(s): [id number] cc: Ofe Medley III, DO; Ayaz, Candace Funes MD~ CT HEAD NON-CONTRAST Clinical History: headache Comparison: None Technique: Unenhanced axial images skull base to vertex Coronal, sagittal reformats CT images acquired with automatic exposure control for dose reduction DLP: 605 mGy-cm Findings: Sulci, ventricles: Unremarkable. No intracerebral hemorrhage. No evidence acute territorial infarct. No mass effect, midline shift. Bony calvarium intact. Visualized paranasal sinuses: Left maxillary unopacified, with posteriorly oriented probable nasal polyps. Mastoid air cells: Small fluid left side. IMPRESSION: 1. No acute intracranial findings. Reviewed, dictated and finalized at location R. [place] ADMINISTRATIVE ASSISTANT Please be advised this is a medical document. It is intended for [id number] communication. It is written in medical language and may contain unfamiliar abbreviations or verbiage. Medical documents are intended to carry relevant information, facts as evident, and the clinical opinion of the practitioner at the time of the encounter. This report may have been done utilizing a voice recognition system. Attempts have been made to correct errors. However, there may be uncorrected grammatical, spelling, and recognition errors present. The file time of this note does not necessarily represent the time of service. Dictated By: Zachery Gaytan MD 01/31/25 1312 Signed By: <Electronically signed by Zachery Gaytan MD in OV> Discharge Plan Discharge Clinical Impression: Patient Disposition: Home Condition: Stable Instructions: Antibiotic Form, Hypertension During (ED) Patient Language: Sammarinese Prescriptions: No Action lamotrigine 100 mg tablet 100 mg PO Q12H sertraline 100 mg tablet 100 mg PO HS Vraylar 3 mg capsule 3 mg PO HS Follow-up/Referrals: Ayaz,Candace Funes MD [Primary Care Provider, Unknown] Rupal Freeman MD [Physician, CUSTOMER ADVOCATE]
[2025-01-31 13:01] LABS: Hematocrit 38.8 % (37.0-47.0); Hemoglobin 13.2 g/dL (12.0-15.0); Immature Granulocyte Percent A 0.2 % (0-0.5); Lymphocytes Absolute Auto 1.91 K/mm3 (0.9-3.2); Mean Corpuscular HGB Conc 34.0 g/dl (32-36); Mean Corpuscular Hemoglobin 30.3 pg (26-34); Mean Corpuscular Volume 89.2 fl (80-100); Nucleated Red Blood Cells Absolute Auto 0.000 K/mm3 (0.0-0.012); Nucleated Red Blood Cells Perc 0.0 % (0.0-0.2); Platelet Count Result 314 k/mm3 (150-375); Red Blood Count 4.35 M/mm3 (4.2-5.4); White Blood Count 9.2 K/mm3 (4.5-10.0)
[2025-01-31 13:07] LABS: Add Urine Microscopic? YES; Appearance Urine Clear (Clear); Glucose Urine UA Negative (Negative); Leukocyte Esterase Ur Trace LEU/UL (Negative); Nitrate Urine Negative (Negative); Non Pathogenic Casts 0-2; Specific Grav Ur 1.010 (1.001-1.035)
[2025-01-31 13:16] LABS: Alanine Aminotransferase 17 U/L (6-35); Albumin Level 4.5 g/dL (3.5-5.1); Alkaline Phosphatase 58 U/L (38-126); Anion Gap 8 mmol/L (4-12); Aspartate Amino Transferase 26 U/L (14-36); Bilirubin,Total 0.6 mg/dL (0.2-1.3); Blood Urea Nitrogen 6 mg/dL (7-17); Calcium 8.9 mg/dL (8.4-10.2); Carbon Dioxide 20 mmol/L (22-30); Chloride 106 mmol/L (98-107); Estimated CRCL calculation 91 ml/min; Estimated Glomerular Filt Rate > 60; Glucose 96 mg/dL (65-110); Potassium 3.6 mmol/L (3.4-5.0); Sodium 134 mmol/L (137-145); Total Protein 7.8 g/dL (6.3-8.2)
--- OUTSIDE RECORDS SUMMARY | 2025-01-31 13:21 | XMS_ITS | Patient Health Record ---
Author Organization [facility] Address [address] [place] [address] Care Team Providers Care Coal Unloader Name Role Phone Ayaz GILLESPIE, Candace Primary Care Provider Renny Carrero Unavailable [phone] Allergies No Known Allergies Results Component Value Reference Range Notes UDT Reviewed date:02/28/2024 10:20:18 AM Interpretation: Performing Lab: Notes/Report: Amphetamine (AMP) n 0 - 1000 ng/ml Buprenorphine (BUP) n 0 - 10 ng/ml Oxazepam (BZO) n 0 - 300 ng/ml Cocaine (LISA) n 0 - 300 ng/ml Methamphetamine (mAMP) n 0 - 300 ng/ml Methylenedioxymethamphetamine (MDMA) n 0 - 500 ng/ml Morphine (MOP) n 0 - 25 ng/ml Methadone (MTD) n 0 - 300 ng/ml Oxycodone (OXY) n 0 - 300 ng/ml THC p 0 - 50 ng/ml x n 0 - 1000 ng/ml x n 0 - 1000 ng/ml x n 0 - 300 ng/ml x n 0 - 300 ng/ml x n 0 - 300 ng/ml Test Reviewed date:02/28/2024 10:20:18 AM Interpretation: Performing Lab: Notes/Report: Test urine n 0 - 0 Reason For Referral No Information Medications Medication SIG (Take, Route, Frequency, Duration) Notes Start Date End Date Status ALPRAZolam 0.5 MG Tablet 1 tablet Orally once a day; Duration: 30 days As needed 08/01/2024 Active Vraylar 1.5 MG Capsule 1 capsule Orally Once a day; Duration: 14 days 08/02/2024 Active Ondansetron HCl 8 MG Tablet 1 tablet as needed Orally twice a day; Duration: 14 days 02/29/2024 Active Sertraline HCl 100 MG Tablet 1 tablet Oral Once a day; Duration: 90 days Active Vraylar 3 MG Capsule 1 capsule Oral Once a day; Duration: 14 days dose decrease Active lamoTRIgine 100 MG Tablet 1 tablet Orally twice a day; Duration: 90 days Active Immunizations Vaccine Route Administration Date [...] A dministered MMR Unknown 02/18/1993 Administered Novel [id number], preservative free Unknown 12/06/2016 Administered OPV Unknown [...] Date Details (start date - stop date) Former Smoker NA - NA Sex Assigned At : Social History Observation Description Sex Assigned At Female Social History Miscellaneous: Social Info Question Answer Notes Advance Care Planning Are you your own decision-maker Yes Do you have Power of Casino Worker for Health or [facility]? No Social History Social Info Question Answer Notes Household: Marital Status: Number of Adults in household: 2 Drug/Alcohol: Social Info Question Answer Notes Drugs Have you used drugs other than those for medical reasons in the past 12 months? No AUDIT-C (Standard) Did you have a drink containing alcohol in the past year? Yes Interpretation Positive How often did you have six or more drinks on one occasion in the past year? Less than monthly (1 point) How many drinks did you have on a typical day when you were drinking in the past year? 3 or 4 drinks (1 point) How often did you have a drink containing alcohol in the past year? Monthly or less (1 point) Tobacco Use: Social Info Question Answer Notes Tobacco Control (Standard) How long has it been since you last smoked? 3-6 months Tobacco use: Former smoker Additional Details Category Social Info Options Details Migrated Social History Migrated Social History Alcohol Intake: Occasional 06/17/2020,Tobacco Years: Former smoker 06/17/2020,Smoking Status: 6 12/08/2022 Problems Problem Type SNOMED Code ICD Code Onset Dates Problem Status W/U Status Risk Notes Problem Mixed bipolar I disorder (63860082) Bipolar disorder, current episode mixed, unspecified (F31.60) 4 Active confirmed Problem Generalized anxiety disorder (53844110) Generalized anxiety disorder (F41.1) 4 Active confirmed Problem Obsessive-compul sive disorder (385734134) Mixed obsessional thoughts and acts (F42.2) Active confirmed Problem Bipolar disorder (80088879) Depressed bipolar disorder (F31.9) Active confirmed Vital Signs Heart Rate 84 /min 08/01/2024 Height-cm 162.56 cm 08/01/2024 Blood pressure diastolic 85 mm Hg 08/01/2024 Weight-kg 90.27 kg 08/01/2024 Height 64.00 in 08/01/2024 Blood pressure systolic 165 mm Hg 08/01/2024 Weight 199 lbs 08/01/2024 BMI 34.15 kg/m2 08/01/2024 Encounters Encounter Location Date Provider Diagnosis [facility] [address] [place] [address] 02/21/2024 Renny Verdin Generalized anxiety disorder F41.1 ; Mixed obsessional thoughts and acts F42.2 and Depressed bipolar disorder F31.9 [facility] [place] [address] [facility] [address] [place] [address] 04/17/2024 Renny Verdin Generalized anxiety disorder F41.1 ; Mixed obsessional thoughts and acts F42.2 and Depressed bipolar disorder F31.9 [place] [address] [facility] [address] [place] [address] 08/01/2024 Renny Verdin Encounter for screen ing for cardiovascular disorders Z13.6 ; Negative depression screening Z13.31 ; Generalized anxiety disorder F41.1 ; Mixed obsessional thoughts and acts F42.2 and Depressed bipolar disorder F31.9 [place] [address] [address] 02/28/2024 Renny Verdin Nausea R11.0 [facility] [place] [address] [address] 05/09/2024 Renny Verdin Mixed obsessional thoughts and acts F42.2 [facility] [place] [address] [address] 08/02/2024 Renny Verdin Bipolar disorder, current episode mixed, unspecified F31.60 [place] [address] [address] 08/16/2024 Renny Verdin [facility] [place] [address] [address] 08/16/2024 Renny Verdin Assessments Encounter Date Diagnosis (ICD Code) Assessment Notes Treatment Notes Treatment Clinical Notes Section Notes 08/02/2024 Bipolar disorder, current episode mixed, unspecified (ICD-10 - F31.60) 05/09/2024 Mixed obsessional thoughts and acts (ICD-10 - F42.2) 08/01/2024 Encounter for screening for cardiovascular disorders (ICD-10 - Z13.6) 02/21/2024 Generalized anxiety disorder (ICD-10 - F41.1) [...] symptoms, they should contact the clinic immediately. 08/01/2024 Negative depression screening (ICD-10 - Z13.31) 08/01/2024 Generalized anxiety disorder (ICD-10 - F41.1) alprazolam 0.5mg daily prn 02/21/2024 Depressed bipolar disorder (ICD-10 - F31.9) [...] 04/17/2024 Depressed bipolar disorder (ICD-10 - F31.9) 08/01/2024 Mixed obsessional thoughts and acts (ICD-10 - F42.2) 08/01/2024 Depressed bipolar disorder (ICD-10 - F31.9) 04/17/2024 [...] patient's progress and adjust treatment as needed. 08/01/2024 Amy Reina, a female patient with a history of psychiatric medication use, presents to discuss medication management in preparation for planned . Medication management for planned Assessment: Patient is currently on Vraylar 3mg, lamotrigine 100mg twice daily, and sertraline for psychiatric management. She reports improved symptoms with minimal depression and reduced intrusive thoughts. The patient and her plan to start trying for in October. Her OB-BUSINESS LAW INSTRUCTOR has expressed concerns about the use of Vraylar during due to limited data on its safety. Lamotrigine and sertraline are considered safer options during based on available evidence and clinical experience. Plan: - Taper Vraylar: - Decrease from 3mg to 1.5mg daily for 2 weeks - Discontinue completely after 2 weeks - Continue lamotrigine 100mg twice daily - Patient to join registry for lamotrigine use during - Anticipate potential need for dose increase during due to increased circulating body volume - Continue sertraline (dose not specified) - Refill Xanax 0.5mg as needed for anxiety - Follow-up appointment in 6 weeks to assess response to Vraylar taper - Patient to continue current therapy sessions, considering increasing frequency to weekly in preparation for the note is transcribed using speech recognition software. It is a reflection of a visit with the patient. It might have some inaccuracy, including medication names and transcribing errors, though efforts have been made to correct them. Plan Of Treatment No Information Insurance Providers Payer Name Payer Address Payer Phone Subscriber Number Group Number Insured Name Patient Relationship to Insured Coverage Start Date Coverage End Date [facility] [address] [place] [address] [id number] MAIRA REINA Spouse - patient is the spouse of [...]
--- OUTSIDE RECORDS SUMMARY | 2025-01-31 13:21 | XMS_ITS | Data Portability ---
Author Organization [facility] Address [address] [place] [address] [place] [address] Care Team Providers Care Senior Commissions Analyst Name Role Phone YUMIKO SANJU Primary Care Provider Assessment No assessment recorded. Plan of Treatment Reminders Order Date Submit Date Provider Last Modified By Organization Details Last Modified Time Details Appointments None recorded. Lab None recorded. Referral None recorded. Procedures None recorded. Surgeries laparoscopi c ovarian cystectomy (SURG) 2024 025 [facility], [address], [place], [address], 09:53:13 Imaging US, pelvis 2024 [address]25 [address], [address], [place], [address], 22:46:02 US, transvagina l 2024 [address], [address], [place], [address], 22:46:02 Medication Orders None recorded. Patient TargetsNo targets recorded. Patient InstructionsNo instructions recorded. Reason for Referral None Reported. Results Created Date Observation Date Name Description Value Unit Range Abnormal Flag Note LastModifiedBy Organization Detail LastModifiedTime 05/01/1905/01/2024 US, pelvi s No observ ation record ed. [email or web address] [place] [address], [place], [address], 05/01/2024 13:57:03 05/01/1905/01/2024 US, trans vagin al No observ ation record ed. [email or web address] [place] [address], [place], [address], 05/01/2024 13:57:13 05/01/19 25 05/01/2024 US, pelvi s No observ ation record ed. Merary [address] [place] [address] [address], [place], [address], 05/30/2024 10:42:57 Result Notes None recorded. Procedures Surgical History Date Name Laterality Status Provider Name and Address Organization Details Recorded Time 06/15/19 LAPAROSCOPIC OVARIAN CYSTECTOMY (SURG) completed Rupal Shaw [facility] 06/16/2024 18:36:51 Imaging Results None recorded. Procedure Notes None recorded. Medical Equipment None Reported. Allergies No known drug allergies Medications Name Sig Start Date Stop Date Status Note LastModified by Organization Details LastModified Time ondansetron HCl 8 mg tablet TAKE 1 TABLET BY MOUTH TWICE DAILY FOR 14 DAYS NEEDED 04/17 completed Not Available Not Available Not Available ondansetron HCl 4 mg tablet 04/17 completed Not Available Not Available Not Available sertraline 100 mg tablet TAKE 1 TABLET BY MOUTH DAILY active Not Available Not Available No t Available sertraline 25 mg tablet 04/17 completed Not Available Not Available Not Available lamotrigine 100 mg tablet TAKE 1 TABLET BY MOUTH TWICE DAILY active Not Available Not Available No t Available Vraylar 3 mg capsule TAKE 1 CAPSULE BY MOUTH DAILY active Not Available Not Available No t Available Vitals Date Recorded Body height Body mass index (BMI) Body weight Systolic And Diastolic Provider Name and Address Organization Details Last Updated DateTime 04/17/2024 162.56 cm 34.2 kg/m2 06882.88 g 135/85 mm[Hg] Pau Cavazos [facility] 04/17/2024 14:04:43 Date Recorded Body height Body mass index (BMI) Body weight Systolic And Diastolic Provider Name and Address Organization Details Last Updated DateTime 05/15/2024 162.56 cm 34 kg/m2 67746.29 g 125/85 mm[Hg] Pau Cavazos [facility] 05/15/2024 09:53:58 Social History Question Answer Notes LastModified by Organizat ion Details LastModified Time Tobacco Smoking Status Never Smoker Pau Cavazos null, [facility] 04/17/2024 14:10:18 Are You Blind Or Do You Have Difficulty Seeing? No Information n ot available 04/17/2024 What Is Your Level Of Caffeine Consumption? Moderate Information not available 04/17/2024 In The 14 Days Before Symptom Onset, Have You Had Close Contact With A Laboratory-confirm ed COVID-19 While That Case Was Ill? No Information n ot available 04/17/2024 In The 14 Days Before Symptom Onset, Have You Had Close Contact With A Person Who Is Under Investigation For COVID-19 While That Person Was Ill? No Information not available 04/17/2024 Have You Been To An Area Known To Be High Risk For COVID-19? No Information not available 04/17/2024 Are You Deaf Or Do You Have Serious Difficulty Hearing? No Information not available 04/17/2024 What Type Of Diet Are You Following? REGULAR Information n ot available 04/17/2024 What Is The Highest Grade Or Level Of School You Have Completed Or The Highest Degree You Have Received? [id number] Information not available 04/17/2024 Are There Any Guns Present In Your Home? No Information not available 04/17/2024 Do You Use Protection During Sex? Always Information not available 04/17/2024 Do You Use Your Seat Belt Or Car Seat Routinely? Yes Information not available 04/17/2024 Are You Sexually Active? Yes Information not available 04/17/2024 Do You Have Smoke And Carbon Monoxide Detectors In Your Home? Yes Information not available 04/17/2024 Do You Use Sunscreen Routinely? No Information not available 04/17/2024 Do You Have Difficulty Walking Or Climbing Stairs? No Information not available 04/17/2024 Sex: Female Functional Status Question Answer Note LastModified by Organizat ion Details LastModified Time Do you use any illicit or recreational drugs? No Information not available 04/17/2024 What is your level of alcohol consumption? Occasional Information not available 04/17/2024 Are you currently employed? Yes Information not available 04/17/2024 Are you able to walk independently without assistance or assistive devices? YESWOREST Information not available 04/17/2024 Are you able to care for yourself independently? 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 No Information not available 04/17/2024 What is your exercise level? Occasional Information not available 04/17/2024 Mental Status Question Answer Note LastModified by Organization D etails LastModified Time Do you feel stressed (tense, restless, nervous, or anxious, or unable to sleep at night)? [id number] Information not available 04/17/2024 Family History Relationship Description Onset Age of this Age Resolved Age Notes LastModified by Organization Details LastModified Time Maternal Grandmother Malignant neoplasm of breast Not available 2024 14:10:02 Medical History Condition Response Allergies (Food, seasonal, environmental ) N Other N Breast Cancer N Drug/Latex Allergies/Reactions N Blood Transfusion N Dermatologic Disorders N Lung Disease N Defects or Inherited Disease N Breast Problem N Gestational Diabetes N Hematologic disorders N Anesthesia Complications N History of STI N Deep Vein Thrombosis N Polycystic ovary syndrome N Anxiety Disorder Y Autoimmune disease N Arthritis N Infertility N Polyps N Acid Reflux (GERD) N History of abnormal pap N Cancer N Stroke N Varicosities N Neurologic/Epilepsy N Endometriosis N High Cholesterol N Headaches N Fibromyalgia N Kidney Disease N Heart Problems N Kidney or Bladder Problems N Thyroid Problems N GI Problems N Eating Disorder N Anemia N Art (IVF or FET) N Psychiatric Illness Y Ovarian Cancer N Diabetes N Pulmonary (TB, Asthma) N Hepatitis/Liver Disease N No Past Medical History N Eczema N Urinary Tract Infection N Abuse/Domestic Violence N Asthma N Trauma/Violence N Depression/ depression Y Heart Disease N Pre-Eclampsia N Hypertension N Osteoporosis N Thrombophilias N Gynecological History Statement/Question Response Flow Light Date of LMP 05/11/2024 Was last menstrual period normal Y STIs/STDs N HPV Vaccine N Duration of Flow (days) 5 Current Control Method Condoms Are cycles usually normal Y Frequency of Cycle (Q days) 28 Sexually Active? Y Menses Monthly Y Age of first menstrual cycle 14 Date of Last Pap Smear Sexual Problems? N LMP Definite Obstetrics History GPAL:G 1 P 0 0 0 0 Past Encounters Encounter ID Performer Location Encounter Start Date Encounter Closed Date Diagnosis/Indication Diagnosis SNOMED-CT Code Diagnosis ICD10 Code Diagnosis IMO Codes Diagnosis Note [id number] Derik Fulton MD [place] [address],[place] [address] 04/17/2024 13:16:33 04/17/2024 14:44:50 Cyst of ovary 34797498 N83.209 Pain in pelvis 50104517 R10.2 is a 33-year-ol d female presents for ER follow-up. She had an episode of intense pelvic pain. She was observed overnight in the hospital. Her pain has persisted. Perhaps her cyst remains. We agreed to pelvic ultrasound . She had a CT previously . We will evaluate the cyst in more detail with pelvic ultrasound . She will follow up after that. [id number] Derik Fulton MD [place] [address],[facility] [address] 05/01/2024 12:17:04 05/01/2024 13:38:02 Pain in pelvis 23205272 R10.2 N83.292 is a 33-year-ol d female presents for ER follow-up. She had an episode of intense pelvic pain. She was observed overnight in the hospital. Her pain has persisted. Perhaps her cyst remains. We agreed to pelvic ultrasound . She had a CT previously . We will evaluate the cyst in more detail with pelvic ultrasound . She will follow up after that. [id number] Derik Fulton MD [place] [address],[facility] [place] [address] 05/15/2024 09:45:29 05/15/2024 16:19:43 Cyst of left ovary [id number] N83.202 this patient is a 33-year-ol d with hemorrhagi c left ovarian cyst and bilateral adnexal cystic structures . We have agreed perform laparoscop ic left ovarian cystectomy . She understand s the risks, benefits, and alternativ es. She has completed the informed consent process and is ready to proceed. Hydrosalpinx [id number] N7 0.11 Health Concerns Section Related Observation LastModified by Organization Detai ls LastModified Time None Recorded Concern Status LastModified by Organization Details LastModified Time None Recorded Advance Directives Directive None Recorded Payers Insurance Date Sequence Insurance Name Policy Number Policy Acosta Covered Member ID Acosta Member ID Guarantor Name 06/11/2024 1 [facility] Jorge L Reina [id number] Georgette Reina Notes Date Note Type Note Provider Name and Address Organization Details Recorded Time 04/17/2024 text/html is a 33-year-old female presents for ER follow-up. She had an episode of intense pelvic pain. She was observed overnight in the hospital. Her pain has persisted. Perhaps her cyst remains. We agreed to pelvic ultrasound. She had a CT previously. We will evaluate the cyst in more detail with pelvic ultrasound. She will follow up after that. Derik Fulton MD [address], [place], [address], [facility] 04/17/2024 14:43:08 05/15/2024 text/html 33-year-old female with large hemorrhagic cyst in 2 fluid-filled structures that are located bilaterally in the adnexa. Possible hydrosalpinx. We have agreed to perform Laparoscopic left ovarian cystectomy. At this time we will examined and consider surgical treatment of cystic Adnexal structures. The patient understands the procedure. The procedure was described to the patient in great detail. the patient also understands the risks. The risks were also explained in detail. She understands that injuries May occur during surgery. She understands these injuries can result in hospitalization, more surgery, and severe illness. She understands there is risk of hemorrhage and infection. Derik Fulton MD [address], [place], [address], [facility] 05/15/2024 16:02:13 OBGyn Episode Ob Episode Information Episode Created Date Number of Fetuses Patient Bloodtype Patient rh Status Prepregnancy Weight lbs Domestic Partner Domestic Partner Phone Father Name [employer] Person Status 04/17/19 25 1 CLOSED Fetus Data First Name Last Name Admitted to NICU Weight (g) Sex Living Outcome Pediatric Complications Fetus ID Race Codes Race Delivery Type Full Term [id number] Teo Calculation Initial Teo Date Initial Exam Date Initial Exam Provider Initial Ultrasound Date Last Menstrual Period Date Ultra Sound Weeks Gestation 0 Eighteen To Twenty Week Teo Update Ultra Sound Date Fundal Height At Umbil Quickening Date Ultra Sound Latest Weeks Gestation Final Teo Confirmed By Final Teo Confirmed Date Final Teo Date Ultra Sound Latest Days Gestation 0 0 Menstrual History Last Menstrual Date Menses Monthly On Bcp Conception Prior Menses Frequency Hcg Plus Date Menarche Onset Age Delivery Information Delivery Date Delivery Type Labor Anesthesia Weeks Gestation Incision Type Labor Labor Length Hrs Delivered By Post Complications Tubal Sterilization Discharge Date Comments 6 still Discharge Information Feeding Method Contraceptive Method Maternal HG B and HCT Levels
--- OUTSIDE RECORDS SUMMARY | 2025-01-31 13:49 | XMS_ITS | Clinical Summary ---
Author Organization [facility] Address [address] [place] [address] Care Team Providers Care Latex Caster Name Role Phone Candace Jacome MD Primary Care Provider + Allergies Active Allergy Reactions Criticality Noted Date Comments Topiramate Other (see comment) 03/27/2014 Depression Medications lamoTRIgine (LAMICTAL) 100 MG tablet Take 1 tablet (100 mg total) by mouth 2 (two) times daily. 4 Active Pyridoxine HCl (VITAMIN B-6) 25 MG Tab Take 1 tablet by mouth 3 (three) times daily. Active ondansetron (ZOFRAN-ODT) 4 MG disintegrating tabletIndications: Nausea and vomiting in (HHS/HCC) Take 1 tablet (4 mg total) by mouth every 8 (eight) hours as needed for Nausea. 20 tablet 5 Active VRAYLAR 3 MG capsule Take 1 capsule (3 mg total) by mouth daily. 4 01/30/20 25 Discontin ued(Thera py completed ) ondansetron (ZOFRAN) 8 MG tablet every 8 (eight) hours as needed. 4 01/30/20 25 Discontin ued(Thera py completed ) sertraline (ZOLOFT) 100 MG tablet Take 1 tablet (100 mg total) by mouth daily. 5 01/30/20 25 Discontin ued(Thera py completed ) Active Problems Problem Noted Date Diagnosed Date OCD (obsessive compulsive disorder) 04/14/2024 Overview (04/14/2024): Intrusive thoughts. Ascites 04/12/2024 Overview (04/14/2024): Complex ascites. Admitted for sepsis 03/2024. Hemoperitoneum vs ovarian cyst or peritonitis, PID or diverticulitis. Ovarian cyst was the conclusion. WBC normalized so she was sent home without antibiotics. Admitted 04/07 and discharged 04/08. Bipolar affective disorder, currently depressed, mild 09/26/2018 Overview (04/14/2024): Sees psychiatry, Dr. Verdin locally. Takes lamotrigine, sertraline, vraylar. Estimated Date of Delivery Comme nts Yes 01/11/2025 Encounters Date Type Department Care Team Description 01/29/2025 7:30 AM TIRE MAN Office Visit [facility] [address] [place], [place] [id number] Candace Jacome MD Nausea (She called off work on wed, and Wednesday. Her LMP was 01/11/25. She is needing a note for work. ) 01/29/2025 Travel 01/26/2025 Telephone [facility] [address] [place] [address] Candace Jacome MD from Last 3 Months Immunizations Immunization Administration Dates Next Due Dtp 03/25/1993, 3,01/09/1992,1991 H1N1 Injectable 2009 Influenza 12/06/2016 Hib 02/18/1993, 3,01/09/1992,1991 Hib (Generic) 02/18/1993, 3,01/09/1992,1991 Influenza Adult (Generic) 12/19/2018,12/06/2016, 11/03/2015 MMR 02/18/1993 Opv 03/25/1993,01/09/1992,1991 PFIZER COVID-19 (ORIGINAL FORMULATION, PURPLE CAP) mRNA, LNP-S, PF, 30 MCG/0.3 ML DOSE 05/25/2021,03/29/2020,03/08/2020 Tdap (Adacel) 11/03/2015 Tdap (Boostrix) 11/03/2015 Family History Medical History [...] Given: No Alcohol Use Standard Drinks/Week Comments Not Currently 0 (1 standard drink = 0.6 oz pur e alcohol) Social events PHQ-2 Answer Date Recorded Patient Health Questionnaire-2 Score 2 04/14/2024 Estimated Date of Delivery Comme nts Yes 01/11/2025 Sex and Gender Information Value Date Recorded Sex Assigned at Not on file Legal Sex Female 7:53 PM CDT Gender Identity Not on file Sexual Orientation Straight 03/23/2018 2: 37 PM TIRE MAN Last Filed Vital Signs Vital Sign Reading Time Taken Comments Blood Pressure 137/95 01/29/2025 7:32 AM TIRE MAN Pulse 97 01/29/2025 7:24 AM TIRE MAN Temperature 36.4 C (97.6 F) 01/29/2025 7:24 AM TIRE MAN Respiratory Rate 16 05/28/2020 8:15 AM TIRE MAN Oxygen Saturation 97% 01/29/2025 7:24 AM TIRE MAN Inhaled Oxygen Concentration - - Weight 85.2 kg (187 lb 12.8 oz) 01/29/2025 7:24 AM TIRE MAN Height 162.6 cm (5' 4) 01/29/2025 7:24 AM TIRE MAN Body Mass Index 32.24 01/29/2025 7:24 AM TIRE MAN Plan of Treatment Upcoming Encounters Date Type Department Care Team (Late st Contact Info) Description 04/19/2025 8:30 AM TIRE MAN Office Visit [facility] - [place] [address] [place] [phone] Candace Jacome MD [address] [place] [address] Health Maintenance Due Date Last Done Comments Cervical Cancer Screening Pap Smear (Age 30 to 64) Every 3 Years 1991 Hepatitis C 08/23/2009 Hepatitis B Vaccines (1 of 3 - 19+ 3-dose series) 08/23/2010 HPV Vaccines (1 - 3-dose SCDM series) 08/23/2018 Cervical Cancer Screening Pap with HPV Testing (Age 30 to 64) Every 5 Years 08/23/2021 Cervical Cancer Screening with HPV 08/23/2021 COVID-19 Vaccine ( season) 2024 05/25/2021, 03/29/2020, 03/08/2020 Influenza Adult (#1) 2024 12/19/2018, 12/06/2016, 12/06/2016, Additional history exists Annual Physical 04/14/2025 04/14/2024, 04/26/2019 DTaP, Tdap and Td Vaccines (3 - Td or Tdap) 11/02/2025 11/03/2015, 11/03/2015, 03/25/1993, Additional history exists PHQ-2 (Physician Dunbar) Completed 04/14/2024 Hepatitis A Vaccines Aged Out No long er eligible based on patient's age to complete this topic Meningococcal B Vaccine Aged Out No l onger eligible based on patient's age to complete this topic Meningococcal Vaccine Aged Out No rafia ludy eligible based on patient's age to complete this topic Pneumococcal Vaccine: Pediatrics (0 to 5 Years) and At-Risk Patients (6 to 49 Years) Aged Out No longer eligible based on patient's age to complete this topic RSV Immunization or 60+ Years (No Doses Required) Completed RSV Immunizations Under 20 Months Aged Out No longer eligible based on patient's age to complete this topic Insurance [facility] Care Teams Latex Caster Relationship Specialty Start Date End Date Candace Jacome MD [address] [place] [phone] PCP - General FAMILY PRACTICE 04/14/24
[2025-01-31 15:32] VITALS: BP 140/105; PULSE 97; RESP 16; O2SAT 100
== END 2025-01-31 15:35 | disposition home or self-care (01) ==
PROVIDERS: Emergency Provider Emergency Medicine; PCP Student in an Organized Health Care Education/Training Program
DX: O99.891 Other specified diseases and conditions complicating pregnancy (principal); R51.9 Headache, unspecified
CPT/HCPCS: 36415; 70450; 80053; 81001; 84702; 85025; 99284

== ENCOUNTER 2025-02-13 10:05 | Outpatient (CLI) | payer OTHER, SELFPAY ==
--- NOTE | ~2025-02-13 | US_ITS ---
EXAMINATION: US OB <= 14 weeks fetus DATE: 02/13/2025 10:24 INDICATION: Spotting first trimester TECHNIQUE: Real-time transabdominal and transvaginal obstetric ultrasound. FINDINGS: No prior studies for comparison. The uterus measures 12.2 x 6.9 x 5.4 cm. There is an intrauterine gestational sac, with pole identified. The crown rump length measures 1.04 cm, which correlates with a estimated gestational age of 7 weeks 1 day. heart tones are identified measuring 135 BPM. There is an irregular shaped hypoechoic structure along the gestational sac consistent with subchorionic hemorrhage measuring 3.3 x 3.2 x 1.7 cm. Right ovary within normal limits. Left ovary not visualized. Next film IMPRESSION: 1. SL IUP with an EGA of 7 weeks, 1 days (EDC by current ultrasound of 10/01/2025). 2: Moderate size subchorionic hemorrhage. Reviewed, dictated and finalized at location O. NISTRATIVE SPECIALIST IMPRESSION: 1. SL IUP with an EGA of 7 weeks, 1 days (EDC by current ultrasound of ). 2: Moderate size subchorionic hemorrhage.
== END 2025-02-13 10:06 | disposition home or self-care (01) ==
LOC: GOSHIMG 10:06
PROVIDERS: PCP Obstetrics & Gynecology Gynecology; Visit Provider Obstetrics & Gynecology Gynecology
DX: O26.851 Spotting complicating pregnancy, first trimester (principal); O41.8X10 Other specified disorders of amniotic fluid and membranes, first trimester, not applicable or unspecified; Z3A.00 Weeks of gestation of pregnancy not specified
CPT/HCPCS: 76801